=== PATIENT | male | born 1940 | race Caucasian/White ===

== ENCOUNTER 2020-09-07 13:24 | Outpatient (REF) | payer MEDICARE, MEDICAID, SELFPAY ==
--- NOTE | 2020-09-07 | US_ITS ---
EXAMINATION: ULTRASOUND ARTERIAL LOWER EXTREMITY BILATERAL CLINICAL INFORMATION: Assess for peripheral arterial disease. COMPARISON: None TECHNIQUE: Multiple 2-D grayscale and duplex Doppler ultrasound images of the arteries were obtained in the lower extremity bilaterally. FINDINGS: Mild to moderate echogenic atherosclerotic plaque is seen bilaterally causing areas of mild luminal narrowing. Normal triphasic and biphasic waveforms are seen bilaterally. Peak systolic arterial velocities are as follows in centimeters per second: Left: Common femoral: 156 cm/sec Profunda femoral: 128 cm/sec Superficial femoral proximal: 104 cm/sec Superficial femoral mid: 355 cm/sec. Superficial femoral distal: 163 cm/sec Popliteal: 72 cm/sec. Peroneal: 57 cm/sec Posterior tibial (prox/mid/distal): 17/19/14cm/sec Right: Common femoral: 148 cm/sec Profunda femoral: 105 cm/sec Superficial femoral proximal: 129 cm/sec Superficial femoral mid: 436 cm/sec. Superficial femoral distal: 77 cm/sec Popliteal: 55 cm/sec. Peroneal: 140 cm/sec Posterior tibial (prox/mid/distal): 71/22/35cm/sec US/US arterial duplex LE BI IMPRESSION: Focally increased arterial velocities in the mid segments of the superficial femoral arteries bilaterally as well is in the left peroneal artery. Gross luminal narrowing is seen in these regions secondary to more prominent atherosclerosis. These findings are consistent with moderate grade stenosis.
== END 2020-09-07 13:25 | disposition home or self-care (01) ==
LOC: HO.US 13:24
PROVIDERS: Visit Provider Family Medicine
DX: M79.89 Other specified soft tissue disorders (principal); M79.604 Pain in right leg; M79.605 Pain in left leg; I73.9 Peripheral vascular disease, unspecified
CPT/HCPCS: 93925

== ENCOUNTER 2020-09-15 10:25 | Outpatient (REF) | payer MEDICARE, MEDICAID, SELFPAY ==
--- NOTE | 2020-09-15 10:00 | EMG_ITS ---
HISTORY OF PRESENT ILLNESS: This is an 80-year-old man, who has had diabetes since the mid , who has bilateral lower extremity pain, numbness, and weakness. PHYSICAL EXAMINATION: On examination, he is alert and oriented with normal intellectual functions. Cranial nerves II through XII are normal. Muscle tone and strength are normal in all 4 extremities except for atrophy and weakness of the extensor digitorum brevis muscle bilaterally. Absent reflexes. IMPRESSION: Diabetic peripheral neuropathy. Nerve conduction EMG study: Severe axonal sensory motor peripheral neuropathy in the lower extremities consistent with diabetic neuropathy. EMG evidence of distal chronic denervated changes in the right lower extremity. MD JOSE Mcmillan/TRES / [id number]
== END 2020-09-15 10:26 | disposition home or self-care (01) ==
LOC: HO.NEURO 10:25
PROVIDERS: Visit Provider Family Medicine
DX: M79.604 Pain in right leg (principal); M79.605 Pain in left leg
CPT/HCPCS: 95860; 95886; 95912

== ENCOUNTER 2021-07-08 18:52 | Inpatient (IN) | payer MEDICARE, MEDICAID, SELFPAY ==
--- NOTE | ~2021-07-08 | XR_ITS ---
EXAMINATION: XR CHEST CLINICAL INFORMATION: Hospital admission COMPARISON: None TECHNIQUE: Frontal view of the chest was obtained. FINDINGS: No significant abnormality is noted involving the heart, lungs, mediastinum, bony thorax or soft tissues. XR/XR chest 1V IMPRESSION: No acute intrathoracic disease
--- NOTE | ~2021-07-08 | FL_ITS ---
EXAMINATION: XR BARIUM SWALLOW CLINICAL INFORMATION: Dysphagia/globus sensation COMPARISON: None TECHNIQUE: Fluoroscopic guidance was provided for modified barium swallow performed by speech and hearing department. Patient was administered thin and thick liquid barium and various food media mixed with barium. FINDINGS: No aspiration or penetration is seen with any media. FLUOROSCOPY TIME: 1.9 minutes DOSE AREA PRODUCT: 2 Barba per centimeter squared. FL/FL Modified Barium Swallow IMPRESSION: Unremarkable examination. No aspiration or penetration is seen.
--- NOTE | ~2021-07-08 | CT_ITS ---
EXAMINATION: CT HEAD WITHOUT CONTRAST CLINICAL INFORMATION: Fall. Neuropathy. COMPARISON: Previous head CT June 2012 TECHNIQUE: Contiguous axial imaging was performed from the skull base to vertex without intravenous administration of contrast. This CT examination was performed using dose optimization techniques as appropriate, variously including the following: *Automated exposure control *Adjustment of mA and/or kV according to patient size (this includes techniques or standardized protocols for targeted exams where dose is matched to indication/reason for exam; i.e. extremities or head) *Use of iterative reconstruction technique DLP: 694 mGy-cm FINDINGS: There is no evidence of an extra-axial collection. There is no evidence of intra-axial or extra-axial hemorrhage. The ventricles and extra-axial CSF spaces are slightly prominent suggestive of mild age-appropriate generalized atrophy. There is mild nonspecific periventricular white matter disease. No mass, mass effect or infarct is seen. No skull fracture is seen. There are degenerative changes at C1-C2. Visualized paranasal sinuses, mastoid air cells and middle ears are clear. CT/CT head/brain wo IV con IMPRESSION: No acute findings. Age-related prominence of the ventricles and extra-axial CSF spaces and mild nonspecific periventricular white matter disease.
[2021-07-08 18:59] VITALS: BP 180/80; PULSE 76; O2SAT 99
[2021-07-08 19:08] VITALS: BP 179/72; PULSE 55; RESP 16; TEMP 36.5; O2SAT 99; BMI 24.0
--- NOTE | 2021-07-08 19:49 | PC.NURSE ---
MD Love notified of pt blood glucose [employer]
--- NOTE | 2021-07-08 20:16 | ED.GENADULT ---
HPI - General Adult General Chief complaint: Failure to Thrive Stated complaint: FTT Time Seen by Provider: 07/08/21 20:16 Source: patient Mode of arrival: EMS Limitations: language barrier (Setswana-speaking) History of Present Illness HPI narrative: Patient is an 81-year-old male with unknown past medical history who has not been paying his rent so the landlord called the police for a wellness check. EMS was called because the patient was living in disarray surrounded by urine and trash. Patient states he cannot ambulate because his legs are numb from his toes to his knees. He states this is been getting worse over the last few months. He states he is unable to ambulate and has just been sitting in his chair eating boxed food for the last 6 days. He has no family in the area and is unable to care for himself. He states last time took insulin was about a year ago. He has also has blurry vision, increased thirst and urination and some dizziness. He denies fevers, chest pain, shortness of breath and headache. He states he has no family in the area except for 1 son who lives in [place]. He also is concerned as he has white discharge on his penis underneath the foreskin which she states she has to wipe clean several times per day, it is also itchy.. Related Data Allergies Allergy/AdvReac Type Severity Reaction Status Date / Time No Known Allergies Allergy Unverified 07/08/20 17:17 [No Known Allergies*] Review of Systems Review of Systems: Yes all other systems are reviewed and are negative PMFSH Social History Social History Advance Directives: No Advance Directives Information Provided: No Physical Exam Vital Signs: Vital Signs: Last Vital Signs Temp 98.5 F 07/08/21 23:48 Pulse 55 07/08/21 23:48 Resp 14 07/08/21 23:48 BP 114/52 L 07/08/21 23:48 Pulse Ox 100 07/08/21 23:48 Body Mass Index 24.0 Const: General: cooperative, comfortable, no acute distress and poor hygiene Nutritional Appearance: thin Orientation/consciousness: patient oriented x3 Limitations: no limitations HENMT: Head: Yes normal to inspection, Yes normocephalic and Yes atraumatic Face and sinus: Yes normal facial exam Eyes: General: appearance normal, both eyes and all related structures Pupils: Equal, round and reactive pupils present EOM: EOMs intact bilaterally Neck: Neck: Yes normal visual inspection and Yes full ROM Resp: Effort & Inspection: normal respiratory effort and able to speak in complete sentences Auscultation: clear to auscultation bilaterally Cardio: Rate: regular rate Rhythm: regular rhythm Heart sounds: normal S1 and S2 GI: Inspection: Yes normal to inspection Palpation (GI): Soft to palpation and nontender : Penis: uncircumcised (Thick white surrounding penis ) and foreskin retracts Skin: General skin exam: no rashes or lesions noted Neuro: General: patient oriented x3 Cranial nerves: Yes Equal, round and reactive pupils present Extrem: General: Yes normal to inspection Course Course Course Narrative: 81-year-old male with past medical history of diabetes found living in disarray in his home, has not been paying rent or cleaning himself or his house or eating or taking medications. Vital signs are stable although he is a little hypertensive at 179/72. Physical exam are call for numbness below the knees bilaterally. Patient also has buildup of something over his feet and toes, this could be dirt, will have the nurse oak his feet to be able to perform a better exam. Patient also has not bathed in many weeks, will have nurse wash him. Will get chest x-ray labs, EKG urine COVID and reassess. Likely DKA Reevaluation(s) Reevaluation #1: Blood sugar 629, acetone negative, sodium 132. BUN 19, creatinine 1.41, BNP 168, will give 2 L LR as well as 5 units of insulin. Plan on admission. Text to hospitalist Time: 21:46 Medical Decision Making Lab Data Result diagrams: 07/08/21 20:43 07/08/21 18:46 Labs: Lab Results 07/08/21 07/08/21 07/08/21 Range/Units 18:46 18:46 20:43 WBC 6.8 (4.8-10.8) X10*3/uL RBC 4.18 L (4.60-5.80) X10*6/uL Hgb 13.4 L (14.0-18.0) g/dl Hct 38.3 L (42-52) % MCV 91.6 (80-98) fL MCH 32.1 (27.0-33.0) pg MCHC 35.0 (31.0-36.0) g/dl RDW 12.7 (11.0-16.0) % Plt Count 195 (160-400) X10*3/uL MPV 11.6 (9.4-12.4) fL Immature Gran % (Auto) 0.4 (0.0-0.4) % Neut % (Auto) 61.2 (45-73) % Lymph % (Auto) 30.0 (20-40) % [place] % (Auto) 7.7 (2-11) % Eos % (Auto) 0.6 (0-4) % Baso % (Auto) 0.1 (0-2) % Lymph # (Auto) 2.0 (1.2-4.9) X10*3/uL [place] # (Auto) 0.5 (0.1-1.2) X10*3/uL Eos # (Auto) 0.0 (0.0-0.4) X10*3/uL Baso # (Auto) 0.0 (0.0-0.2) X10*3/uL Abs Immat Gran (auto) 0.03 (0.00-0.03) X10*3/uL Absolute Neuts (auto) 4.1 (2.0-8.3) X10*3/uL Absolute Nucleated RBC 0.000 (0.0-0.012) X10*3/uL Nucleated RBC % (auto) 0.0 (0.0-0.2) /100WBC Sodium 132 L (135-145) mmol/L Potassium 4.8 (3.3-5.1) mmol/L Chloride 96 (96-108) mmol/L Carbon Dioxide 24 (22-29) mmol/L Anion Gap 17 (12-20) BUN 19 H (9-16) mg/dL Creatinine 1.41 H (0.5-1.4) mg/dL Estim Creat Clear Calc 33.8 Estimated GFR 48 Random Glucose 629 H* (60-115) mg/dL Calcium 9.1 (8.4-10.2) mg/dL Total Creatine Kinase 41 (38-174) U/L Troponin I High Sens (<3.5-35.0) ng/L B-Natriuretic Peptide (<100) pg/mL Urine Color STRAW Urine Appearance CLEAR Urine pH 6.0 (5.0-8.0) Ur Specific [place] <= 1.005 (1.005-1.025) Urine Protein NEG (NEG-TRACE) MG/DL Urine Glucose (UA) >=1000 H (NEG) MG/DL Urine Ketones 15 (NEG) MG/DL Urine Blood NEG (NEG) Urine Nitrite NEG (NEG) Ur Leukocyte Esterase NEG (NEG) Urine RBC 0-2 (0) /HPF Urine WBC 0 (0-4) /HPF Ur Squamous Epith Cells NONE /LPF Urine Bacteria NONE /LPF Acetone, Qual Negative (Negative) COVID-19 (KELLIE) (Negative) COVID-19 Clin Com 07/08/21 07/08/21 Range/Units 20:43 21:49 WBC (4.8-10.8) X10*3/uL RBC (4.60-5.80) X10*6/uL Hgb (14.0-18.0) g/dl Hct (42-52) % MCV (80-98) fL MCH (27.0-33.0) pg MCHC (31.0-36.0) g/dl RDW (11.0-16.0) % Plt Count (160-400) X10*3/uL MPV (9.4-12.4) fL Immature Gran % (Auto) (0.0-0.4) % Neut % (Auto) (45-73) % Lymph % (Auto) (20-40) % [place] % (Auto) (2-11) % Eos % (Auto) (0-4) % Baso % (Auto) (0-2) % Lymph # (Auto) (1.2-4.9) X10*3/uL [place] # (Auto) (0.1-1.2) X10*3/uL Eos # (Auto) (0.0-0.4) X10*3/uL Baso # (Auto) (0.0-0.2) X10*3/uL Abs Immat Gran (auto) (0.00-0.03) X10*3/uL Absolute Neuts (auto) (2.0-8.3) X10*3/uL Absolute Nucleated RBC (0.0-0.012) X10*3/uL Nucleated RBC % (auto) (0.0-0.2) /100WBC Sodium (135-145) mmol/L Potassium (3.3-5.1) mmol/L Chloride (96-108) mmol/L Carbon Dioxide (22-29) mmol/L Anion Gap (12-20) BUN (9-16) mg/dL Creatinine (0.5-1.4) mg/dL Estim Creat Clear Calc Estimated GFR Random Glucose (60-115) mg/dL Calcium (8.4-10.2) mg/dL Total Creatine Kinase (38-174) U/L Troponin I High Sens 5.6 (<3.5-35.0) ng/L B-Natriuretic Peptide 168 H (<100) pg/mL Urine Color Urine Appearance Urine pH (5.0-8.0) Ur Specific [place] (1.005-1.025) Urine Protein (NEG-TRACE) MG/DL Urine Glucose (UA) (NEG) MG/DL Urine Ketones (NEG) MG/DL Urine Blood (NEG) Urine Nitrite (NEG) Ur Leukocyte Esterase (NEG) Urine RBC (0) /HPF Urine WBC (0-4) /HPF Ur Squamous Epith Cells /LPF Urine Bacteria /LPF Acetone, Qual (Negative) COVID-19 (KELLIE) Negative (Negative) COVID-19 Clin Com See Note Discharge Plan Discharge Clinical Impression: Acute hyperglycemia, Neuropathy, CKD (chronic kidney disease) Patient Disposition: Admitted As Inpatient
[2021-07-08 20:50] LABS: Acetone, serum QL Negative (Negative)
[2021-07-08 20:53] LABS: MANUAL DIFF FLAG NO
[2021-07-08 20:56] LABS: Basophils Percent Auto 0.1 % (0-2); Eosinophils Percent Auto 0.6 % (0-4); Hematocrit 38.3 % (42-52); Hemoglobin 13.4 g/dl (14.0-18.0); Imm Gran Abs Auto 0.03 X10*3/uL (0.00-0.03); Imm Gran Pct Auto 0.4 % (0.0-0.4); Mean Corpuscular Hemoglobin 32.1 pg (27.0-33.0); Mean Corpuscular Volume 91.6 fL (80-98); Mean Platelet Volume 11.6 fL (9.4-12.4); Monocytes Absolute Auto 0.5 X10*3/uL (0.1-1.2); Monocytes Percent Auto 7.7 % (2-11); Neutrophils Absolute Auto 4.1 X10*3/uL (2.0-8.3); Neutrophils Percent Auto 61.2 % (45-73); Platelet Count 195 X10*3/uL (160-400); Red Blood Count 4.18 X10*6/uL (4.60-5.80); Red Cell Distribution Width 12.7 % (11.0-16.0); White Blood Count 6.8 X10*3/uL (4.8-10.8)
--- NOTE | 2021-07-08 20:56 | ECG_ITS ---
Test Reason : GENERAL MEDICAL Blood Pressure : / mmHG Vent. Rate : 052 BPM Atrial Rate : 052 BPM P-R Int : 172 ms QRS Dur : 074 ms QT Int : 472 ms P-R-T Axes : 068 065 085 degrees QTc Int : 438 ms Sinus bradycardia Anteroseptal infarct , age undetermined Abnormal ECG When compared with ECG of 14-JUL-2017 17:17, Anteroseptal infarct is now Present ST elevation now present in Anterior leads Nonspecific T wave abnormality now evident in Lateral leads Referred By: Estephanie Pacheco Electronically Signed By:ROLAND DAVID
[2021-07-08 21:00] LABS: Appearance Urine CLEAR; Color Urine STRAW; Glucose Urine UA >=1000 MG/DL (NEG); Leukocyte Esterase Urine NEG (NEG); Nitrite Urine NEG (NEG); Specific Gravity - Urine <= 1.005 (1.005-1.025); Urine Blood NEG (NEG); Urine Ketones 15 MG/DL (NEG); Urine Protein NEG (NEG-TRACE)
[2021-07-08 21:21] LABS: B Type Natriuretic Peptide 168 pg/mL (<100); Troponin-I High Sensitivity 5.6 ng/L (<3.5-35.0)
[2021-07-08 21:21] LABS: RBC Urine 0-2 /HPF (0); WBC Urine 0 /HPF (0-4)
[2021-07-08 21:31] LABS: Anion Gap 17 (12-20); Blood Urea Nitrogen 19 mg/dL (9-16); Calcium 9.1 mg/dL (8.4-10.2); Carbon Dioxide 24 mmol/L (22-29); Chloride 96 mmol/L (96-108); Creatinine Clr Calc Pharmacy 33.8; Estimated Glomerular Filt Rate 48; Glucose Random 629 mg/dL (60-115); Potassium 4.8 mmol/L (3.3-5.1); Sodium 132 mmol/L (135-145)
[2021-07-08 22:10] LABS: COVID-19 Test Negative (Negative); IDNOW Serial# 9DD0AD1C
--- NOTE | 2021-07-08 22:18 | PC.NURSE ---
Pt noted to be standing and urinating on floor, was unable to utilize urinal or call light (both within reach). Pt redirected back to bed, new urinal placed, education reinforced on calling for assistance
[2021-07-08] MEDS: Insulin Regular, Human 100 UNIT/ML 3 ML VIAL IVPUSH (22:37)
--- NOTE | 2021-07-08 22:48 | PM.IMHP ---
History of Present Illness Date of Service: 07/08/21 Chief Complaint: Adult failure to thrive 81-year-old male with a past medical history of diabetes-not taking any anti diabetics at home; presented to the hospital with a chief complaint fall. Patient is Indonesian-speaking, spoke to the patient along with the architect naval. Reportedly patient has not been paying rent and landed on send somebody for wellness check noted that patient was very dishevelled and unkept; subsequently police brought him to the ER for further evaluation. Patient reports that does not take any medications at home. Denies any toxic habits. Mentions that walks around the house okay but uses a cane. But he numbness in his bilateral feet unable to the bottom; had multiple falls. Denies any head strike or loss of consciousness. Denies any seizure-like activity. Denies any chest pain palpitations lightheadedness or dizziness. Reports he is unsteady on his gait; denies any hip pain pain or back pain. Mentions that he does not go out much; usually eats soup and bread. Patient reports that whenever he eats he has a feeling of food stuck in his throat; also has burning sensation radiating up from his epigastrium into the throat; Complains of urinary frequency. Review of all other systems is negative except mentioned above ER course: For ER team patient on presentation noted to be uncapped; labs noted to elevated creatinine of 1.4-unknown baseline; elevated fingerstick glucose in 600; given regular insulin; IV fluids; when tried to obtain urine ER team noticed concerns for possible penile fungal infection versus smegma. Placed nystatin powder. Admitted to the hospital for further management. [facility] Pertinent family history: Reviewed Social History Advance Directives: No Advance Directives Information Provided: No Meds Allergies Allergy/AdvReac Type Severity Reaction Status Date / Time No Known Allergies Allergy Unverified 07/08/20 17:17 [No Known Allergies*] Active Medications: Current Medications Dextrose (Dextrose 50 % 25 Gm/50 Ml Vial) 25 gm IVPUSH Q15M PRN; Protocol PRN Reason: per Hypoglycemia Standing Ord. Famotidine (Famotidine/Pf 20 Mg/2 Ml Vial) 20 mg IVPUSH BID CHRISTIANE Glucose (Glucose Gel 15 Gm Gel..Gram.) 15 gm PO Q15M PRN; Protocol PRN Reason: per Hypoglycemia Standing Ord. Lactated Ringer's/ Lactated (Ringer's) 2,000 mls @ 999 mls/hr IV .Q2H1M ONE Stop: 07/08/21 23:42 Insulin Human Lispro (Insulin Lispro 100 Unit/Ml 3 Ml Vial) 0 unit SUBCUT QIDACHS [facility]; Protocol Pharmacy Consult (Consult Rx Perform Med Rec) 1 each MISCELLANE ONCE PRN PRN Reason: Consult order Physical Exam Vital Signs and Narrative: Vital Signs: Last Vital Signs Temp 97.7 F 07/08/21 19:08 Pulse 55 07/08/21 19:08 Resp 16 07/08/21 19:08 BP 179/72 H 07/08/21 19:08 Pulse Ox 99 07/08/21 19:08 Body Mass Index 24.0 Gen: Appears be in no acute distress HEENT: NCAT, Moist mucosa. Pulmonary: Vesicular breath sounds, fair air entry CVS: Normal S1-S2 Abdomen: BS+, Soft, Nontender Extremities: Warm well perfused Neuro: Alert and awake. Moves all extremities equally; slightly decreased sensations on bilateral lower extremities; Results Labs CBC and Chem 7: 07/08/21 20:43 07/08/21 18:46 Labs: Laboratory Results - last 24 hr 07/08/21 07/08/21 07/08/21 18:46 18:46 20:43 MCV 91.6 MCH 32.1 MCHC 35.0 RDW 12.7 Plt Count 195 MPV 11.6 Immature Gran % (Auto) 0.4 Neut % (Auto) 61.2 Lymph % (Auto) 30.0 [place] % (Auto) 7.7 Eos % (Auto) 0.6 Baso % (Auto) 0.1 Lymph # (Auto) 2.0 [place] # (Auto) 0.5 Eos # (Auto) 0.0 Baso # (Auto) 0.0 Abs Immat Gran (auto) 0.03 Absolute Neuts (auto) 4.1 Absolute Nucleated RBC 0.000 Nucleated RBC % (auto) 0.0 Anion Gap 17 Estim Creat Clear Calc 33.8 Estimated GFR 48 Random Glucose 629 H* Calcium 9.1 Total Creatine Kinase 41 Troponin I High Sens B-Natriuretic Peptide Urine Color STRAW Urine Appearance CLEAR Urine pH 6.0 Ur Specific [place] <= 1.005 Urine Protein NEG Urine Glucose (UA) >=1000 H Urine Ketones 15 Urine Blood NEG Urine Nitrite NEG Ur Leukocyte Esterase NEG Urine RBC 0-2 Urine WBC 0 Ur Squamous Epith Cells NONE Urine Bacteria NONE Acetone, Qual Negative COVID-19 (KELLIE) COVID-19 Clin Com 07/08/21 07/08/21 20:43 21:49 MCV MCH MCHC RDW Plt Count MPV Immature Gran % (Auto) Neut % (Auto) Lymph % (Auto) [place] % (Auto) Eos % (Auto) Baso % (Auto) Lymph # (Auto) [place] # (Auto) Eos # (Auto) Baso # (Auto) Abs Immat Gran (auto) Absolute Neuts (auto) Absolute Nucleated RBC Nucleated RBC % (auto) Anion Gap Estim Creat Clear Calc Estimated GFR Random Glucose Calcium Total Creatine Kinase Troponin I High Sens 5.6 B-Natriuretic Peptide 168 H Urine Color Urine Appearance Urine pH Ur Specific [place] Urine Protein Urine Glucose (UA) Urine Ketones Urine Blood Urine Nitrite Ur Leukocyte Esterase Urine RBC Urine WBC Ur Squamous Epith Cells Urine Bacteria Acetone, Qual COVID-19 (KELLIE) Negative COVID-19 Clin Com See Note Imaging Radiologist's Impressions: Impressions Chest X-Ray 07/08/21 20:18 IMPRESSION: No acute intrathoracic disease Assessment and Plan (1) Acute hyperglycemia: Status: Acute (2) Neuropathy: Status: Acute (3) CKD (chronic kidney disease): Status: Acute 81-year-old male with a past medical history of diabetes-not taking any anti diabetics at home; presented to the hospital with a chief complaint fall. Falls: Reports recurrent falls. Exam grossly nonfocal except for mildly decreased sensation bilaterally; concern for neuropathy. Neurology consult. Diabetes/hyperglycemia: Not in DKA. Give the patient insulin sliding scale and Lantus. Supportive care. Polyuria likely in the setting of hyperglycemia. Urinalysis negative for infection. ? Penile fungal infection: Infectious Disease consult. VICKY: Patient's creatinine on presentation is 1.4. Unknown baseline. IV fluids. Dysphagia: And swallow eval/GI consult for possible EGD. Supportive care. Dysphagia screen ?Gastritis/GERD: IV Pepcid. Adult failure to thrive: Concern for severe protein calorie malnutrition. Nutrition consult. DVT prophylaxis: SCD boots Code status: Full code Quality Stroke Does the patient have a stroke diagnosis?: No VTE Prior VTE?: No VTE Risk Level:: Medical - moderate - high VTE Device Contraindication: Treatment Not Indicated VTE Drug Contraindication: N/A - Med Ordered
[2021-07-08 23:37] LABS: Glucose, Whole Blood 493 mg/dL (60-115)
[2021-07-08 23:48] VITALS: BP 114/52; PULSE 55; RESP 14; TEMP 36.9; O2SAT 100
[2021-07-09 01:41] LABS: Glucose, Whole Blood 367 mg/dL (60-115)
[2021-07-09] MEDS: Insulin Glargine,Hum.rec.anlog 100 UNIT/ML 10 ML VIAL 20 UNIT SUBCUT (02:16)
[2021-07-09 05:24] VITALS: BP 122/43; PULSE 55; RESP 16; O2SAT 99
[2021-07-09] MEDS: 0.9 % Sodium Chloride 1,000 ML 100 ML IVCONT ×3 (05:24→22:15)
[2021-07-09 07:08] LABS: MANUAL DIFF FLAG NO
[2021-07-09 07:16] LABS: Basophils Percent Auto 0.2 % (0-2); Eosinophils Percent Auto 0.6 % (0-4); Hematocrit 34.8 % (42-52); Hemoglobin 12.2 g/dl (14.0-18.0); Imm Gran Abs Auto 0.03 X10*3/uL (0.00-0.03); Imm Gran Pct Auto 0.5 % (0.0-0.4); Lymphocytes Absolute Auto 2.5 X10*3/uL (1.2-4.9); Lymphocytes Percent Auto 38.4 % (20-40); Mean Corpuscular HGB Conc 35.1 g/dl (31.0-36.0); Mean Corpuscular Volume 91.3 fL (80-98); Mean Platelet Volume 11.7 fL (9.4-12.4); Monocytes Absolute Auto 0.6 X10*3/uL (0.1-1.2); Monocytes Percent Auto 8.5 % (2-11); Neutrophils Absolute Auto 3.4 X10*3/uL (2.0-8.3); Neutrophils Percent Auto 51.8 % (45-73); Platelet Count 184 X10*3/uL (160-400); Red Blood Count 3.81 X10*6/uL (4.60-5.80); Red Cell Distribution Width 12.6 % (11.0-16.0); White Blood Count 6.6 X10*3/uL (4.8-10.8)
[2021-07-09 07:43] LABS: Glucose, Whole Blood 307 mg/dL (60-115)
[2021-07-09 07:46] LABS: Anion Gap 11 (12-20); Blood Urea Nitrogen 16 mg/dL (9-16); Carbon Dioxide 28 mmol/L (22-29); Chloride 103 mmol/L (96-108); Creatinine Clr Calc Pharmacy 42.9; Estimated Glomerular Filt Rate > 60; Potassium 3.7 mmol/L (3.3-5.1); Sodium 138 mmol/L (135-145)
[2021-07-09 07:53] LABS: Glucose Random 443 mg/dL (60-115)
[2021-07-09] MEDS: Heparin Sodium,Porcine 5,000 UNIT/ML VIAL 5000 UNIT SUBCUT ×3 (08:54→23:09)
[2021-07-09] MEDS: Famotidine/PF 20 MG/2 ML VIAL IVPUSH ×2 (08:54→23:09)
[2021-07-09] MEDS: Insulin Lispro 100 UNIT/ML 3 ML VIAL SUBCUT ×2 (08:54→13:22)
[2021-07-09 09:01] VITALS: BP 127/53; PULSE 54; RESP 14; TEMP 36.6; O2SAT 99
[2021-07-09] MEDS: 0.9 % Sodium Chloride Flush 3 ML SYRINGE IVFLUSH ×2 (09:46→17:40)
[2021-07-09 09:50] LABS: Alanine Aminotransferase 16 U/L (0-40); Albumin Level 3.4 g/dL (3.5-5.0); Alkaline Phosphatase 67 U/L (39-117); Aspartate Amino Transferase 12 U/L (5-37); Bilirubin Direct 0.2 mg/dL (0.0-0.5); Bilirubin Total 0.5 mg/dL (0.0-1.0); Total Protein 5.6 g/dL (6.5-8.0)
--- NOTE | 2021-07-09 10:02 | PHA.MEDREC ---
Pharmacy Consult ? Medication Reconciliation Pharmacy has completed the medication reconciliation. Per medical notes, the pt has lived alone and not taken any medications. He cannot walk well so sits in a chair all day and says he hasn't used insulin in over 1 year. I put the medications he has filled and should be on his med list.
[2021-07-09 10:12] LABS: Thyroid Stimulating Hormone 2.21 uIU/mL (0.32-4.0)
[2021-07-09 11:09] LABS: Hemoglobin A1c % > 14.0 %
--- NOTE | 2021-07-09 11:35 | PC.NURSE ---
Dr Shafer to bedside, pt agreeable with plan
[2021-07-09 11:48] VITALS: BP 122/55; PULSE 51; RESP 12; TEMP 36.9; O2SAT 99
[2021-07-09 11:55] LABS: Glucose, Whole Blood 224 mg/dL (60-115)
--- NOTE | 2021-07-09 12:16 | P.PNIM_ITS ---
Subjective Subjective Date of Service: 07/09/21 Interval History: Muscle cramping improved Denies he has any health problems, despite A1c found to be >14 Lives alone Review of Systems Review of Systems: Yes all other systems are reviewed and are negative Physical Exam Vital Signs: Vital Signs: Last Vital Signs Temp 98.5 F 07/09/21 11:48 Pulse 51 07/09/21 11:48 Resp 12 07/09/21 11:48 BP 122/55 L 07/09/21 11:48 Pulse Ox 99 07/09/21 11:48 Body Mass Index 24.0 Gen: disheveled, bitemporal wasting HEENT: sclera anicteric, dry mucous membranes Neck: supple Lungs: clear to auscultation bilaterally Heart: regular, bradycardic, no murmurs Abd: soft, non-tender, non-distended Ext: no edema Skin: warm/well-perfused Neuro: alert and oriented x3, neuropathy of feet Psych: appropriate affect Objective Data Active Medications Acetaminophen (Acetaminophen 325 Mg Tablet) 650 mg PO Q6H PRN PRN Reason: Pain, Mild (Pain Scale 1-3) Dextrose (Dextrose 50 % 25 Gm/50 Ml Vial) 25 gm IVPUSH Q15M PRN; Protocol PRN Reason: per Hypoglycemia Standing Ord. Famotidine (Famotidine/Pf 20 Mg/2 Ml Vial) 20 mg IVPUSH BID [facility] Last Admin: 07/09/21 08:54 Dose: 20 mg Documented by: DANELLE Glucose (Glucose Gel 15 Gm Gel..Gram.) 15 gm PO Q15M PRN; Protocol PRN Reason: per Hypoglycemia Standing Ord. Heparin Sodium (Porcine) (Heparin Sodium,Porcine 5,000 Unit/Ml Vial) 5,000 unit SUBCUT Q8H [facility] Last Admin: 07/09/21 08:54 Dose: 5,000 unit Documented by: DANELLE Sodium Chloride (Ns) 1,000 mls @ 100 mls/hr IVCONT .Q10H [facility] Last Admin: 07/09/21 05:24 Dose: 100 mls/hr Documented by: CHRISTA Insulin Glargine (Insulin Glargine,Hum.Rec.Anlog 100 Unit/Ml 10 Ml Vial) 20 unit SUBCUT BEDTIME [facility] Last Admin: 07/09/21 02:16 Dose: 20 unit Documented by: CHRISTA Insulin Human Lispro (Insulin Lispro 100 Unit/Ml 3 Ml Vial) 0 unit SUBCUT [facility]; Protocol Last Admin: 07/09/21 08:54 Dose: 10 unit Documented by: DANELLE Melatonin (Melatonin 3 Mg Tablet) 6 mg PO BEDTIME PRN PRN Reason: Insomnia Pharmacy Consult (Consult Rx Perform Med Rec) 1 each MISCELLANE ONCE PRN PRN Reason: Consult order Senna (Sennosides 8.6 Mg Tablet) 17.2 mg PO BEDTIME PRN PRN Reason: Constipation Sodium Chloride (0.9 % Sodium Chloride Flush 3 Ml Syringe) 3 ml IVFLUSH [facility] Last Admin: 07/09/21 09:46 Dose: 3 ml Documented by: KT Labs CBC & Chem 7: 07/09/21 06:34 07/09/21 06:34 Labs: Laboratory Results - last 24 hr 07/08/21 07/08/21 07/08/21 18:46 18:46 20:43 MCV 91.6 MCH 32.1 MCHC 35.0 RDW 12.7 Plt Count 195 MPV 11.6 Immature Gran % (Auto) 0.4 Neut % (Auto) 61.2 Lymph % (Auto) 30.0 [place] % (Auto) 7.7 Eos % (Auto) 0.6 Baso % (Auto) 0.1 Lymph # (Auto) 2.0 [place] # (Auto) 0.5 Eos # (Auto) 0.0 Baso # (Auto) 0.0 Abs Immat Gran (auto) 0.03 Absolute Neuts (auto) 4.1 Absolute Nucleated RBC 0.000 Nucleated RBC % (auto) 0.0 Anion Gap 17 Estim Creat Clear Calc 33.8 Estimated GFR 48 POC Glucose Random Glucose 629 H* Estimat Average Glucose Hemoglobin A1c % Calcium 9.1 Total Bilirubin Direct Bilirubin AST ALT Alkaline Phosphatase Total Creatine Kinase 41 Troponin I High Sens B-Natriuretic Peptide Total Protein Albumin TSH Urine Color STRAW Urine Appearance CLEAR Urine pH 6.0 Ur Specific [place] <= 1.005 Urine Protein NEG Urine Glucose (UA) >=1000 H Urine Ketones 15 Urine Blood NEG Urine Nitrite NEG Ur Leukocyte Esterase NEG Urine RBC 0-2 Urine WBC 0 Ur Squamous Epith Cells NONE Urine Bacteria NONE Acetone, Qual Negative COVID-19 (KELLIE) COVID-19 Clin Com 07/08/21 07/08/21 07/08/21 20:43 21:49 23:31 MCV MCH MCHC RDW Plt Count MPV Immature Gran % (Auto) Neut % (Auto) Lymph % (Auto) [place] % (Auto) Eos % (Auto) Baso % (Auto) Lymph # (Auto) [place] # (Auto) Eos # (Auto) Baso # (Auto) Abs Immat Gran (auto) Absolute Neuts (auto) Absolute Nucleated RBC Nucleated RBC % (auto) Anion Gap Estim Creat Clear Calc Estimated GFR POC Glucose 493 H* Random Glucose Estimat Average Glucose Hemoglobin A1c % Calcium Total Bilirubin Direct Bilirubin AST ALT Alkaline Phosphatase Total Creatine Kinase Troponin I High Sens 5.6 B-Natriuretic Peptide 168 H Total Protein Albumin TSH Urine Color Urine Appearance Urine pH Ur Specific [place] Urine Protein Urine Glucose (UA) Urine Ketones Urine Blood Urine Nitrite Ur Leukocyte Esterase Urine RBC Urine WBC Ur Squamous Epith Cells Urine Bacteria Acetone, Qual COVID-19 (KELLIE) Negative COVID-19 Clin Com See Note 07/09/21 07/09/21 07/09/21 01:37 06:34 06:34 MCV 91.3 MCH 32.0 MCHC 35.1 RDW 12.6 Plt Count 184 MPV 11.7 Immature Gran % (Auto) 0.5 H Neut % (Auto) 51.8 Lymph % (Auto) 38.4 [place] % (Auto) 8.5 Eos % (Auto) 0.6 Baso % (Auto) 0.2 Lymph # (Auto) 2.5 [place] # (Auto) 0.6 Eos # (Auto) 0.0 Baso # (Auto) 0.0 Abs Immat Gran (auto) 0.03 Absolute Neuts (auto) 3.4 Absolute Nucleated RBC 0.000 Nucleated RBC % (auto) 0.0 Anion Gap 11 L Estim Creat Clear Calc 42.9 Estimated GFR > 60 POC Glucose 367 H* Random Glucose 443 H* Estimat Average Glucose Hemoglobin A1c % Calcium 9.0 Total Bilirubin 0.5 Direct Bilirubin 0.2 AST 12 ALT 16 Alkaline Phosphatase 67 Total Creatine Kinase Troponin I High Sens B-Natriuretic Peptide Total Protein 5.6 L Albumin 3.4 L TSH 2.21 Urine Color Urine Appearance Urine pH Ur Specific [place] Urine Protein Urine Glucose (UA) Urine Ketones Urine Blood Urine Nitrite Ur Leukocyte Esterase Urine RBC Urine WBC Ur Squamous Epith Cells Urine Bacteria Acetone, Qual COVID-19 (KELLIE) COVID-19 Clin Com 07/09/21 07/09/21 07/09/21 07:05 07:37 11:47 MCV MCH MCHC RDW Plt Count MPV Immature Gran % (Auto) Neut % (Auto) Lymph % (Auto) [place] % (Auto) Eos % (Auto) Baso % (Auto) Lymph # (Auto) [place] # (Auto) Eos # (Auto) Baso # (Auto) Abs Immat Gran (auto) Absolute Neuts (auto) Absolute Nucleated RBC Nucleated RBC % (auto) Anion Gap Estim Creat Clear Calc Estimated GFR POC Glucose 307 H 224 H Random Glucose Estimat Average Glucose TNP Hemoglobin A1c % > 14.0 Calcium Total Bilirubin Direct Bilirubin AST ALT Alkaline Phosphatase Total Creatine Kinase Troponin I High Sens B-Natriuretic Peptide Total Protein Albumin TSH Urine Color Urine Appearance Urine pH Ur Specific [place] Urine Protein Urine Glucose (UA) Urine Ketones Urine Blood Urine Nitrite Ur Leukocyte Esterase Urine RBC Urine WBC Ur Squamous Epith Cells Urine Bacteria Acetone, Qual COVID-19 (KELLIE) COVID-19 Clin Com Assessment and Plan (1) Acute hyperglycemia: Status: Acute (2) Neuropathy: Status: Acute Assessment and Plan: hospital d#2 81yo M with uncontrolled DM2 non-adherent with insulin presented with unclear history of fall [pt states only had muscle cramps], geno yuria, dysphagia, FTT; found by police living in [facility] admitted for renal insufficiency # VICKY - likely prerenal, resolving with isotonic IV fluid hydration # DM2, uncontrolled - not in DKA but A1c >14. start Lantus/Humalog. # DM2 neuropathy - resume gabapentin # balanitis - likely candidal due to hyperglycemia, treat with clotrimazole topical # dysphagia - PULMONARY DISEASE SPECIALIST evaluation # FTT - suplements # inadequate self-care - Case Mgmt consult - PT eval # VTE ppx - UFH Quality Stroke Does the patient have a stroke diagnosis?: No VTE Prior VTE?: No VTE Risk Level:: Medical - moderate - high VTE Device Contraindication: Treatment Not Indicated VTE Drug Contraindication: N/A - Med Ordered
[2021-07-09 13:24] VITALS: BP 118/53; PULSE 59; RESP 14; O2SAT 98
[2021-07-09 13:25] VITALS: BP 124/52; PULSE 57; O2SAT 98
[2021-07-09 18:47] LABS: Glucose, Whole Blood 289 mg/dL (60-115)
--- NOTE | 2021-07-09 19:01 | P.CNNE_ITS ---
History of Present Illness Data of Consult Service Date: 07/09/21 Primary Care Provider: None Physician HPI Reason for consult: Multiple falls, dementia and inability to take care of himself This is a 81-year-old man with a history of diabetes who lives alone and was brought in because of concerns of inability to take care of himself. He was found to be quite unkempt and brought in by the police. He has not been taking any medications for his diabetes and his admission blood sugar was 600 without ketonuria. The patient is an unreliable historian and other than some pain in his knees and legs and some bruises from his falls he has no complaints. Review of Systems Review of Systems: Yes all other systems are reviewed and are negative PMFSH Family History Pertinent family history: Reviewed Social History Social History Advance Directives: No Advance Directives Information Provided: No Meds Allergies Allergy/AdvReac Type Severity Reaction Status Date / Time No Known Allergies Allergy Unverified 07/08/20 17:17 [No Known Allergies*] Active Medications: Current Medications Acetaminophen (Acetaminophen 325 Mg Tablet) 650 mg PO Q6H PRN PRN Reason: Pain, Mild (Pain Scale 1-3) Clotrimazole (Clotrimazole 1 % Cream 15 Gm Tube) 1 appl TOPICAL BID [facility]; Protocol Dextrose (Dextrose 50 % 25 Gm/50 Ml Vial) 25 gm IVPUSH Q15M PRN; Protocol PRN Reason: per Hypoglycemia Standing Ord. Famotidine (Famotidine/Pf 20 Mg/2 Ml Vial) 20 mg IVPUSH BID [facility] Last Admin: 07/09/21 08:54 Dose: 20 mg Documented by: Gabapentin (Gabapentin 100 Mg Capsule) 200 mg PO BEDTIME [facility] Glucose (Glucose Gel 15 Gm Gel..Gram.) 15 gm PO Q15M PRN; Protocol PRN Reason: per Hypoglycemia Standing Ord. Heparin Sodium (Porcine) (Heparin Sodium,Porcine 5,000 Unit/Ml Vial) 5,000 unit SUBCUT Q8H [facility] Last Admin: 07/09/21 17:39 Dose: 5,000 unit Documented by: Sodium Chloride (Ns) 1,000 mls @ 100 mls/hr IVCONT .Q10H [facility] Last Admin: 07/09/21 15:34 Dose: 100 mls/hr Documented by: Insulin Glargine (Insulin Glargine,Hum.Rec.Anlog 100 Unit/Ml 10 Ml Vial) 30 unit SUBCUT BEDTIME [facility] Insulin Human Lispro (Insulin Lispro 100 Unit/Ml 3 Ml Vial) 0 unit SUBCUT QIDACHS [facility]; Protocol Last Admin: 07/09/21 13:22 Dose: 6 unit Documented by: Melatonin (Melatonin 3 Mg Tablet) 6 mg PO BEDTIME PRN PRN Reason: Insomnia Pharmacy Consult (Consult Rx Perform Med Rec) 1 each MISCELLANE ONCE PRN PRN Reason: Consult order Senna (Sennosides 8.6 Mg Tablet) 17.2 mg PO BEDTIME PRN PRN Reason: Constipation Sodium Chloride (0.9 % Sodium Chloride Flush 3 Ml Syringe) 3 ml IVFLUSH Q[facility] Last Admin: 07/09/21 17:40 Dose: 3 ml Documented by: Home Medications Medication Instructions Recorded Confirmed Last Taken Type gabapentin 100 mg capsule 2 cap PO BEDTIME 07/09/21 07/09/21 Unknown History insulin aspart U-100 100 unit/mL 4 unit SUBCUT QIDACHS 07/09/21 07/09/21 Unknown History (3 mL) subcutaneous pen (Novolog Flexpen U-100 Insulin aspart) insulin detemir U-100 100 unit/mL 50 unit SUBCUT QPM 07/09/21 07/09/21 Unknown History (3 mL) subcutaneous pen (Levemir FlexTouch U-100 Insulin) Physical Exam Vital Signs: Vital Signs: Last Vital Signs Temp 98.5 F 07/09/21 11:48 Pulse 57 07/09/21 13:25 Resp 14 07/09/21 13:24 BP 124/52 L 07/09/21 13:25 Pulse Ox 98 07/09/21 13:25 Body Mass Index 24.0 Const: General: cooperative, comfortable, no acute distress and poor hygiene Nutritional Appearance: thin Orientation/consciousness: patient oriented x3 Limitations: no limitations HENMT: Head: Yes normal to inspection, Yes normocephalic and Yes atraumatic Face and sinus: Yes normal facial exam Eyes: General: appearance normal, both eyes and all related structures P upils: Equal, round and reactive pupils present EOM: EOMs intact bilaterally Neck: Neck: Yes normal visual inspection and Yes full ROM Resp: Effort & Inspection: normal respiratory effort and able to speak in complete sentences Auscultation: clear to auscultation bilaterally Cardio: Rate: regular rate Rhythm: regular rhythm Heart sounds: normal S1 and S2 GI: Inspection: Yes normal to inspection Palpation (GI): Soft to palpation and nontender : Penis: uncircumcised (Thick white surrounding penis ) and foreskin retracts Skin: General skin exam: no rashes or lesions noted Neuro: Other: He is alert pleasant and cooperative follow simple commands. Exam is nonfocal. His reflexes are absent in the lower extremities. There is some atrophy of the leg muscles. Distal sensory loss. Plantar responses are flexor. Gait was not tested he is only able to provide limited information has poor memory partially disoriented to time and place. General: patient oriented x3 Cranial nerves: Yes Equal, round and reactive pupils present Cognition (Neuro): abnormal cognition Deep tendon reflexes (DTR's): Right triceps reflex intensity grade: 0, Left triceps reflex intensity grade: 0, Rt Biceps (C5, C6): 0, Left biceps reflex intensity grade: 0, Right brachioradialis reflex intensity grade: 0, Left brachioradialis reflex intensity grade: 0, Right patellar reflex intensity grade: 0, Left patellar reflex intensity grade: 0, Right ankle reflex intensity grade: 0 and Left ankle reflex intensity grade: 0 Extrem: General: Yes normal to inspection Results Labs CBC & Chem 7: 07/09/21 06:34 07/09/21 06:34 Labs: Short CBC 07/08/21 07/09/21 Range/Units 20:43 06:34 WBC 6.8 6.6 (4.8-10.8) X10*3/uL Hgb 13.4 L 12.2 L (14.0-18.0) g/dl Hct 38.3 L 34.8 L (42-52) % Plt Count 195 184 (160-400) X10*3/uL BMP 07/08/21 07/09/21 18:46 06:34 Sodium 132 L 138 Potassium 4.8 3.7 D Chloride 96 103 Carbon Dioxide 24 28 BUN 19 H 16 Creatinine 1.41 H 1.11 Calcium 9.1 9.0 Cardiac Enzymes 07/08/21 Range/Units 18:46 Total Creatine Kinase 41 (38-174) U/L Liver Function 07/09/21 Range/Units 06:34 Total Bilirubin 0.5 (0.0-1.0) mg/dL Direct Bilirubin 0.2 (0.0-0.5) mg/dL AST 12 (5-37) U/L ALT 16 (0-40) U/L Alkaline Phosphatase 67 (39-117) U/L Albumin 3.4 L (3.5-5.0) g/dL Urine 07/08/21 Range/Units 18:46 Urine Color STRAW Urine Appearance CLEAR Urine pH 6.0 (5.0-8.0) Ur Specific [place] <= 1.005 (1.005-1.025) Urine Protein NEG (NEG-TRACE) MG/DL Urine Glucose (UA) >=1000 H (NEG) MG/DL Assessment and Plan (1) Dementia: Status: Acute (2) Acute hyperglycemia: Status: Acute (3) Neuropathy: Status: Acute Outpatient nerve conduction EMG study of the lower extremities. Control of blood sugar. Vitamin-B complex B50 1 a day Check B12 folate level and thyroid profile CT shows age-related atrophy and white matter changes. EEG on Sunday Procedures Date of Service Date of Service: 07/09/21
--- NOTE | 2021-07-09 21:58 | CONS_ITS ---
DATE OF SERVICE: 07/09/2021 REFERRING PHYSICIAN: Constantino Cuevas MD REASON FOR CONSULTATION: Dysphagia. HISTORY OF PRESENT ILLNESS: The patient is an 81-year-old man, who was admitted to the hospital after presenting to the emergency department with failure to thrive. He describes a 1 year history of food seeming to stick and occasional choking. He also complains of discomfort in the epigastric area, radiating up into the left side of the chest. He has no hematemesis or melena. He has not been taking medication for his stomach. He does describe undergoing colonoscopy, but has never had endoscopy. PAST MEDICAL HISTORY: 1. Diabetes mellitus. 2. Screening colonoscopy in 2008, diverticulosis. CURRENT MEDICATIONS: His current medication list is reviewed in the chart. ALLERGIES: THERE ARE NONE REPORTED. FAMILY HISTORY: He denies any family history of upper GI malignancy. SOCIAL HISTORY: He denies tobacco, alcohol, or substance abuse. REVIEW OF SYSTEMS: SKIN: No pruritus. HEENT: Negative. CARDIOPULMONARY: No shortness of breath or chest pain. GASTROINTESTINAL: As above. He has also had about a 40 to 50 pounds weight loss over the past year by his report. GENITOURINARY: Negative. NEUROPSYCHIATRIC: Negative. PHYSICAL EXAMINATION: GENERAL: Shows a pleasant male, lying in bed. VITAL SIGNS: Reviewed and are stable. SKIN: Anicteric. HEENT: Shows no scleral icterus. NECK: Without lymphadenopathy or thyromegaly. LUNGS: Clear. HEART: Shows a regular rate and rhythm. S1, S2. No murmur. ABDOMEN: Soft without focal masses or tenderness. Bowel sounds are present. No organomegaly is noted. EXTREMITIES: Without edema. LABORATORY DATA: Reviewed. IMPRESSION: Dysphagia with epigastric pain. The differential diagnosis for this is broad and includes peptic ulcer disease, esophageal stricture or erosive esophagitis, malignancy, and gastritis as well as esophageal dysmotility. I discussed endoscopy with him including risks and benefits. He understands these and agrees to proceed. The patient states he is to be discharged later and would like to follow up as an outpatient, which is an option. If he remains in the hospital, this could be done earlier in the week. Thanks for asking me to see him. I will follow him in the hospital with you. MD DIPESH Sawant/TRES / [id number]
[2021-07-09 22:40] VITALS: BP 167/74; PULSE 54; RESP 16; TEMP 36.7; O2SAT 97
--- NOTE | 2021-07-09 22:40 | P.CNID_ITS ---
History of Present Illness Data of Consult Service Date: 07/09/21 Requesting physician: Genoveva Shafer Primary Care Provider: None Physician HPI Reason for consult: possible fungal infection penis area He presents to hospital after being found in unsanitary situation at home. He had urinated on self and had had numbness in legs and unable to care for self. Review of Systems Review of Systems: Yes Unobtainable due to mental condition PMFSH Past Medical History Medical History Opportunistic fungus infection Family History Family history: reviewed and not pertinent Social History Social History Household Members: None Housing: Apartment Do you presently have visiting nurse or other home services: Yes Patient Tobacco Use Status: Former Tobacco user Quit Date: 1999 Tobacco use type: Cigarette Years Smoked: 4 service: No Current occupational status: unemployed Meds Allergies Allergy/AdvReac Type Severity Reaction Status Date / Time No Known Allergies Allergy Unverified 07/08/20 17:17 [No Known Allergies*] Active Medications: Current Medications Acetaminophen (Acetaminophen 325 Mg Tablet) 650 mg PO Q6H PRN PRN Reason: Pain, Mild (Pain Scale 1-3) Clotrimazole (Clotrimazole 1 % Cream 15 Gm Tube) 1 appl TOPICAL BID [facility]; Protocol Dextrose (Dextrose 50 % 25 Gm/50 Ml Vial) 25 gm IVPUSH Q15M PRN; Protocol PRN Reason: per Hypoglycemia Standing Ord. Famotidine (Famotidine/Pf 20 Mg/2 Ml Vial) 20 mg IVPUSH BID [facility] Last Admin: 07/09/21 08:54 Dose: 20 mg Documented by: Gabapentin (Gabapentin 100 Mg Capsule) 200 mg PO BEDTIME [facility] Glucose (Glucose Gel 15 Gm Gel..Gram.) 15 gm PO Q15M PRN; Protocol PRN Reason: per Hypoglycemia Standing Ord. Heparin Sodium (Porcine) (Heparin Sodium,Porcine 5,000 Unit/Ml Vial) 5,000 unit SUBCUT Q8H [facility] Last Admin: 07/09/21 17:39 Dose: 5,000 unit Documented by: Sodium Chloride (Ns) 1,000 mls @ 100 mls/hr IVCONT .Q10H [facility] Last Admin: 07/09/21 22:15 Dose: 100 mls/hr Documented by: Insulin Glargine (Insulin Glargine,Hum.Rec.Anlog 100 Unit/Ml 10 Ml Vial) 30 unit SUBCUT BEDTIME [facility] Insulin Human Lispro (Insulin Lispro 100 Unit/Ml 3 Ml Vial) 0 unit SUBCUT QIDACHS [facility]; Protocol Last Admin: 07/09/21 16:30 Dose: Not Given Documented by: Melatonin (Melatonin 3 Mg Tablet) 6 mg PO BEDTIME PRN PRN Reason: Insomnia Pharmacy Consult (Consult Rx Perform Med Rec) 1 each MISCELLANE ONCE PRN PRN Reason: Consult order Senna (Sennosides 8.6 Mg Tablet) 17.2 mg PO BEDTIME PRN PRN Reason: Constipation Sodium Chloride (0.9 % Sodium Chloride Flush 3 Ml Syringe) [facility] Last Admin: 07/09/21 17:40 Dose: 3 ml Documented by: Home Medications Medication Instructions Recorded Confirmed Last Taken Type gabapentin 100 mg capsule 2 cap PO BEDTIME 07/09/21 07/09/21 Unknown History insulin detemir U-100 100 unit/mL 50 unit SUBCUT QPM 07/09/21 07/09/21 Unknown History (3 mL) subcutaneous pen (Levemir FlexTouch U-100 Insulin) Physical Exam Vital Signs: Vital Signs: Last Vital Signs Temp 98.5 F 07/09/21 11:48 Pulse 57 07/09/21 13:25 Resp 14 07/09/21 13:24 BP 124/52 L 07/09/21 13:25 Pulse Ox 98 07/09/21 13:25 Body Mass Index 24.0 Const: General: cooperative HENMT: Head: Yes normal to inspection Throat: Yes posterior oropharynx normal Resp: Effort & Inspection: normal respiratory effort Cardio: Rate: regular rate Rhythm: regular rhythm GI: Inspection: Yes GJ-tube present Palpation (GI): Soft to palpation and nontender : Other: some fungal appearing irritation penile area Results Labs CBC & Chem 7: 07/09/21 06:34 07/10/21 07:02 Labs: Short CBC 07/09/21 Range/Units 06:34 WBC 6.6 (4.8-10.8) X10*3/uL Hgb 12.2 L (14.0-18.0) g/dl Hct 34.8 L (42-52) % Plt Count 184 (160-400) X10*3/uL BMP 07/09/21 06:34 Sodium 138 Potassium 3.7 D Chloride 103 Carbon Dioxide 28 BUN 16 Creatinine 1.11 Calcium 9.0 Liver Function 07/09/21 Range/Units 06:34 Total Bilirubin 0.5 (0.0-1.0) mg/dL Direct Bilirubin 0.2 (0.0-0.5) mg/dL AST 12 (5-37) U/L ALT 16 (0-40) U/L Alkaline Phosphatase 67 (39-117) U/L Albumin 3.4 L (3.5-5.0) g/dL Assessment and Plan (1) Dementia: Status: Acute (2) Opportunistic fungus infection: Status: Acute He has some penile fungal irritation Can use topical agents,antifungals Lotrimin for a week
[2021-07-09] MEDS: Gabapentin 100 MG CAPSULE 200 MG PO (23:09)
[2021-07-09] MEDS: Insulin Glargine,Hum.rec.anlog 100 UNIT/ML 10 ML VIAL 30 UNIT SUBCUT (23:10)
[2021-07-09 23:27] LABS: Glucose, Whole Blood 225 mg/dL (60-115)
--- NOTE | 2021-07-10 | EEG_ITS ---
The waking background activity consists of a diffuse 6.5 to 7 hertz theta at moderate voltage, intermixed anteriorly with low-voltage fast frequencies. Photic stimulation is without activation. Hyperventilation was omitted. No sleep stages are identified. IMPRESSION: This is an abnormal EEG due to diffuse background slowing consistent with a diffuse encephalopathic process. No epileptiform discharges are seen. MD JOSE Mcmillan/TRES / [id number]
[2021-07-10 00:37] LABS: Glucose, Whole Blood 219 mg/dL (60-115)
[2021-07-10] MEDS: Insulin Lispro 100 UNIT/ML 3 ML VIAL SUBCUT ×2 (00:37→21:20)
[2021-07-10 06:29] VITALS: BP 100/43; PULSE 46; RESP 16; O2SAT 98
[2021-07-10] MEDS: 0.9 % Sodium Chloride 1,000 ML 100 ML IVCONT (06:31)
--- NOTE | 2021-07-10 07:49 | PC.NURSE ---
POC 27, 1 AMP DEXTROSE GIVEN. PT EATING BREAKFAST. NS STOPPED AT THIS TIME. HOSPITALIST AWARE.
[2021-07-10 07:50] VITALS: PULSE 55; RESP 16; O2SAT 95
[2021-07-10 07:59] LABS: Anion Gap 15 (12-20); Blood Urea Nitrogen 13 mg/dL (9-16); Calcium 8.9 mg/dL (8.4-10.2); Carbon Dioxide 20 mmol/L (22-29); Chloride 108 mmol/L (96-108); Creatinine Clr Calc Pharmacy 56.1; Estimated Glomerular Filt Rate > 60; Glucose Random 42 mg/dL (60-115); Potassium 3.7 mmol/L (3.3-5.1); Sodium 139 mmol/L (135-145)
--- NOTE | 2021-07-10 08:28 | PC.NURSE ---
pt refusing am meds and repeat poc at this time
[2021-07-10 09:38] LABS: Glucose, Whole Blood 188 mg/dL (60-115)
[2021-07-10 09:38] LABS: Glucose, Whole Blood 27 mg/dL (60-115)
--- NOTE | 2021-07-10 11:38 | P.PNIM_ITS ---
Subjective Subjective Date of Service: 07/10/21 Interval History: History in Russian Hypoglycemic this am; recovered with D50 Taking POs Still c/o dysphagia Unsteady on his feet Review of Systems Review of Systems: Yes all other systems are reviewed and are negative Physical Exam Vital Signs: Vital Signs: Last Vital Signs Temp 98.1 F 07/09/21 22:40 Pulse 55 07/10/21 07:50 Resp 16 07/10/21 07:50 BP 100/43 L 07/10/21 06:29 Pulse Ox 95 07/10/21 07:50 Body Mass Index 24.0 Gen: disheveled, bitemporal wasting HEENT: sclera anicteric, dry mucous membranes Neck: supple Lungs: clear to auscultation bilaterally Heart: regular, bradycardic, no murmurs Abd: soft, non-tender, non-distended Ext: no edema Skin: warm/well-perfused Neuro: alert and oriented x3, neuropathy of feet Psych: appropriate affect Objective Data Active Medications Acetaminophen (Acetaminophen 325 Mg Tablet) 650 mg PO Q6H PRN PRN Reason: Pain, Mild (Pain Scale 1-3) Clotrimazole (Clotrimazole 1 % Cream 15 Gm Tube) 1 appl TOPICAL BID [facility]; Protocol Last Admin: 07/10/21 08:25 Dose: Not Given Documented by: KAYLYN Non-Admin Reason: Patient Refused Dextrose (Dextrose 50 % 25 Gm/50 Ml Vial) 25 gm IVPUSH Q15M PRN; Protocol PRN Reason: per Hypoglycemia Standing Ord. Last Admin: 07/10/21 07:46 Dose: 25 gm Documented by: KAYLYN Famotidine (Famotidine/Pf 20 Mg/2 Ml Vial) 20 mg IVPUSH BID [facility] Last Admin: 07/10/21 08:25 Dose: Not Given Documented by: KAYLYN Non-Admin Reason: Patient Refused Gabapentin (Gabapentin 100 Mg Capsule) 200 mg PO BEDTIME [facility] Last Admin: 07/09/21 23:09 Dose: 200 mg Documented by: CHRISTINE Glucose (Glucose Gel 15 Gm Gel..Gram.) 15 gm PO Q15M PRN; Protocol PRN Reason: per Hypoglycemia Standing Ord. Heparin Sodium (Porcine) (Heparin Sodium,Porcine 5,000 Unit/Ml Vial) 5,000 unit SUBCUT Q8H [facility] Last Admin: 07/10/21 08:25 Dose: Not Given Documented by: KAYLYN Non-Admin Reason: Patient Refused Sodium Chloride (Ns) 1,000 mls @ 100 mls/hr IVCONT .Q10H [facility] Last Admin: 07/10/21 06:31 Dose: 100 mls/hr Documented by: VERN Insulin Human Lispro (Insulin Lispro 100 Unit/Ml 3 Ml Vial) 0 unit SUBCUT QIDACHS [facility]; Protocol Last Admin: 07/10/21 07:48 Dose: Not Given Documented by: KAYLYN Non-Admin Reason: No Insulin Coverage Melatonin (Melatonin 3 Mg Tablet) 6 mg PO BEDTIME PRN PRN Reason: Insomnia Pharmacy Consult (Consult Rx Perform Med Rec) 1 each MISCELLANE ONCE PRN PRN Reason: Consult order Senna (Sennosides 8.6 Mg Tablet) 17.2 mg PO BEDTIME PRN PRN Reason: Constipation Sodium Chloride (0.9 % Sodium Chloride Flush 3 Ml Syringe) 3 ml IVFLUSH QSHIFT [facility] Last Admin: 07/10/21 07:48 Dose: Not Given Documented by: KAYLYN Non-Admin Reason: IV Running Labs CBC & Chem 7: 07/09/21 06:34 07/10/21 07:02 Labs: Laboratory Results - last 24 hr 07/09/21 07/09/21 07/09/21 11:47 18:41 23:23 Anion Gap Estim Creat Clear Calc Estimated GFR POC Glucose 224 H 289 H 225 H Random Glucose Calcium 07/10/21 07/10/21 07/10/21 00:32 07:02 07:42 Anion Gap 15 Estim Creat Clear Calc 56.1 Estimated GFR > 60 POC Glucose 219 H 27 L* Random Glucose 42 L* Calcium 8.9 07/10/21 09:33 Anion Gap Estim Creat Clear Calc Estimated GFR POC Glucose 188 H Random Glucose Calcium Assessment and Plan (1) Acute hyperglycemia: Status: Acute (2) Neuropathy: Status: Acute Assessment and Plan: hospital d#3 81yo M with uncontrolled DM2 non-adherent with insulin presented with unclear history of fall [pt states only had muscle cramps], polyuria, dysphagia, FTT; found by police living in [facility] admitted for renal insufficiency # VICKY - likely prerenal, resolved with isotonic IV fluid hydration # DM2, uncontrolled, hypoglycemic now - not in DKA but A1c >14 - hold Lantus for now, continue correction-dose Humalog # DM2 neuropathy - resumed gabapentin # balanitis - likely candidal due to hyperglycemia, treating with clotrimazole topical # possible dementia - HIV, RPR, B12; EEG; Neuro consulted # dysphagia - BUTTON RECLAIMER evaluation; GI consulted, to consider EGD # FTT - supplements # inadequate self-care - Case Mgmt consult - PT eval # VTE ppx - UFH Quality Stroke Does the patient have a stroke diagnosis?: No VTE Prior VTE?: No VTE Risk Level:: Medical - moderate - high VTE Device Contraindication: Treatment Not Indicated VTE Drug Contraindication: N/A - Med Ordered
--- NOTE | 2021-07-10 11:49 | MHC.SHP ---
Pre-Procedural Eval Section A Date of Service: 07/10/21 The patient is an INPATIENT: Yes Changes since office visit: No Cold of Flu in the past 2 weeks, No New Medical Problems, No Changes in Medication and No Patient answered all questions The History & Physical has been completed within 30 days and I have reviewed it.: Yes Section B Chief Complaint: Hyperglycemia Allergies: Allergies Allergy/AdvReac Type Severity Reaction Status Date / Time No Known Allergies Allergy Unverified 07/08/20 17:17 [No Known Allergies*] Plan I have reviewed the history and physical and performed a pertinent physical examination on my patient. No changes have occurred unless specified.
[2021-07-10 12:29] VITALS: BP 123/53; PULSE 58; RESP 18; TEMP 36.5; O2SAT 100
[2021-07-10 12:33] LABS: Glucose, Whole Blood 182 mg/dL (60-115)
--- NOTE | 2021-07-10 14:48 | PC.NURSE ---
call for report, rn to call back
[2021-07-10 16:27] LABS: Glucose, Whole Blood 131 mg/dL (60-115)
[2021-07-10 16:37] VITALS: BP 152/83; PULSE 57; RESP 18; TEMP 36.3; O2SAT 99
[2021-07-10] MEDS: 0.9 % Sodium Chloride Flush 3 ML SYRINGE IVFLUSH ×2 (16:38→21:06)
[2021-07-10 19:43] VITALS: BP 133/62; PULSE 63; RESP 18; TEMP 36.4; O2SAT 100
[2021-07-10] MEDS: Gabapentin 100 MG CAPSULE 200 MG PO (21:02)
[2021-07-10] MEDS: Famotidine/PF 20 MG/2 ML VIAL IVPUSH (21:03)
[2021-07-10 21:12] LABS: Glucose, Whole Blood 292 mg/dL (60-115)
[2021-07-10 23:34] VITALS: BP 107/55; PULSE 59; RESP 17; TEMP 36.8; O2SAT 100
[2021-07-11] VITALS (10 sets, daily range): BP systolic 91–136; BP diastolic 33–71; PULSE 54–75; RESP 16–18; TEMP 36.1–36.8; O2SAT 98–100; BMI 24.0
[2021-07-11 03:33] LABS: Syphilis Screen Nonreactive (Nonreactive)
[2021-07-11 03:51] LABS: Vitamin B12 1159 pg/mL (200-900)
[2021-07-11 03:55] LABS: HIV AB/AG Nonreactive (Nonreactive); HIV Num 1 0.05 S/CO (0.00-0.99)
[2021-07-11 07:53] LABS: Glucose, Whole Blood 157 mg/dL (60-115)
[2021-07-11 08:40] LABS: Glucose, Whole Blood 32 mg/dL (60-115)
--- NOTE | 2021-07-11 08:59 | HO.PM.IMPN ---
Subjective Subjective Date of Service: 07/11/21 Interval History: Pt interviewed in Bahraini and Armenian Quite irritable about being NPO Leave me alone , You're talking too much , You're full of shit Review of Systems Review of Systems: Yes Unobtainable due to mental status Physical Exam Vital Signs: Vital Signs: Last Vital Signs Temp 97.1 F 07/11/21 08:00 Pulse 60 07/11/21 08:00 Resp 18 07/11/21 08:00 BP 107/59 L 07/11/21 08:00 Pulse Ox 98 07/11/21 08:00 Body Mass Index 24.0 Gen: disheveled, bitemporal wasting HEENT: sclera anicteric, dry mucous membranes Neck: supple Lungs: clear to auscultation bilaterally Heart: regular without no murmurs Abd: soft, non-tender, non-distended Ext: no edema Skin: warm/well-perfused Neuro: unable to assess orientation Psych: restricted affect, impaired insight Objective Data Active Medications Acetaminophen (Acetaminophen 325 Mg Tablet) 650 mg PO Q6H PRN PRN Reason: Pain, Mild (Pain Scale 1-3) Clotrimazole (Clotrimazole 1 % Cream 15 Gm Tube) 1 appl TOPICAL BID [facility]; Protocol Last Admin: 07/10/21 22:46 Dose: Not Given Documented by: BERNABE Non-Admin Reason: unavailable Dextrose (Dextrose 50 % 25 Gm/50 Ml Vial) 25 gm IVPUSH Q15M PRN; Protocol PRN Reason: per Hypoglycemia Standing Ord. Last Admin: 07/10/21 07:46 Dose: 25 gm Documented by: KAYLYN Famotidine (Famotidine/Pf 20 Mg/2 Ml Vial) 20 mg IVPUSH BID [facility] Last Admin: 07/10/21 21:03 Dose: 20 mg Documented by: BERNABE Gabapentin (Gabapentin 100 Mg Capsule) 200 mg PO BEDTIME [facility] Last Admin: 07/10/21 21:02 Dose: 200 mg Documented by: BERNABE Glucose (Glucose Gel 15 Gm Gel..Gram.) 15 gm PO Q15M PRN; Protocol PRN Reason: per Hypoglycemia Standing Ord. Heparin Sodium (Porcine) (Heparin Sodium,Porcine 5,000 Unit/Ml Vial) 5,000 unit SUBCUT Q8H [facility] Last Admin: 07/10/21 16:21 Dose: Not Given Documented by: AMBAR Non-Admin Reason: NPO Insulin Human Lispro (Insulin Lispro 100 Unit/Ml 3 Ml Vial) 0 unit SUBCUT QIDACHS [facility]; Protocol Last Admin: 07/11/21 08:17 Dose: Not Given Documented by: ANASTASIA Non-Admin Reason: NPO Melatonin (Melatonin 3 Mg Tablet) 6 mg PO BEDTIME PRN PRN Reason: Insomnia Multivitamins/Vitamin C (Multivitamin Tablet) 1 tab PO DAILY [facility] Last Admin: 07/10/21 12:57 Dose: Not Given Documented by: KT Non-Admin Reason: Patient Refused Pharmacy Consult (Consult Rx Perform Med Rec) 1 each MISCELLANE ONCE PRN PRN Reason: Consult order Senna (Sennosides 8.6 Mg Tablet) 17.2 mg PO BEDTIME PRN PRN Reason: Constipation Sodium Chloride (0.9 % Sodium Chloride Flush 3 Ml Syringe) 3 ml IVFLUSH QSHIFT [facility] Last Admin: 07/10/21 21:06 Dose: 3 ml Documented by: BERNABE Labs CBC & Chem 7: 07/09/21 06:34 07/10/21 07:02 Labs: Laboratory Results - last 24 hr 07/09/21 07/10/21 07/10/21 07:05 07:02 07:02 POC Glucose Vitamin B12 1159 H Folate 11.0 T.pallidum Ab (EIA) Nonreactive HIV 1&2 Ab/P24 Ag 4thGn Nonreactive 07/10/21 07/10/21 07/10/21 07:42 07:42 09:33 POC Glucose 27 L* 32 L* 188 H Vitamin B12 Folate T.pallidum Ab (EIA) HIV 1&2 Ab/P24 Ag 4thGn 07/10/21 07/10/21 07/10/21 12:29 16:21 21:07 POC Glucose 182 H 131 H 292 H Vitamin B12 Folate T.pallidum Ab (EIA) HIV 1&2 Ab/P24 Ag 4thGn 07/11/21 07:18 POC Glucose 157 H Vitamin B12 Folate T.pallidum Ab (EIA) HIV 1&2 Ab/P24 Ag 4thGn Assessment and Plan (1) Acute hyperglycemia: Status: Acute (2) Neuropathy: Status: Acute Assessment and Plan: hospital d#4 81yo M with uncontrolled DM2 non-adherent with insulin presented with unclear history of fall [pt states only had muscle cramps], polyuria, dysphagia, FTT; found by police living in [facility] admitted for renal insufficiency not safe for discharge home # VICKY - likely prerenal, resolved with isotonic IV fluid hydration # DM2, uncontrolled but with hypoglycemic episode - on presentation, BG 629 but not in DKA; A1c >14 and pt has not been taking any insulin or OHGs - given hypoglycemia, hold Lantus for now; continue correction-dose Humalog # DM2 neuropathy - resumed low-dose gabapentin at bedtime # balanitis - likely candidal due to hyperglycemia, treating with clotrimazole topical d#12/26 # likely dementia - CT head: age-related prominence of the ventricles and extra-axial CSF spaces and mild nonspecific periventricular white matter disease. - HIV + TPPA negative - B12 normal - EEG as per Neuro - will contact family for further history # dysphagia - TIMBER SURVEYOR evaluation pending - GI consulted; EGD today # FTT - supplements # inadequate self-care - Case Mgmt consult - per PT, STR given weakness, deconditioning, and balance deficits # VTE ppx - UFH Quality Stroke Does the patient have a stroke diagnosis?: No VTE Prior VTE?: No VTE Risk Level:: Medical - moderate - high VTE Device Contraindication: Treatment Not Indicated VTE Drug Contraindication: N/A - Med Ordered
--- NOTE | 2021-07-11 09:59 | MHC.CM.PN ---
Dr Vergara feels she is still patient's pcp; however, patient had recent physical with Dr Ferguson. Case management office updated. patient tells this marketing copywriter that he feels better and wants to go home. Plan is EEG today. Patient also asking for coffee and has been made aware that he cannot have any until after his procedure. Case Management to attempt HCP if none can be found Patient does not want to sign his IMM. He does give permission for this marketing copywriter to leave it bedside with contact card. IMM 07/11 attempt copy in chart
[2021-07-11] MEDS: 0.9 % Sodium Chloride Flush 3 ML SYRINGE IVFLUSH ×2 (10:02→17:15)
--- NOTE | 2021-07-11 11:42 | MHC.CM.PN ---
FROM [facility], PATIENT'S SON SAMUEL CONTACT NUMBER IS [phone]. MESSAGE LEFT ON VOICEMAIL FOR A CALL BACK TO THIS SALES SUPPORT COORDINATOR. PATIENT'S SIGNIFICANT OTHER, GRAZYNA, CONTACT NUMBER IS [phone]. PATIENT'S VOICEMAIL HAS NOT BEEN SET UP. CASE MANAGEMENT TO CONTINUE TO FOLLOW, P.T. IS RECOMMENDING SHORT TERM REHAB.
--- NOTE | 2021-07-11 11:52 | MHC.SLORD ---
Speech Language Pathology Order Status: Order for bedside dysphagia evaluation received. CONSTRUCTION CONTRACTOR spoke with RN and MD this morning. Patient is NPO for EGD, which is scheduled for this afternoon. RN will text CONSTRUCTION CONTRACTOR via TIGER when patient has returned from EGD.
[2021-07-11 12:05] LABS: Glucose, Whole Blood 220 mg/dL (60-115)
--- NOTE | 2021-07-11 12:05 | MHC.CM.PN ---
CALL TO [facility] ([phone]) NO HCP IS ON FILE. STAFF MEMBER REPORTS THAT DR VERMA IS THE PCP. CASE MANAGEMENT OFFICE UPDATED VIA [employer].
--- NOTE | 2021-07-11 12:43 | MHC.CDI.CONC ---
CDI Concurrent Query Documentation Clarification: PHYSICIAN'S DOCUMENTATION REQUEST Date of Query: 07/11/21 1243 Patient Name: Eugene Delarosa Admit Date: 07/08/21 Dear Doctor, A review of the medical record indicates additional documentation may be needed. Please review below and update the documentation accordingly. Clinical Indicators: The following diagnoses or signs and symptoms were noted: Risk Factors/Clinical Indicators/Treatments Neurology notes a diagnosis of Dementia. Inability to care for himself, not paying rent, Failure to thrive, got upset with Doctor, You talk to much! Not cleaning himself or eating, malnourished. Which, if any, of the following is a likely etiology of the above abnormalities and treatment rendered: Dementia, Vascular, senile, with behavioral disturbances etc. Other etiology ? please specify Unable to determine Use of terms such as suspected, likely, concern for, or probable (associated with a specific diagnosis that is being evaluated, monitored, or treated as if it exists) are acceptable and can be coded in the inpatient setting, when documented at the time of discharge. Thank you, Munira Garay [facility], CDIS Extension: [phone] Please use your independent medical judgment in providing your response. THIS QUERY IS PART OF THE PERMANENT MEDICAL RECORD Provider Response: Other Other Diagnosis: possible dementia
[2021-07-11 13:35] LABS: Transferrin 145 mg/dL (188-341)
--- NOTE | 2021-07-11 14:11 | HO.ANESPROP2 ---
[facility] Active Problems Active Problems: All Active Problems (Updated 07/09/21 @ 22:44 by Beatriz Wilcox MD) Opportunistic fungus infection (Acute) Dementia (Acute) Acute hyperglycemia (Acute) Neuropathy (Acute) CKD (chronic kidney disease) (Acute) Past Medical History Medical History Opportunistic fungus infection Surgical History History of Problems with Anesthesia: No Social History Social History Household Members: None Housing: Apartment Do you presently have visiting nurse or other home services: Yes Patient Tobacco Use Status: Former Tobacco user Quit Date: 1999 Tobacco use type: Cigarette Years Smoked: 4 service: No Current occupational status: unemployed Meds Allergies Allergy/AdvReac Type Severity Reaction Status Date / Time No Known Allergies Allergy Unverified 07/08/20 17:17 [No Known Allergies*] Active Medications: Current Medications Acetaminophen (Acetaminophen 325 Mg Tablet) 650 mg PO Q6H PRN PRN Reason: Pain, Mild (Pain Scale 1-3) Clotrimazole (Clotrimazole 1 % Cream 15 Gm Tube) 1 appl TOPICAL BID [facility]; Protocol Last Admin: 07/11/21 10:02 Dose: Not Given Documented by: Dextrose (Dextrose 50 % 25 Gm/50 Ml Vial) 25 gm IVPUSH Q15M PRN; Protocol PRN Reason: per Hypoglycemia Standing Ord. Last Admin: 07/10/21 07:46 Dose: 25 gm Documented by: Famotidine (Famotidine/Pf 20 Mg/2 Ml Vial) 20 mg IVPUSH BID [facility] Last Admin: 07/11/21 10:04 Dose: Not Given Documented by: Gabapentin (Gabapentin 100 Mg Capsule) 200 mg PO BEDTIME [facility] Last Admin: 07/10/21 21:02 Dose: 200 mg Documented by: Glucose (Glucose Gel 15 Gm Gel..Gram.) 15 gm PO Q15M PRN; Protocol PRN Reason: per Hypoglycemia Standing Ord. Heparin Sodium (Porcine) (Heparin Sodium,Porcine 5,000 Unit/Ml Vial) 5,000 unit SUBCUT Q8H [facility] Last Admin: 07/10/21 16:21 Dose: Not Given Documented by: Insulin Human Lispro (Insulin Lispro 100 Unit/Ml 3 Ml Vial) 0 unit SUBCUT QIDACHS [facility]; Protocol Last Admin: 07/11/21 12:37 Dose: Not Given Documented by: Melatonin (Melatonin 3 Mg Tablet) 6 mg PO BEDTIME PRN PRN Reason: Insomnia Multivitamins/Vitamin C (Multivitamin Tablet) 1 tab PO DAILY [facility] Last Admin: 07/11/21 10:01 Dose: Not Given Documented by: Pharmacy Consult (Consult Rx Perform Med Rec) 1 each MISCELLANE ONCE PRN PRN Reason: Consult order Senna (Sennosides 8.6 Mg Tablet) 17.2 mg PO BEDTIME PRN PRN Reason: Constipation Sodium Chloride (0.9 % Sodium Chloride Flush 3 Ml Syringe) 3 ml IVFLUSH QSHIFT [facility] Last Admin: 07/11/21 10:02 Dose: 3 ml Documented by: Home Medications Medication Instructions Recorded Confirmed Last Taken Type gabapentin 100 mg capsule 2 cap PO BEDTIME 07/09/21 07/09/21 Unknown History insulin aspart U-100 100 unit/mL 4 unit SUBCUT QIDACHS 07/09/21 07/09/21 Unknown History (3 mL) subcutaneous pen (Novolog Flexpen U-100 Insulin aspart) insulin detemir U-100 100 unit/mL 50 unit SUBCUT QPM 07/09/21 07/09/21 Unknown History (3 mL) subcutaneous pen (Levemir FlexTouch U-100 Insulin) Exam Exam Date and Time: July 11, 2021 1411 Height,Weight and Vital Signs: Height 5 ft 4 in Weight 63.5 kg Last Vital Signs Temp 97 F 07/11/21 11:47 Pulse 59 07/11/21 13:32 Resp 18 07/11/21 11:47 BP 98/58 L 07/11/21 13:32 Pulse Ox 100 07/11/21 13:32 Pertinent Lab Results Pertinent Lab Results: Laboratory Tests 07/08/21 07/08/21 07/08/21 18:46 18:46 20:43 WBC 6.8 RBC 4.18 L Hgb 13.4 L Hct 38.3 L MCV 91.6 MCH 32.1 MCHC 35.0 RDW 12.7 Plt Count 195 MPV 11.6 Immature Gran % (Auto) 0.4 Neut % (Auto) 61.2 Lymph % (Auto) 30.0 [place] % (Auto) 7.7 Eos % (Auto) 0.6 Baso % (Auto) 0.1 Lymph # (Auto) 2.0 [place] # (Auto) 0.5 Eos # (Auto) 0.0 Baso # (Auto) 0.0 Abs Immat Gran (auto) 0.03 Absolute Neuts (auto) 4.1 Absolute Nucleated RBC 0.000 Nucleated RBC % (auto) 0.0 Sodium 132 L Potassium 4.8 Chloride 96 Carbon Dioxide 24 Anion Gap 17 BUN 19 H Creatinine 1.41 H Estim Creat Clear Calc 33.8 Estimated GFR 48 POC Glucose Random Glucose 629 H* Estimat Average Glucose Hemoglobin A1c % Calcium 9.1 Transferrin Total Bilirubin Direct Bilirubin AST ALT Alkaline Phosphatase Total Creatine Kinase 41 Troponin I High Sens B-Natriuretic Peptide Total Protein Albumin Vitamin B12 Folate TSH Urine Color STRAW Urine Appearance CLEAR Urine pH 6.0 Ur Specific [place] <= 1.005 Urine Protein NEG Urine Glucose (UA) >=1000 H Urine Ketones 15 Urine Blood NEG Urine Nitrite NEG Ur Leukocyte Esterase NEG Urine RBC 0-2 Urine WBC 0 Ur Squamous Epith Cells NONE Urine Bacteria NONE Acetone, Qual Negative T.pallidum Ab (EIA) COVID-19 (KELLIE) COVID-19 Clin Com HIV 1&2 Ab/P24 Ag 4thGn 07/08/21 07/08/21 07/08/21 20:43 21:49 23:31 WBC RBC Hgb Hct MCV MCH MCHC RDW Plt Count MPV Immature Gran % (Auto) Neut % (Auto) Lymph % (Auto) [place] % (Auto) Eos % (Auto) Baso % (Auto) Lymph # (Auto) [place] # (Auto) Eos # (Auto) Baso # (Auto) Abs Immat Gran (auto) Absolute Neuts (auto) Absolute Nucleated RBC Nucleated RBC % (auto) Sodium Potassium Chloride Carbon Dioxide Anion Gap BUN Creatinine Estim Creat Clear Calc Estimated GFR POC Glucose 493 H* Random Glucose Estimat Average Glucose Hemoglobin A1c % Calcium Transferrin Total Bilirubin Direct Bilirubin AST ALT Alkaline Phosphatase Total Creatine Kinase Troponin I High Sens 5.6 B-Natriuretic Peptide 168 H Total Protein Albumin Vitamin B12 Folate TSH Urine Color Urine Appearance Urine pH Ur Specific [place] Urine Protein Urine Glucose (UA) Urine Ketones Urine Blood Urine Nitrite Ur Leukocyte Esterase Urine RBC Urine WBC Ur Squamous Epith Cells Urine Bacteria Acetone, Qual T.pallidum Ab (EIA) COVID-19 (KELLIE) Negative COVID-[facility] Clin Com See Note HIV 1&2 Ab/P24 Ag 4thGn 07/09/21 07/09/21 07/09/21 01:37 06:34 06:34 WBC 6.6 RBC 3.81 L Hgb 12.2 L Hct 34.8 L MCV 91.3 MCH 32.0 MCHC 35.1 RDW 12.6 Plt Count 184 MPV 11.7 Immature Gran % (Auto) 0.5 H Neut % (Auto) 51.8 Lymph % (Auto) 38.4 [place] % (Auto) 8.5 Eos % (Auto) 0.6 Baso % (Auto) 0.2 Lymph # (Auto) 2.5 [place] # (Auto) 0.6 Eos # (Auto) 0.0 Baso # (Auto) 0.0 Abs Immat Gran (auto) 0.03 Absolute Neuts (auto) 3.4 Absolute Nucleated RBC 0.000 Nucleated RBC % (auto) 0.0 Sodium 138 Potassium 3.7 D Chloride 103 Carbon Dioxide 28 Anion Gap 11 L BUN 16 Creatinine 1.11 Estim Creat Clear Calc 42.9 Estimated GFR > 60 POC Glucose 367 H* Random Glucose 443 H* Estimat Average Glucose Hemoglobin A1c % Calcium 9.0 Transferrin Total Bilirubin 0.5 Direct Bilirubin 0.2 AST 12 ALT 16 Alkaline Phosphatase 67 Total Creatine Kinase Troponin I High Sens B-Natriuretic Peptide Total Protein 5.6 L Albumin 3.4 L Vitamin B12 Folate TSH 2.21 Urine Color Urine Appearance Urine pH Ur Specific [place] Urine Protein Urine Glucose (UA) Urine Ketones Urine Blood Urine Nitrite Ur Leukocyte Esterase Urine RBC Urine WBC Ur Squamous Epith Cells Urine Bacteria Acetone, Qual T.pallidum Ab (EIA) COVID-19 ([facility]) COVID-19 Clin Com HIV 1&2 Ab/P24 Ag 4thGn 07/09/21 07/09/21 07/09/21 07:05 07:05 07:05 WBC RBC Hgb Hct MCV MCH MCHC RDW Plt Count MPV Immature Gran % (Auto) Neut % (Auto) Lymph % (Auto) [place] % (Auto) Eos % (Auto) Baso % (Auto) Lymph # (Auto) [place] # (Auto) Eos # (Auto) Baso # (Auto) Abs Immat Gran (auto) Absolute Neuts (auto) Absolute Nucleated RBC Nucleated RBC % (auto) Sodium Potassium Chloride Carbon Dioxide Anion Gap BUN Creatinine Estim Creat Clear Calc Estimated GFR POC Glucose Random Glucose Estimat Average Glucose TNP Hemoglobin A1c % > 14.0 Calcium Transferrin 145 L Total Bilirubin Direct Bilirubin AST ALT Alkaline Phosphatase Total Creatine Kinase Troponin I High Sens B-Natriuretic Peptide Total Protein Albumin Vitamin B12 1159 H Folate 11.0 TSH Urine Color Urine Appearance Urine pH Ur Specific [place] Urine Protein Urine Glucose (UA) Urine Ketones Urine Blood Urine Nitrite Ur Leukocyte Esterase Urine RBC Urine WBC Ur Squamous Epith Cells Urine Bacteria Acetone, Qual T.pallidum Ab (EIA) COVID-19 ([facility]LLIE) COVID-19 Clin Com HIV 1&2 Ab/P24 Ag 4thGn 07/09/21 07/09/21 07/09/21 07:37 11:47 18:41 WBC RBC Hgb Hct MCV MCH MCHC RDW Plt Count MPV Immature Gran % (Auto) Neut % (Auto) Lymph % (Auto) [place] % (Auto) Eos % (Auto) Baso % (Auto) Lymph # (Auto) [place] # (Auto) Eos # (Auto) Baso # (Auto) Abs Immat Gran (auto) Absolute Neuts (auto) Absolute Nucleated RBC Nucleated RBC % (auto) Sodium Potassium Chloride Carbon Dioxide Anion Gap BUN Creatinine Estim Creat Clear Calc Estimated GFR POC Glucose 307 H 224 H 289 H Random Glucose Estimat Average Glucose Hemoglobin A1c % Calcium Transferrin Total Bilirubin Direct Bilirubin AST ALT Alkaline Phosphatase Total Creatine Kinase Troponin I High Sens B-Natriuretic Peptide Total Protein Albumin Vitamin B12 Folate TSH Urine Color Urine Appearance Urine pH Ur Specific [place] Urine Protein Urine Glucose (UA) Urine Ketones Urine Blood Urine Nitrite Ur Leukocyte Esterase Urine RBC Urine WBC Ur Squamous Epith Cells Urine Bacteria Acetone, Qual T.pallidum Ab (EIA) COVID-19 ([facility]) COVID-19 Clin Com HIV 1&2 Ab/P24 Ag 4thGn 07/09/21 07/10/21 07/10/21 23:23 00:32 07:02 WBC RBC Hgb Hct MCV MCH MCHC RDW Plt Count MPV Immature Gran % (Auto) Neut % (Auto) Lymph % (Auto) [place] % (Auto) Eos % (Auto) Baso % (Auto) Lymph # (Auto) [place] # (Auto) Eos # (Auto) Baso # (Auto) Abs Immat Gran (auto) Absolute Neuts (auto) Absolute Nucleated RBC Nucleated RBC % (auto) Sodium Potassium Chloride Carbon Dioxide Anion Gap BUN Creatinine Estim Creat Clear Calc Estimated GFR POC Glucose 225 H 219 H Random Glucose Estimat Average Glucose Hemoglobin A1c % Calcium Transferrin Total Bilirubin Direct Bilirubin AST ALT Alkaline Phosphatase Total Creatine Kinase Troponin I High Sens B-Natriuretic Peptide Total Protein Albumin Vitamin B12 Folate TSH Urine Color Urine Appearance Urine pH Ur Specific [place] Urine Protein Urine Glucose (UA) Urine Ketones Urine Blood Urine Nitrite Ur Leukocyte Esterase Urine RBC Urine WBC Ur Squamous Epith Cells Urine Bacteria Acetone, Qual T.pallidum Ab (EIA) Nonreactive COVID-19 ([facility]LLIE) COVID-19 Clin Com HIV 1&2 Ab/P24 Ag 4thGn 07/10/21 07/10/21 07/10/21 07:02 07:02 07:42 WBC RBC Hgb Hct MCV MCH MCHC RDW Plt Count MPV Immature Gran % (Auto) Neut % (Auto) Lymph % (Auto) [place] % (Auto) Eos % (Auto) Baso % (Auto) Lymph # (Auto) [place] # (Auto) Eos # (Auto) Baso # (Auto) Abs Immat Gran (auto) Absolute Neuts (auto) Absolute Nucleated RBC Nucleated RBC % (auto) Sodium 139 Potassium 3.7 Chloride 108 Carbon Dioxide 20 L Anion Gap 15 BUN 13 Creatinine 0.85 Estim Creat Clear Calc 56.1 Estimated GFR > 60 POC Glucose 27 L* Random Glucose 42 L* Estimat Average Glucose Hemoglobin A1c % Calcium 8.9 Transferrin Total Bilirubin Direct Bilirubin AST ALT Alkaline Phosphatase Total Creatine Kinase Troponin I High Sens B-Natriuretic Peptide Total Protein Albumin Vitamin B12 Folate TSH Urine Color Urine Appearance Urine pH Ur Specific [place] Urine Protein Urine Glucose (UA) Urine Ketones Urine Blood Urine Nitrite Ur Leukocyte Esterase Urine RBC Urine WBC Ur Squamous Epith Cells Urine Bacteria Acetone, Qual T.pallidum Ab (EIA) COVID-19 ([facility]LLIE) COVID-19 Clin Com HIV 1&2 Ab/P24 Ag 4thGn Nonreactive 07/10/21 07/10/21 07/10/21 07:42 09:33 12:29 WBC RBC Hgb Hct MCV MCH MCHC RDW Plt Count MPV Immature Gran % (Auto) Neut % (Auto) Lymph % (Auto) [place] % (Auto) Eos % (Auto) Baso % (Auto) Lymph # (Auto) [place] # (Auto) Eos # (Auto) Baso # (Auto) Abs Immat Gran (auto) Absolute Neuts (auto) Absolute Nucleated RBC Nucleated RBC % (auto) Sodium Potassium Chloride Carbon Dioxide Anion Gap BUN Creatinine Estim Creat Clear Calc Estimated GFR POC Glucose 32 L* 188 H 182 H Random Glucose Estimat Average Glucose Hemoglobin A1c % Calcium Transferrin Total Bilirubin Direct Bilirubin AST ALT Alkaline Phosphatase Total Creatine Kinase Troponin I High Sens B-Natriuretic Peptide Total Protein Albumin Vitamin B12 Folate TSH Urine Color Urine Appearance Urine pH Ur Specific [place] Urine Protein Urine Glucose (UA) Urine Ketones Urine Blood Urine Nitrite Ur Leukocyte Esterase Urine RBC Urine WBC Ur Squamous Epith Cells Urine Bacteria Acetone, Qual T.pallidum Ab (EIA) COVID-19 ([facility]LLIE) COVID-19 Clin Com HIV 1&2 Ab/P24 Ag 4thGn 07/10/21 07/10/21 07/11/21 16:21 21:07 07:18 WBC RBC Hgb Hct MCV MCH MCHC RDW Plt Count MPV Immature Gran % (Auto) Neut % (Auto) Lymph % (Auto) [place] % (Auto) Eos % (Auto) Baso % (Auto) Lymph # (Auto) [place] # (Auto) Eos # (Auto) Baso # (Auto) Abs Immat Gran (auto) Absolute Neuts (auto) Absolute Nucleated RBC Nucleated RBC % (auto) Sodium Potassium Chloride Carbon Dioxide Anion Gap BUN Creatinine Estim Creat Clear Calc Estimated GFR POC Glucose 131 H 292 H 157 H Random Glucose Estimat Average Glucose Hemoglobin A1c % Calcium Transferrin Total Bilirubin Direct Bilirubin AST ALT Alkaline Phosphatase Total Creatine Kinase Troponin I High Sens B-Natriuretic Peptide Total Protein Albumin Vitamin B12 Folate TSH Urine Color Urine Appearance Urine pH Ur Specific [place] Urine Protein Urine Glucose (UA) Urine Ketones Urine Blood Urine Nitrite Ur Leukocyte Esterase Urine RBC Urine WBC Ur Squamous Epith Cells Urine Bacteria Acetone, Qual T.pallidum Ab (EIA) COVID-19 ([facility]IE) COVID-19 Clin Com HIV 1&2 Ab/P24 Ag 4thGn 07/11/21 11:46 WBC RBC Hgb Hct MCV MCH MCHC RDW Plt Count MPV Immature Gran % (Auto) Neut % (Auto) Lymph % (Auto) [place] % (Auto) Eos % (Auto) Baso % (Auto) Lymph # (Auto) [place] # (Auto) Eos # (Auto) Baso # (Auto) Abs Immat Gran (auto) Absolute Neuts (auto) Absolute Nucleated RBC Nucleated RBC % (auto) Sodium Potassium Chloride Carbon Dioxide Anion Gap BUN Creatinine Estim Creat Clear Calc Estimated GFR POC Glucose 220 H Random Glucose Estimat Average Glucose Hemoglobin A1c % Calcium Transferrin Total Bilirubin Direct Bilirubin AST ALT Alkaline Phosphatase Total Creatine Kinase Troponin I High Sens B-Natriuretic Peptide Total Protein Albumin Vitamin B12 Folate TSH Urine Color Urine Appearance Urine pH Ur Specific [place] Urine Protein Urine Glucose (UA) Urine Ketones Urine Blood Urine Nitrite Ur Leukocyte Esterase Urine RBC Urine WBC Ur Squamous Epith Cells Urine Bacteria Acetone, Qual T.pallidum Ab (EIA) COVID-19 ([facility]) COVID-19 Clin Com HIV 1&2 Ab/P24 Ag 4thGn Airway Mallampati Class: II TM Dist: >3cm Neck ROM: Full Loose/Missing/Broken Teeth: Yes, Upper and Lower Heart: RRR Lungs: CTA Assessment and Plan Assessment Anesthesia Assessment: Anesthesia Plan Discussed and Chart Reviewed Final Anesthetic Review History of Problems with Anesthesia: No NPO: Yes ASA Class: III Final Preanesthetic Review: Meds/Allgs Chart Reviewed, Consent Obtained/Reviewed and Anes Risks/Benef Reviewed Patient Risk: Intermediate Procedure Risk: Intermediate Anesthetic Plan Anesthetic Plan: MAC: Disposition: Standard PACU
[2021-07-11 14:26] LABS: Glucose, Whole Blood 165 mg/dL (60-115)
--- NOTE | 2021-07-11 14:44 | P.BOP_ITS ---
Brief Operative Note Date of Service: 07/11/21 Pre-op diagnosis: dysphagia, epigastric pain Post-op diagnosis: same (gastritis) Surgeon: Dexter Rosario Anesthesia: MAC Was an Experimental Mechanic [employer] used for this Procedure?: No Estimated blood loss (mL): 2 Pathology: other (antral, esophageal biopsies) Condition: stable Disposition: PACU
--- NOTE | 2021-07-11 14:45 | PM.EVENT ---
Event Note Date of Service: 07/11/21 Event Note: EGD note dictated EGD shows gastritis, no stricture or mass biopsies taken rec: oral ppi advance diet f/u biopsy results
--- NOTE | 2021-07-11 16:25 | MHC.CLN ---
NUTRITION CONSULT DIET=DIABETIC 2000 KCAL. ADD GLUCERNA 240 ML BID (474 KCAL, 20 G PROTEIN). PER FAMILY, PATIENT MOSTLY EATS RAMEN NOODLES AND BREAD. 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 SEE CLINICAL NUTRITION ASSESSMENT.
[2021-07-11 16:44] LABS: Glucose, Whole Blood 208 mg/dL (60-115)
[2021-07-11] MEDS: Lactated Ringers 1,000 ML 50 ML IVCONT (17:10)
[2021-07-11] MEDS: Insulin Lispro 100 UNIT/ML 3 ML VIAL SUBCUT ×2 (17:14→21:05)
[2021-07-11] MEDS: Omeprazole 20 MG CAPSULE.DR PO (17:15)
--- NOTE | 2021-07-11 17:33 | MHC.SL.SWA ---
Speech Pathologist Impression: Risk of Aspiration Oralpharyngeal Dysphagia Risk of Aspiration Due to: Reduced Cognition Dysphasia Diet Status: Upgrade Liquid Consistency and Strategies for Safe Swallow: Liquid Intake Recommendation: Thin Liquid Intake Strategies: Small Sips No Straws Solid Food Consistency: Dietary Recommendations: Chopped/Advanced (NDD3) Additional Modifications to Solid Foods: Patient is edentulous and does not have his dentures here with him in the hospital. Patient is able to mash food without his dentures. To ease mastication, recommend CHOPPED/ADVANCED (NDD3) solids and THIN liquids, with pills WHOLE in LIQUID. Patient feeds himself, but is recommended intermittent supervision to ensure strategies: LIQUID WASH/ DOUBLE SWALLOW to clear oral residue. Recommend AVOID tough, difficult to chew foods and dry/sticky foods. Moisten and soften food with sauce/gravy. Recommend aspiration precautions. No overt s/s of aspiration, but patient reports globus sensation with both solids and liquids. Patient may benefit from MBSS during inpatient stay or outpatient. COMPOUNDER HELPER will continue to follow. Oral Medication Intake: Whole with Liquid Compensatory Strategies and Precautions to be Taken for Safe Swallow: Sitting Upright (90 deg) No Straw Small Bites and Sips Alternate Liquids/Solids Rate of Ingestion Change Avoid Specific Foods Supervision While Eating and Drinking for Safe Swallow: Intermittent Supervision Foods to Avoid: tough, sticky, dry, difficult to chew foods Swallowing Recommended Treatments: Compens. Strategy Educat. Recommendation for Speech: Inpatient Speech Therapy Modified Barium Swallow Study - Inpatient Modified Barium Swallow Study - Outpatient Comment: Patient is edentulous and does not have his dentures here with him in the hospital. Patient is able to mash food without his dentures. To ease mastication, recommend CHOPPED/ADVANCED (NDD3) solids and THIN liquids, with pills WHOLE in LIQUID. Patient feeds himself, but is recommended intermittent supervision to ensure strategies: LIQUID WASH/ DOUBLE SWALLOW to clear oral residue. Recommend AVOID tough, difficult to chew foods and dry/sticky foods. Moisten and soften food with sauce/gravy. Recommend aspiration precautions. No overt s/s of aspiration, but patient reports globus sensation with both solids and liquids. Patient may benefit from MBSS during inpatient stay or outpatient. COMPOUNDER HELPER will continue to follow. Utility Worker Clinican/Clinical Fellow: No Supervisory Statement: I have reviewed and agree with the student/clinical fellow's documentation: N/A Speech Language Pathologist: Mariah Cam M.A., [facility]-COMPOUNDER HELPER
[2021-07-11 20:51] LABS: Glucose, Whole Blood 336 mg/dL (60-115)
[2021-07-11] MEDS: Heparin Sodium,Porcine 5,000 UNIT/ML VIAL 5000 UNIT SUBCUT (21:05)
[2021-07-11] MEDS: Gabapentin 100 MG CAPSULE 200 MG PO (21:06)
[2021-07-12] VITALS (7 sets, daily range): BP systolic 109–155; BP diastolic 55–71; PULSE 58–103; RESP 16–19; TEMP 36.5–36.6; O2SAT 95–100
--- NOTE | 2021-07-12 00:28 | OP_ITS ---
SURGEON: Dexter Rosario MD INDICATIONS: Dysphagia and epigastric pain. PREOPERATIVE DIAGNOSIS: POSTOPERATIVE DIAGNOSIS: PROCEDURE PERFORMED: Upper endoscopy with biopsy. ESTIMATED BLOOD LOSS: COMPLICATIONS: ANESTHESIA: ASSISTANTS: SPECIMENS: MEDICATIONS: Monitored anesthesia care. DESCRIPTION OF PROCEDURE: History and physical performed. The risks and benefits of the procedure were explained to the patient. Informed consent was obtained. The patient was placed in the left lateral decubitus position. The Olympus video gastroscope was introduced into the esophagus, stomach, and duodenum. Examination was performed and the scope was removed. He tolerated the procedure well and was taken to recovery area in stable condition. FINDINGS: Esophagus: The esophagus was normal. There was no stricture or mass. There were a few whitish plaques in the distal esophagus. There was no esophagitis. Biopsies were obtained at 37 cm. Stomach: The stomach showed gastritis with diffuse erythema scattered throughout. No ulceration was identified. Duodenum: The bulb and second portion were normal. Antral biopsies were obtained to rule out H pylori. IMPRESSION: Gastritis. RECOMMENDATION: Follow up the biopsy results. MD DIPESH Sawant/MODL / [id number]
[2021-07-12] MEDS: Omeprazole 20 MG CAPSULE.DR PO ×2 (05:20→15:11)
[2021-07-12] MEDS: Heparin Sodium,Porcine 5,000 UNIT/ML VIAL 5000 UNIT SUBCUT ×2 (06:34→15:11)
[2021-07-12] MEDS: Insulin Lispro 100 UNIT/ML 3 ML VIAL SUBCUT ×4 (07:45→20:52)
[2021-07-12] MEDS: Multivitamin TABLET 1 TAB PO (07:46)
[2021-07-12 08:15] LABS: Glucose, Whole Blood 245 mg/dL (60-115)
--- NOTE | 2021-07-12 08:51 | MHC.CM.PN ---
SECOND MESSAGE LEFT ON [employer], [employer] AT [phone]. REQUEST FOR CALL BACK TO THIS SURGICAL SERVICES TECH. 2 CONTACT NUMBERS LEFT ON [employer].
--- NOTE | 2021-07-12 09:19 | MHC.CM.PN ---
CALL FROM SON, SAMUEL. 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 HE WILL BE HERE TODAY TO ANSWER QUESTIONS AND ATTEMPT TO HCP DESIGNATION. ACCORDING TO SAMUEL, PATIENT LIVES ALONE. SAMUEL TRIES TO HELP MUCH POSSIBLE, BUT IS NOT ABLE TO BE THERE DAILY HE FEELS PATIENT WOULD BENEFIT FROM SHORT TERM REHAB AND HOPES FOR [facility] REFERRALS. CASE MANAGEMENT TO FOLLOW UP WITH PREFERENCES FROM PATIENT AND SON WHEN HE ARRIVES. PATIENT HAS NOT BEEN VACCINATED AGAINST COVID19.
--- NOTE | 2021-07-12 09:48 | MHC.CM.PN ---
CALL FROM ANGE OF [facility] ([phone]) ANGE STATES THAT PRE-OP PAPERWORK WAS SENT TO THEM FOR SERVICES POST ACUTE CARE STAY. JUAN MADE AWARE. DC PAPERWORK TO BE FAXED TO [place] AT [phone]
--- NOTE | 2021-07-12 10:34 | MHC.SLORD ---
Speech Language Pathology Order Status: MBSS scheduled for 1:30pm today.
--- NOTE | 2021-07-12 10:42 | HO.POSTANES ---
Post Anesthesia Evaluation Post Anesthesia Evaluation Vital Signs: Vital Signs Temp Pulse Resp BP Pulse Ox 07/12/21 09:40 58 127/63 97 07/12/21 08:00 97.8 F 58 18 127/63 97 07/12/21 04:00 98 F 63 17 109/55 L 98 07/12/21 00:00 97.7 F 68 16 109/58 L 100 Anesthesia: Monitored Mental Status: Awake Pain Control: Satisfactory Nausea/Vomiting: None Hydration: Adequate Anesthesia-Related Issues: No Anes. Related Issues
--- NOTE | 2021-07-12 11:06 | MHC.CM.PN ---
THIS [place] DRIVER MET [facility] PATIENT TO DISCUSS HCP DOCUMENT. WHEN ASKED IF THERE IS ANY PERSON IN HIS LIFE THAT HE TRUSTS, PATIENT SHRUGS HIS SHOULDERS, AND REPLIES NOT FOR EVERYTHING WHEN ASKED IF PATIENT TRUSTS HIS SON, SAMUEL, PATIENT REPLIES WELL, HE IS MY SON, YOU KNOW?' WHEN ASKED IF HOSPITAL STAFF CAN SPEAK WITH SAMUEL ABOUT HIS CARE AND SICHARGE CONCERNS, PATIENT AGREES. PATIENT IS NOW AWARE THAT SAMUEL CALLED THIS [place] DRIVER TODAY AND PLANS TO BE HERE TODAY. PATIENT ASKED WHAT TIME SAMUEL WOULD BE IN, AND HE NOW KNOWS THAT SAMUEL PLANS ON ARRIVING BY 1230. PATIENT AGREES TO ASSIGN SAMUEL HCP AGENT. WHEN ASKED IF PATIENT WOULD LIKE TO ADD ANOTHER AGENT, HE DENIES. WHEN ASKED IF PATIENT WOULD LIKE G[facility]ZYNA (SIGNIFICANT OTHER) TO DOCUMENTATION, HE DENIES, STATING ONLY SAMUEL COMPLETED DOCUMENT UPLOADED INTO [employer]. COPY IN CHART. ORIGINAL LEFT IN ROOM WITH PATIENT. CURRENTLY [facility] AND [facility] ARE FOLLOWING AND AWARE THAT PATIENT IS NOT VACCINATED AGAINST COVID-19. [facility] IS ASKING FOR MORE INFORMATION. PLAN IS FOR BARIUM SWALLOW TODAY AND POSSIBLE DC LATER IN AFTERNOON IF ABLE TO DISCHARGE. PLAN WILL STILL NEED TO BE MADE AND AGREED UPON WITH SON AND PATIENT.
--- NOTE | 2021-07-12 11:51 | PC.NURSE ---
Skin assessment completed. Patient has redness to tip and base of penis. EPC cream applied until redness subsides. No other skin issues noted at this time.
[2021-07-12 12:28] LABS: Glucose, Whole Blood 309 mg/dL (60-115)
--- NOTE | 2021-07-12 12:37 | MHC.CM.PN ---
THIS COLLECTION ANALYST MET WITH SON AND PATIENT (WITH PERMISSION) PATIENT IS AGREEABLE TO REHAB AND CHOOSES [facility]. [facility] AWARE. CASE MANAGEMENT FOLLOWING FOR DC PLAN
[2021-07-12] MEDS: Lactated Ringers 1,000 ML 50 ML IVCONT (13:18)
--- NOTE | 2021-07-12 13:39 | P.DS_ITS ---
DS: Providers Provider Date of Service: 07/12/21 Date of admission: 07/08/21 22:46 Date of discharge: 07/12/21 Primary care physician: Jailyn Vergara MD Consults: 07/08/21 22:44 Consult to Gastroenterology Routine Consulting Provider: Concepcion Maria Reason for consultation: dysphagia; ?EGD Consult to Infectious Diseases Routine Consulting Provider: Beatriz Wilcox Reason for consultation: ?penil fungal infection 07/08/21 22:49 Consult to Neurology Routine Consulting Provider: [facility] Reason for consultation: b/l leg weakness/numbness;rec falls DS: Diagnosis Discharge Diagnosis (1) Acute hyperglycemia: Status: Acute (2) Neuropathy: Status: Acute DS: Summary Hospital Course Hospital Course: 81-year-old male with a past medical history of diabetes-not taking any anti diabetics at home;? presented to the hospital with a chief complaint fall. Patient is Upper Sorbian-speaking, spoke to the patient along with the waiter/waitress informal. Reportedly patient has not been paying rent and landed on send somebody for wellness check noted that patient was very dishevelled and unkept; subsequently police brought him to the ER for further evaluation. Patient reports that does not take any medications at home.? Denies any toxic habits.? Mentions that walks around the house okay but uses a cane.? But he numbness in his bilateral feet unable to the bottom; had multiple falls. Denies any head strike or loss of consciousness.? Denies any seizure-like activity.? Denies any chest pain palpitations lightheadedness or dizziness. Reports he is unsteady on his gait; denies any hip pain pain or back pain. Mentions that he does not go out much; usually eats soup and bread. Patient reports that whenever he eats he has a feeling of food stuck in his throat; also has burning sensation radiating up from his epigastrium into the throat; Complains of urinary frequency. Review of all other systems is negative except mentioned above ER course:? For ER team patient on presentation noted to be uncapped; labs noted to elevated creatinine of 1.4-unknown baseline; elevated fingerstick glucose in 600; given regular insulin; IV fluids; when tried to obtain urine ER team noticed concerns for possible penile fungal infection versus smegma.? Placed nystatin powder. Admitted to the hospital for further management. Hospital course: 1.Patient came with the hospital because uncontrolled diabetes mellitus, VICKY, balanitis, likely has dementia, taking very poor care of himself: Subsequently patient was managed with hydration, insulin, balanitis case given clotrimazole: Fingersticks seems to be improving but have invariably hypoglycemic . given hypoglycemia, hold Lantus for now; continue correction-dose Humalog, Started on fingersticks with sliding scale coverage please avoid coverage below 200 mg/ dL.A1c >14 Hold Levemir for now-slowly introduced at lower dose in rehab if fingersticks are remain above 200 mg/dL. Further management outpatient as per rehab. DM2 neuropathy- resumed low-dose gabapentin at bedtime 2. balanitis- likely candidal due to hyperglycemia, treating with clotrimazole topical d#3 3. likely dementia - CT head: age-related prominence of the ventricles and extra-axial CSF spaces and mild nonspecific periventricular white matter disease. - HIV + TPPA negative - B12 normal - EEG as per Neuro outpatiently. 4. dysphagia: - GI consulted; EGD today-gastritis, biopsy pending [employer]-continue chopped diabetic diet, Ensure b.i.d. Modified barium swallow seems fine as per speech. outpatient GI follow up. 5. FTT- supplements ensure/ Above management discussed with the patient and his son Mr Archer in detail length -they both understand and in agreement with the above plan, time spent 50 minutes and 50% time spent on counseling. Significant findings: As above. Procedures performed: None. Treatment and response: As above. Complications: None. Time Spent with Patient Time attestation: Total time spent providing and/or coordinating discharge services: Discharge coordination time: Greater than 30 minutes Quality: Stroke Does the patient have a stroke diagnosis?: No Physical Exam Vital Signs: Vital Signs: Last Vital Signs Temp 97.8 F 07/12/21 11:29 Pulse 103 H 07/12/21 11:29 Resp 18 07/12/21 11:29 BP 110/65 07/12/21 11:29 Pulse Ox 95 07/12/21 11:29 Body Mass Index 24.0 Gen: disheveled, bitemporal wasting HEENT: sclera anicteric, dry mucous membranes Neck: supple Lungs: clear to auscultation bilaterally Heart: regular without no murmurs Abd: soft, non-tender, non-distended Ext: no edema Skin: warm/well-perfused Neuro: unable to assess orientation Psych: restricted affect, impaired insight DS: Data Data Completed and Pending Pending studies at discharge: Pending at discharge 07/11/21 14:37 Surgical [PTH] Routine Labs on day of discharge: Laboratory Results - last 24 hr 07/11/21 07/11/21 07/11/21 14:10 16:41 20:46 POC Glucose 165 H 208 H 336 H 07/12/21 07/12/21 07:23 11:25 POC Glucose 245 H 309 H Discharge Plan Discharge Patient Disposition: Xfer SNF Discharge Diagnosis: ftt,dm , vicky, balanitis,probable dementia Referrals: [facility] [Outside] - 1 Week Jailyn Vergara MD [Primary Care Provider] - 1 Week Discharge Medications: New multivitamin [Daily-Sri] Tablet 1 tab PO DAILY Qty: 30 RF: 0 clotrimazole 1 % Cream 1 appl topical BID Qty: 45 RF: 0 dextrose [Glutose-15] 40 % Gel 15 g PO Q15M PRN (Reason: Per Hypoglycemia Standing Ord.) Qty: 37.5 RF: 0 omeprazole 20 mg Capsule,Delayed Release(Dr/Ec) 20 mg PO BID@0630,1630 Qty: 60 RF: 0 insulin lispro [Humalog U-100 Insulin] 100 unit/mL Solution See Protocol unit subcut QIDACHS Qty: 10 RF: 0 Continued gabapentin 100 mg capsule 2 cap PO BEDTIME RF: 0 Held Levemir FlexTouch U-100 Insuln 100 unit/mL (3 mL) insulin pen 50 unit subcut QPM RF: 0 Hold Instructions: Resume on 07/18/21. hold due to hypoglycemia episodes, slowly introduce in next few days if fingersticks the remain uncontrolled above 200 mg/dL, start on a lower dose of Levemir as per rehab. Discontinued insulin aspart U-100 [Novolog Flexpen U-100 Insulin] 100 unit/mL (3 mL) insulin pen 4 unit subcut QIDACHS RF: 0 Discharge Orders: Discharge Order (Routine); Ordered 07/12/21 Ordered By: Bibi Meneses Diet: advance to usual diet, diabetic diet and low salt diet Activity on Discharge: As tolerated Stand Alone Forms: Patient Portal Discharge page Care Plan Goals: Patient came with the hospital because uncontrolled diabetes mellitus, VICKY, balanitis, likely has dementia, taking very poor care of himself: Subsequently patient was managed with hydration, insulin, balanitis case given clotrimazole: Fingersticks seems to be improving but have invariably hypoglycemic episode. Started on fingersticks with sliding scale coverage please avoid coverage below 200 mg/ dL. Hold Levemir for now-slowly introduced at lower dose in rehab if fingersticks are remain above 200 mg/dL. Further management outpatient as per rehab. VICKY: Improved with hydration.. Dementia case: Follow-up outpatient with Neurology-for EEG. Health Concerns: As above. Plan of Treatment: As above. Assessment: As above. Discharge Date/Time: 07/12/21 21:29
--- NOTE | 2021-07-12 14:28 | MHC.CM.PN ---
Addendum entered by Augustina Cunha 07/12/21 15:48: TRANSPORT SCHEDULED FOR 1800 UNIT, RN, PATIENT, AND SON AWARE SON IS IN ROOM Original Note: PATIENT TO TRANSFER TO [facility]. TIME ESTIMATED TO BE BETWEEN [phone]. RN AND UNIT AWARE. SON (IN ROOM) AWARE OF PLAN. IMM 07/12 IN CHART
[2021-07-12 14:37] LABS: COVID-19 Test Negative (Negative)
--- NOTE | 2021-07-12 14:54 | MHC.SL.IMP ---
Date of Plan of Treatment: 07/12/21 Onset of Symptoms/Illness: 07/11/21 Date Treatment Started: 07/11/21 Admitting Diagnosis: VICKY DM2 DM2 neuropathy Balanitis Failure to thrive Dysphagia Primary Speech & Language Diagnosis: R13.12 Oropharyngeal Phase Dysphagia Reason for Today's Visit: 45655 Modified Barium Swallow Study Pre-evaluation Dietary Consistencies: Chopped/Advanced (NDD3) Pre-evaluation Liquid Consistency: Thin Pre-evaluation Medication Administration: Whole with Liquid Medical History: Comments: Modified Barium Swallow Study Fluoroscopic Evaluation of Swallowing Function CPT Code 00264 Evaluation Year: 2020 Reason for Study: Patient reports globus sensation. Referring Physician: Genoveva Shafer M.D. Evaluating Clinician: Mariah Cam M.A. [facility]-LIGHTOUT EXAMINER Study Number: 1 Patient Name: Eugene Delarosa Status: Inpatient, Wheelchair Age: 81 Gender: Male MEDICAL HISTORY: Year of Onset or Diagnosis: 2020 Comorbidities: VICKY DM2 DM2 neuropathy Balanitis Failure to thrive Dysphagia Current (pre-evaluation) Intake/Diet: Route: PO Diet Grade: CHOPPED/ADVANCED NDD3 (National Dysphagia Diet Level III) Liquid Consistencies: Thin Pre-Study Functional Oral Intake Scale (FOIS): 5- Total oral intake of multiple consistencies requiring special preparation Pain: None reported at time of study Oral Motor Exam Facial Symmetry: Symmetrical Facial Movement: Controlled Mouth Occlusion: Normal Oral-Facial Teeth Characteristics: Edentulous Oral-Facial Teeth Miscellaneous Observation: Patient reports leaving dentures at home. Oral-Facial Lip Pucker Description: Normal Oral-Facial Smile (Lips) Description: Normal Oral-Facial Puff Cheeks Description: Normal Tongue Size: Normal Tongue Frenum Length: Normal Tongue Excursion Description: Normal Tongue Range of Movement Description: Normal Tongue Speed of Movement Description: Reduced Tongue Strength of Movement (against opposing pressure): Normal Tongue Movement Characteristics: Normal/Absent Is patient able to manage secretions?: Yes Food and Liquid Trials: Oral Impairment: Lip Closure: 0=No labial escape Oral Impairment: Tongue Control During Bolus Hold: 1=Escape to lateral buccal cavity/floor of mouth (FOM) Oral Impairment: Bolus Preparation/Mastication: 1=Slow prolonged chewing/mashing with complete re-collection Oral Impairment: Bolus Transport/Lingual Motion: 2=Slowed tongue motion Oral Impairment: Oral Residue: 2=Residue collection on oral structures Oral Impairment:Initiation of Pharyngeal Swallow: 3=Bolus head in pyriforms Pharyngeal Impairment: Soft Palate Elevation: 0=No bolus between soft palate (SP)/pharyngeal wall (PW) Pharyngeal Impairment: Laryngeal Elevation: 1=Partial thyroid cartilage/arytenoids to epiglottic petiole movement Pharyngeal Impairment: Anterior Hyoid Excursion: 1=Partial anterior movement Pharyngeal Impairment: Epiglottic Movement: 0=Complete inversion Pharyngeal Impairment: Laryngeal Vestibular Closure:: 0=Complete: no air/contrast in laryngeal vestibule Pharyngeal Impairment: Pharyngeal Stripping Wave: 0=Present: complete Pharyngeal Impairment: Pharyngeal Contraction: Did not test Pharyngeal Impairment: Pharyngoesophageal Segment Openin=Complete distension and complete duration: no obstruction of flow Pharyngeal Impairment: Tongue Base (TB) Retraction: 2=Narrow column of contrast/air between TB and posterior PW Pharyngeal Impairment: Pharyngeal Residue: 1=Trace residue within or on pharyngeal structures Pharyngeal Impairment: Esophageal Clearance Upright Position: Did not test Impressions and Recommendations Clinical Observations: OBJECTIVE: Time-out: performed at 1:45 Evaluation Start: 1:30; Stop: 1:35 Patient Positioning: Seated 70-90 degrees Viewing Planes: LATERAL ONLY Contrast: MBSImP? Standardized Protocol using commercially prepared, standardized Barium viscosities, including: Varibar? THIN LIQUID (40% w/v, <15 cps) , 1/2 Shortbread Cookie (1 x1 x.25 ) MBSImP ID: [id number] MBSImP Results: Lip closure for intraoral bolus containment resulted in no labial escape. Tongue control during bolus hold allowed bolus escape to the lateral buccal cavity/floor of mouth. Bolus preparation and mastication resulted in slow, prolonged chewing/mashing but with complete re-collection. Bolus transport/lingual motion was with slowed tongue motion. Oral residue was a collection on oral structures. Initiation of the pharyngeal swallow occurred when the bolus head was in the pyriform sinuses. Soft palate elevation resulted in no bolus between the soft palate and the pharyngeal wall. Laryngeal elevation was decreased, with partial superior movement of the thyroid cartilage/partial approximation of the arytenoids to the epiglottic petiole. Anterior hyoid excursion demonstrated partial anterior movement. Epiglottic movement resulted in complete inversion. Laryngeal vestibular closure was complete, as indicated by no air or contrast within the laryngeal vestibule at the height of the swallow. Pharyngeal stripping wave was present and complete. Pharyngeal contraction could not be determined due to logistical reasons not related to physiologic impairment. Pharyngoesophageal segment opening was completely distended for complete duration with no obstruction of bolus flow. Tongue base retraction allowed a narrow column of contrast or air between the retracted tongue base and the posterior pharyngeal wall. Pharyngeal residue was a trace within or on pharyngeal structures. Esophageal clearance in the upright position could not be assessed due to logistical reasons not related to physiologic impairment. Oral Impairment Score: 9 Pharyngeal Impairment Score: 4 (absence of score, component 13) Esophageal Impairment Score: --- (absence of score, component 17) Laryngeal Penetration and Aspiration: Neither penetration nor aspiration was observed in today's study with Farnaz Thin. ASSESSMENT: Clinician Assessment: This exam was conducted by a radiologist and a speech language pathologist. Patient was seated in upright position at 90 degree angle for lateral view only. Patient fed himself. He trialed the following liquid and solid consistencies: -5 mL thin liquid barium -individual cup sip thin liquid barium -consecutive cup sip thin liquid barium -pureed solid (applesauce mixed with barium paste) -ground solid (chicken salad mixed with barium paste) -Becca Doone cookie (regular solid coated in barium paste) Patient displays piece meal deglutition pattern. Patient chews food, swallows, continues chewing, and then swallows again. Note mild oral residue when eating solids, which clears with volitional dry swallow. Trace pharyngeal residue on tongue base and valleculae, which also cleared with dry swallow. No evidence of aspiration or penetration. Liquid Intake Recommendation: Thin Liquid Intake Strategies: Small Sips Dietary Recommendations: Chopped/Advanced (NDD3) Medication Administration: Whole with Liquid Compensatory Strategies Recommended: Sitting Upright (90 deg) Double Swallow Small Bites and Sips Alternate Liquids/Solids Rate of Ingestion Change Avoid Specific Foods Supervision during eating and or drinking: Intermittent Supervision Recommended Treatments: Compens. Strategy Educat. Recommendation for Speech Therapy: NA:Typical Evaluation Text Comment: PLAN: Intake Recommendations: Route: PO Diet Grade: CHOPPED/ADVANCED (NDD3) Liquid Consistencies: Thin Post-Study Functional Oral Intake Scale (FOIS): 5- Total oral intake of multiple consistencies requiring special preparation Patient is edentulous and does not have his dentures here with him in the hospital. Patient is able to mash food without his dentures. To ease mastication, recommend CONTINUE CHOPPED/ADVANCED (NDD3) solids and THIN liquids, with pills WHOLE in LIQUID. Patient feeds himself, but is recommended intermittent supervision to ensure strategies: LIQUID WASH/ DOUBLE SWALLOW to clear oral residue. Recommend AVOID tough, difficult to chew foods and dry/sticky foods. Moisten and soften food with sauce/gravy due to edentulous state. Further ST intervention is no longer warranted. Please re-refer if there are any changes or if LIGHTOUT EXAMINER can be of further assistance. Therapy Recommendations: Therapy will be discontinued Prognosis for Improvement: The prognosis for the patient to meet nutritional needs by mouth is excellent based on degree of impairment. Clinician - Supplemental, Miscellaneous Communication: It is important to note MBSS objective studies are snapshots in time and Patient function might vary with factors such as time of day or concomitant medical conditions. For this reason, the final treatment plan for this patient should rest with their medical care team. Additional recommendations should be considered with the totality of the Patient in mind. ? Thank for the opportunity to participate in the care of this patient. If you have any questions about the content of this report, please contact the [facility]. ? Education: Education regarding findings from today's study and plans for therapy were provided to Patient only through Verbal Instruction. Understanding was expressed by the Patient only. Automation Sales Manager Clinician/Clinical Fellow: No Supervisory Statement: N/A Speech Language Pathologist: Mariah Cam M.A., CCC-LIGHTOUT EXAMINER
[2021-07-12] MEDS: 0.9 % Sodium Chloride Flush 3 ML SYRINGE IVFLUSH (15:11)
[2021-07-12 16:10] LABS: Influenza A PCR NEGATIVE (Negative); Influenza B PCR NEGATIVE (Negative); Resp Syncy Virus RNA Qual PCR NEGATIVE (Negative); SARS COV2 PCR INHOUSE NEGATIVE (Negative)
--- NOTE | 2021-07-12 16:26 | MHC.CM.PN ---
PER CONVERSATION WITH [facility], TRANSPORT CHANGED FROM [facility] TO [facility]LS SECONDARY TO DEMENTIA AND BILATERAL LOWER EXTREMITY NEUROPATHY.
[2021-07-12 16:39] LABS: Glucose, Whole Blood 225 mg/dL (60-115)
[2021-07-12] MEDS: Gabapentin 100 MG CAPSULE 200 MG PO (20:52)
[2021-07-12 21:02] LABS: Glucose, Whole Blood 244 mg/dL (60-115)
== END 2021-07-12 21:29 | disposition skilled nursing facility (03) | DRG 638 ==
LOC: HO.ED 22:14 → HO.EDOVER 23:05 → HO.S3 07-10 14:44
PROVIDERS: Family Medicine; Internal Medicine Gastroenterology; Physician Assistant; Admitting Provider Hospitalist; Emergency Provider Emergency Medicine Emergency Medical Services; PCP Family Medicine; Visit Provider Internal Medicine
PROC: 0DJ08ZZ Inspection of Upper Intestinal Tract, Via Natural or Artificial Opening Endoscopic (ICD-10-PCS; CPT 43235; principal; 2021-07-11 13:30)
DX: E11.65 Type 2 diabetes mellitus with hyperglycemia (principal); N17.9 Acute kidney failure, unspecified; E11.42 Type 2 diabetes mellitus with diabetic polyneuropathy; B35.6 Tinea cruris; R13.10 Dysphagia, unspecified; R29.6 Repeated falls; B37.42 Candidal balanitis; F03.90 Unspecified dementia, unspecified severity, without behavioral disturbance, psychotic disturbance, mood disturbance, and anxiety; R62.7 Adult failure to thrive; E11.649 Type 2 diabetes mellitus with hypoglycemia without coma; Z68.24 Body mass index [BMI] 24.0-24.9, adult; Z91.81 History of falling; Z20.822 Contact with and (suspected) exposure to COVID-19; Z87.891 Personal history of nicotine dependence; Z79.4 Long term (current) use of insulin; Z79.02 Long term (current) use of antithrombotics/antiplatelets; Z79.82 Long term (current) use of aspirin; Z79.899 Other long term (current) drug therapy
CPT/HCPCS: 0241U; 36415; 70450; 71045; 74230; 80048; 80076; 81001; 81003; 82009; 82550; 82607; 82746; 82947; 83036; 83880; 84443; 84466; 84484; 85025; 86780; 87389; 87635; 88305; 88342; 92610; 92611; 93005; 95816; 97116; 97162; 97166; 97535; 99285; J3010

== ENCOUNTER 2021-07-22 12:40 | Inpatient (IN) | payer MEDICARE, MEDICAID, SELFPAY ==
[2021-07-22] VITALS (8 sets, daily range): BP systolic 90–127; BP diastolic 53–72; PULSE 78–97; RESP 15–26; TEMP 37.6–38.3; O2SAT 90–97; BMI 23.4; BMI 21.7
--- NOTE | ~2021-07-22 | XR_ITS ---
EXAMINATION: XR CHEST CLINICAL INFORMATION: Fever COMPARISON: None TECHNIQUE: Frontal view of the chest was obtained. FINDINGS: This exam is abnormal. There are patchy areas of opacity throughout the lungs with increased interstitial markings. No effusion is seen. Cardiac silhouette is mildly prominent. XR/XR chest 1V IMPRESSION: Abnormal exam. Diffuse opacities which could represent diffuse areas of infiltrate. Of course pulmonary edema would be in the differential. Correlation recommended clinically
--- NOTE | ~2021-07-22 | XR_ITS ---
EXAMINATION: XR CHEST CLINICAL INFORMATION: Follow-up pneumonia COMPARISON: Previous chest x-ray most recent 07/22/2021 TECHNIQUE: 2 views of the chest were obtained. FINDINGS: The cardiac silhouette is enlarged. There is increasing diffuse bilateral airspace. There are increasing bilateral pleural effusions. Differential would include CHF and pneumonia. There are degenerative changes of the spine. No acute bone abnormality is seen. XR/XR chest 2V IMPRESSION: Increasing bilateral diffuse airspace disease and pleural effusions. Differential would include CHF and pneumonia.
--- NOTE | ~2021-07-22 | XR_ITS ---
EXAMINATION: XR CHEST CLINICAL INFORMATION: 81-year-old male with rales COMPARISON: 07/26/2021 TECHNIQUE: Frontal view of the chest was obtained. FINDINGS: Findings the chest are similar to those observed on 07/26/2021. The bilateral airspace opacities are predominantly in a central, perihilar distribution. Small bilateral pleural effusions are noted. No pneumothorax or other significant change. Cardiac silhouette is borderline enlarged. The visualized bones are intact. XR/XR chest 1V IMPRESSION: Radiographic findings are suggestive of congestive heart failure with perihilar distribution of edema. Differential diagnosis would include multilobar pneumonia. Small pleural effusions are present.
--- NOTE | 2021-07-22 13:25 | ECG_ITS ---
Test Reason : CHEST PAIN Blood Pressure : / mmHG Vent. Rate : 083 BPM Atrial Rate : 083 BPM P-R Int : 188 ms QRS Dur : 074 ms QT Int : 386 ms P-R-T Axes : 055 076 031 degrees QTc Int : 453 ms Normal sinus rhythm Low voltage QRS Cannot rule out Anteroseptal infarct (cited on or before 08-JUL-2021) Abnormal ECG When compared with ECG of 08-JUL-2021 21:25, Vent. rate has increased BY 31 BPM Serial changes of Anteroseptal infarct Present Referred By: Prem Tapia Electronically Signed By:ROLAND DAVID
[2021-07-22 14:00] LABS: MANUAL DIFF FLAG NO
[2021-07-22 14:02] LABS: Basophils Percent Auto 0.1 % (0-2); Eosinophils Percent Auto 0.2 % (0-4); Hematocrit 33.9 % (42-52); Hemoglobin 11.2 g/dl (14.0-18.0); Imm Gran Abs Auto 0.07 X10*3/uL (0.00-0.03); Imm Gran Pct Auto 0.6 % (0.0-0.4); Lymphocytes Absolute Auto 2.2 X10*3/uL (1.2-4.9); Lymphocytes Percent Auto 17.1 % (20-40); Mean Corpuscular Hemoglobin 31.8 pg (27.0-33.0); Mean Corpuscular Volume 96.3 fL (80-98); Mean Platelet Volume 10.5 fL (9.4-12.4); Monocytes Absolute Auto 0.7 X10*3/uL (0.1-1.2); Monocytes Percent Auto 5.4 % (2-11); Neutrophils Absolute Auto 9.7 X10*3/uL (2.0-8.3); Neutrophils Percent Auto 76.6 % (45-73); Platelet Count 248 X10*3/uL (160-400); Red Blood Count 3.52 X10*6/uL (4.60-5.80); Red Cell Distribution Width 14.6 % (11.0-16.0); White Blood Count 12.6 X10*3/uL (4.8-10.8)
[2021-07-22 14:29] LABS: Alanine Aminotransferase 62 U/L (0-40); Albumin Level 3.6 g/dL (3.5-5.0); Alkaline Phosphatase 85 U/L (39-117); Anion Gap 13 (12-20); Aspartate Amino Transferase 68 U/L (5-37); Bilirubin Direct 0.2 mg/dL (0.0-0.5); Bilirubin Total 0.6 mg/dL (0.0-1.0); Blood Urea Nitrogen 23 mg/dL (9-16); Calcium 9.5 mg/dL (8.4-10.2); Carbon Dioxide 31 mmol/L (22-29); Chloride 104 mmol/L (96-108); Creatinine Clr Calc Pharmacy 69.7; Estimated Glomerular Filt Rate > 60; Glucose Random 71 mg/dL (60-115); Potassium 4.3 mmol/L (3.3-5.1); Sodium 144 mmol/L (135-145); Total Protein 6.6 g/dL (6.5-8.0)
[2021-07-22 14:47] LABS: Troponin-I High Sensitivity 714.8 ng/L (<3.5-35.0)
--- NOTE | 2021-07-22 14:52 | ED_ITS ---
HPI - Chest Pain General Chief Complaint: Chest Pain Stated Complaint: chest pain Time Seen by Provider: 07/22/21 13:25 Source: patient and family Mode of arrival: EMS Limitations: no limitations History of Present Illness HPI narrative: Patient has history of past medical history of diabetes not taking his medication was seen here on 07/08 for unkept condition and fall, failure to thrive and dementia complaining of chest pain for last 2 months going to the left arm very poor historian status chest pain is every day. On 07/08 troponin was 5.6 no repeat troponin was done EKG showed slight ST elevation in V2-V4 leads today patient brought by his son as patient complained to his seen about the pain which is going on for last 2 months patient does have a [employer] who comes to his house and advised his son to take to the hospital because of chest pain which is going on for while Related Data Home Medications Medication Instructions Recorded Confirmed gabapentin 100 mg capsule 2 cap PO BEDTIME 07/09/21 07/22/21 insulin detemir U-100 100 unit/mL 50 unit SUBCUT DAILY@1300 07/09/21 07/22/21 (3 mL) subcutaneous pen (Levemir FlexTouch U-100 Insulin) amoxicillin 500 mg capsule 2 cap PO BID 07/22/21 07/22/21 clarithromycin 500 mg tablet 1 tab PO Q12H 07/22/21 07/22/21 Allergies Allergy/AdvReac Type Severity Reaction Status Date / Time No Known Allergies Allergy Unverified 07/08/20 17:17 [No Known Allergies*] Review of Systems Review of Systems: Patient very poor poor historian refusing to answer much says he is feeling fine except for the chest pain no shortness of breath has some dry cough Yes all other systems are reviewed and are negative [facility]LY [facility] Past Medical History FOR[facility] Narrative: Diabetes mellitus Dementia Failure to thrive Diabetic neuropathy Source: old records reviewed Medical History Opportunistic fungus infection Type 2 diabetes mellitus with unspecified complications Social History Social History Household Members: None Housing: Apartment Do you presently have visiting nurse or other home services: Yes Alcohol intake: unknown Patient Tobacco Use Status: Former Tobacco user Quit Date: 1999 Tobacco use type: Cigarette Years Smoked: 4 Advance Directives: Yes Advance Directives on File: Yes Advance Directives Date on File: 07/14/21 service: No Current occupational status: unemployed Physical Exam Vital Signs: Vital Signs: Last Vital Signs Temp 99.7 F 07/22/21 16:08 Pulse 84 07/22/21 16:08 Resp 20 07/22/21 16:08 BP 127/64 07/22/21 16:08 Pulse Ox 90 L 07/22/21 16:08 Body Mass Index 21.7 Appearance: Alert. Oriented X3. No acute distress. Very unkept condition Eyes: No pallor/ icterus ENT: Pharynx normal. Oral Mucosa moist Neck: Normal inspection. Neck supple. CVS: Normal heart rate and rhythm. Pulses normal. Respiratory: No respiratory distress. Equal air entry bilateral, bilateral basal crackles no rhonchi or wheezing Abdomen: Soft and nontender. Bowel sounds are present, no mass palpable, Skin: Skin warm and dry. Normal skin color. Normal skin turgor. Extremities: No lower extremity edema. No calf tenderness Neuro: Oriented X 3. No motor deficit. No sensory deficit.No cerebellar signs , cranial nerves II-XII intact Course Reevaluation(s) Reevaluation #1: Patient with significant elevated troponin to 714.8 from 5.6 on 07/08 EKG showing poor progression of R-wave likely patient has anteroseptal infarct. Case discussed Dr. Munoz director software quality assurance will start patient on heparin to do 2D echo admit for non-STEMI although patient has low-grade fever 100.8 chest x-ray showed bilateral infiltrate COVID-19 is pending will start patient on Rocephin and doxycycline admit to the hospitalist service MDM - Chest Pain MDM Narrative Medical decision making narrative: Patient with chest pain a few months duration EKG showed poor progression of R-wave with anterior wall ID troponins elevated case discussed with Dr. Munoz started on heparin drip bedside echo showed wall motion abnormality. Will give 20 mg of Lasix admit to medical floor patient denying any chest pain at this time patient has elevated lactic acid low-grade fever chest possible infiltrate started on Rocephin and doxycycline will not give IV fluids secondary to CHF and patient not in septic shock. Medical Records Data Attestation: I reviewed the patient's medical records. Lab Data Attestation: I reviewed the patient's lab results. Result diagrams: 07/22/21 13:57 07/22/21 13:57 Labs: Lab Results 07/22/21 07/22/21 07/22/21 Range/Units 13:57 13:57 13:57 WBC 12.6 H (4.8-10.8) X10*3/uL RBC 3.52 L (4.60-5.80) X10*6/uL Hgb 11.2 L (14.0-18.0) g/dl Hct 33.9 L (42-52) % MCV 96.3 (80-98) fL MCH 31.8 (27.0-33.0) pg MCHC 33.0 (31.0-36.0) g/dl RDW 14.6 (11.0-16.0) % Plt Count 248 D (160-400) X10*3/uL MPV 10.5 (9.4-12.4) fL Immature Gran % (Auto) 0.6 H (0.0-0.4) % Neut % (Auto) 76.6 H (45-73) % Lymph % (Auto) 17.1 L (20-40) % Osborne % (Auto) 5.4 (2-11) % Eos % (Auto) 0.2 (0-4) % Baso % (Auto) 0.1 (0-2) % Lymph # (Auto) 2.2 (1.2-4.9) X10*3/uL Osborne # (Auto) 0.7 (0.1-1.2) X10*3/uL Eos # (Auto) 0.0 (0.0-0.4) X10*3/uL Baso # (Auto) 0.0 (0.0-0.2) X10*3/uL Abs Immat Gran (auto) 0.07 H (0.00-0.03) X10*3/uL Absolute Neuts (auto) 9.7 H (2.0-8.3) X10*3/uL Absolute Nucleated RBC 0.000 (0.0-0.012) X10*3/uL Nucleated RBC % (auto) 0.0 (0.0-0.2) /100WBC PT (9.9-13.0) SEC INR (0.9-1.1) APTT (24.1-38.0) SEC Sodium 144 (135-145) mmol/L Potassium 4.3 (3.3-5.1) mmol/L Chloride 104 (96-108) mmol/L Carbon Dioxide 31 H (22-29) mmol/L Anion Gap 13 (12-20) BUN 23 H D (9-16) mg/dL Creatinine 0.79 (0.5-1.4) mg/dL Estim Creat Clear Calc 69.7 Estimated GFR > 60 Random Glucose 71 D (60-115) mg/dL Lactic Acid (0.5-2.0) mmol/L Calcium 9.5 D (8.4-10.2) mg/dL Total Bilirubin 0.6 (0.0-1.0) mg/dL Direct Bilirubin 0.2 (0.0-0.5) mg/dL AST 68 H (5-37) U/L ALT 62 H (0-40) U/L Alkaline Phosphatase 85 D (39-117) U/L Total Creatine Kinase 208 H D (38-174) U/L Troponin I High Sens 714.8 H* D (<3.5-35.0) ng/L B-Natriuretic Peptide 1550 H (<100) pg/mL Total Protein 6.6 (6.5-8.0) g/dL Albumin 3.6 (3.5-5.0) g/dL Procalcitonin ng/mL COVID-19 (KELLIE) (Negative) COVID-19 Clin Com 07/22/21 07/22/21 07/22/21 Range/Units 13:57 15:12 15:12 WBC (4.8-10.8) X10*3/uL RBC (4.60-5.80) X10*6/uL Hgb (14.0-18.0) g/dl Hct (42-52) % MCV (80-98) fL MCH (27.0-33.0) pg MCHC (31.0-36.0) g/dl RDW (11.0-16.0) % Plt Count (160-400) X10*3/uL MPV (9.4-12.4) fL Immature Gran % (Auto) (0.0-0.4) % Neut % (Auto) (45-73) % Lymph % (Auto) (20-40) % Osborne % (Auto) (2-11) % Eos % (Auto) (0-4) % Baso % (Auto) (0-2) % Lymph # (Auto) (1.2-4.9) X10*3/uL [place]borne # (Auto) (0.1-1.2) X10*3/uL Eos # (Auto) (0.0-0.4) X10*3/uL Baso # (Auto) (0.0-0.2) X10*3/uL Abs Immat Gran (auto) (0.00-0.03) X10*3/uL Absolute Neuts (auto) (2.0-8.3) X10*3/uL Absolute Nucleated RBC (0.0-0.012) X10*3/uL Nucleated RBC % (auto) (0.0-0.2) /100WBC PT 10.5 (9.9-13.0) SEC INR 0.9 (0.9-1.1) APTT 28.5 (24.1-38.0) SEC Sodium (135-145) mmol/L Potassium (3.3-5.1) mmol/L Chloride (96-108) mmol/L Carbon Dioxide (22-29) mmol/L Anion Gap (12-20) BUN (9-16) mg/dL Creatinine (0.5-1.4) mg/dL Estim Creat Clear Calc Estimated GFR Random Glucose (60-115) mg/dL Lactic Acid 3.0 H* (0.5-2.0) mmol/L Calcium (8.4-10.2) mg/dL Total Bilirubin (0.0-1.0) mg/dL Direct Bilirubin (0.0-0.5) mg/dL AST (5-37) U/L ALT (0-40) U/L Alkaline Phosphatase (39-117) U/L Total Creatine Kinase (38-174) U/L Troponin I High Sens (<3.5-35.0) ng/L B-Natriuretic Peptide (<100) pg/mL Total Protein (6.5-8.0) g/dL Albumin (3.5-5.0) g/dL Procalcitonin 0.07 ng/mL COVID-19 (KELLIE) (Negative) COVID-19 Clin Com 07/22/21 Range/Units 15:12 WBC (4.8-10.8) X10*3/uL RBC (4.60-5.80) X10*6/uL Hgb (14.0-18.0) g/dl Hct (42-52) % MCV (80-98) fL MCH (27.0-33.0) pg MCHC (31.0-36.0) g/dl RDW (11.0-16.0) % Plt Count (160-400) X10*3/uL MPV (9.4-12.4) fL Immature Gran % (Auto) (0.0-0.4) % Neut % (Auto) (45-73) % Lymph % (Auto) (20-40) % Osborne % (Auto) (2-11) % Eos % (Auto) (0-4) % Baso % (Auto) (0-2) % Lymph # (Auto) (1.2-4.9) X10*3/uL Osborne # (Auto) (0.1-1.2) X10*3/uL Eos # (Auto) (0.0-0.4) X10*3/uL Baso # (Auto) (0.0-0.2) X10*3/uL Abs Immat Gran (auto) (0.00-0.03) X10*3/uL Absolute Neuts (auto) (2.0-8.3) X10*3/uL Absolute Nucleated RBC (0.0-0.012) X10*3/uL Nucleated RBC % (auto) (0.0-0.2) /100WBC PT (9.9-13.0) SEC INR (0.9-1.1) APTT (24.1-38.0) SEC Sodium (135-145) mmol/L Potassium (3.3-5.1) mmol/L Chloride (96-108) mmol/L Carbon Dioxide (22-29) mmol/L Anion Gap (12-20) BUN (9-16) mg/dL Creatinine (0.5-1.4) mg/dL Estim Creat Clear Calc Estimated GFR Random Glucose (60-115) mg/dL Lactic Acid (0.5-2.0) mmol/L Calcium (8.4-10.2) mg/dL Total Bilirubin (0.0-1.0) mg/dL Direct Bilirubin (0.0-0.5) mg/dL AST (5-37) U/L ALT (0-40) U/L Alkaline Phosphatase (39-117) U/L Total Creatine Kinase (38-174) U/L Troponin I High Sens (<3.5-35.0) ng/L B-Natriuretic Peptide (<100) pg/mL Total Protein (6.5-8.0) g/dL Albumin (3.5-5.0) g/dL Procalcitonin ng/mL COVID-19 (KELLIE) Negative (Negative) COVID-19 Clin Com See Note Critical Care Time Critical Care Time Critical Care Time: Yes Total Critical Care Time: 40 Attestation: I spent 40 minutes of critical care, with interventions, assessments, speaking to patient, consultants, and family. Discharge Plan Discharge Clinical Impression: Non-STEMI (non-ST elevated myocardial infarction) Pneumonia Qualifiers: Pneumonia type: due to unspecified organism Laterality: bilateral Lung location: unspecified part of lung Qualified Code(s): J18.9 - Pneumonia, unspecified organism Patient Disposition: Admitted As Inpatient
--- NOTE | 2021-07-22 15:10 | CA_ITS ---
Transthoracic Echocardiogram Patient (Last, First, Middle): Eugene Delarosa, Gender: Male Date of : 1940 Age: 81 Procedure Date: 07/22/2021 Procedure Type: Transthoracic Echocardiogram Location: ER Height: 172.72 cm Weight: 69.85 kg BSA: 1.83 m2 Heart Rate: bpm BP: 122 / 66 mmHg [employer]: Referring MD: Prem Tapia MD Symptoms: NSTEMI Study Quality: Good ECG Rhythm: Sinus Conclusions: - The left ventricular systolic function is severely decreased. The visually estimated ejection fraction is between 25-30%. - Wall motion abnormalities from underlying coronary disease. - There is mildly decreased right ventricular systolic function. - No obvious valvular pathology seen on this study. Findings Left Ventricle Normal left ventricular cavity size. There is mildly increased left ventricular wall thickness. The left ventricular systolic function is severely decreased. The visually estimated ejection fraction is between 25 30%. There is evidence of regional wall motion abnormalities. E/E prime ratio is >15, consistent with elevated filling pressures. Evidence suggests grade II (moderate) diastolic dysfunction. Wall Motion Rest Echo Findings The apical inferior and basal inferior segments are hypokinetic. The apical anterior, mid inferior, apical septum, mid inferoseptal, and mid anteroseptal segments are akinetic. Right Ventricle Normal right ventricular cavity size. There is mildly decreased right ventricular systolic function. TAPSE 1.66cm. Atria Both atria are normal in size. Aortic Valve There is a normal trileaflet aortic valve. There is mild calcification of the aortic valve. There is no aortic valve stenosis. The mean gradient is 4 mmHg. There is trace (trivial) aortic valve regurgitation. Mitral Valve The mitral valve appears normal. There is trace mitral valve regurgitation. There is no mitral valve stenosis. Pulmonic Valve The pulmonic valve was not well visualized. There is trace pulmonic valve regurgitation. Tricuspid Valve There is mild tricuspid valve regurgitation. The pulmonary artery systolic pressure is normal. Great Vessels The asc aorta is normal in size. Venous The inferior vena cava is normal in size and collapses greater than 50% with inspiration. Pericardium/Pleural There is no evidence of pericardial effusion. Prior Study Comparison No prior study available for comparison. Recommendations, Care & Conclusions No obvious valvular pathology seen on this study. Measurements 2D Linear Measurements IVSd: 1.12 0.6-0.9/0.6-1.0 cm LVIDd: 4.79 3.9-5.3/4.2-5.9 cm LVIDd Index: 2.62 2.4-3.2/2.2-3.1 cm/m2 LVIDs: 4.12 2.0-3.6 cm LVPWd: 1.07 0.7-1.1 cm Ao Root: 3.70 2.1-3.5 cm LA Diam: 3.70 2.7-3.8/3.0-4.0 cm LAIDs Index: 2.02 1.5-2.3 cm/m2 LV Mass: 239.37 67-162/88-224 g LV Mass Index: 130.80 43-95/49-115 g/m2 LVOT Diam: 2.00 3.0+(-)1.3 cm 2D Systolic Function EF 4C: 31.90 >55% EF 2C: 14.20 >55% EF BiP: 24.90 >55% Mitral Valve MV Pk E: 1.30 MV PK A: 0.57 MV Decel Time: 112.00 E/A: 2.30 E'Lateral: 5.77 E'Medial: 3.81 E/E' Med: 34.10 E/E' Lat: 22.50 PHT: 33.00 MVA PHT: 6.67 Decel Moore: 11.59 Aortic Valve AoV Pk Everette: 1.27 AoV Mn Everette: 0.94 AoV VTI: 0.25 AoV Pk Grad: 6.00 Aov Mn Grad: 4.00 HITESH Cont.VTI: 2.30 LVOT LVOT Pk Everette: 0.78 LVOT Mn Everette: 0.51 LVOT VTI: 0.18 LVOT Pk Grad: 2.00 LVOT Mn Grad: 1.00 LVOT Diam: 2.00 LVOT Area: 3.14 Diastolic Function MV Pk E: 1.30 MV Pk A: 0.57 E/A: 2.30 E'Medial: 3.81 E/E' Med: 34.10 E' Laterial: 5.77 E/E' Lat: 22.50 Right Ventricle TAPSE (mm): 16.00 Tricuspid Valve TR Pk Everette: 2.73 TR Pk Grad: 30.00 Great Vessels Aorta Ao Root-2D: 3.70 2.0-3.7 cm Ao Asc: 3.80 2.1-3.4 cm Pulmonary Valve PV Pk Everette: 1.00 Peak PV Grad: 4.00 Updated in Other Vendor System with Status of Final Jerel Munoz MD electronically signed on 07/23/2021 9:05:18 AM with status of Final
[2021-07-22 15:26] LABS: INTERNATIONAL NORM RATIO 0.9 (0.9-1.1); Prothrombin Time 10.5 SEC (9.9-13.0)
[2021-07-22 15:29] LABS: Partial Thromboplastin Time 28.5 SEC (24.1-38.0)
[2021-07-22 15:41] LABS: COVID-19 Test Negative (Negative)
[2021-07-22] MEDS: Nitroglycerin 2 % Oint 1 GM Packet 0.5 INCH TRANSDERMA (15:43)
[2021-07-22] MEDS: Aspirin Enteric Coated 81 MG TABLET.DR 162 MG PO (15:43)
--- NOTE | 2021-07-22 15:44 | PM.CNCAR ---
History of Present Illness History of Present Illness Date of Service: 07/22/21 Chief complaint: chest pain Narrative: This is a cardiology consultation regarding chest pain and elevated troponin suggesting non ST elevation myocardial infarction. Patient is a poor historian difficult to get detailed history in spite of educational sign language interpreter. He states that he has been having chest pains on the left side for the last 5 months or so. This duration has been variable as the ER doctor said 2 months. Also the characterization of the pain is also atypical as he states he gets this pain only at nighttime but not during other times. Some radiation to shoulder and left arm but again his description of this is so variable. With regard to shortness of breath, he said initially he was not short of breath but when I questioned him again he said he was short of breath with activity. No known coronary artery disease or myocardial infarction per patient. Review of Systems Review of Systems: Yes all other systems are reviewed and are negative Cardiovascular: Cardiovascular: Reports as per HPI, Reports no additional cardiovascular complaints, Denies acrocyanosis, Denies cool extremities, Denies painful fingertips, Reports chest pain, Reports chest pain at rest, Denies diaphoresis, Denies syncope, Denies irregular heart rhythm, Denies claudication, Denies leg edema, Denies lightheadedness, Denies palpitations and Denies dyspnea Respiratory: Respiratory: Denies dyspnea Neurologic: Denies syncope Endocrine: Endocrine: Denies palpitations [facility] Past Medical History Medical History (Updated 07/22/21 @ 15:48 by Jerel Munoz MD) Opportunistic fungus infection Type 2 diabetes mellitus with unspecified complications Family History Pertinent family history: Patient unable to give this information at all. Social History Social History Household Members: None Housing: Apartment Do you presently have visiting nurse or other home services: Yes Alcohol intake: unknown Patient Tobacco Use Status: Former Tobacco user Quit Date: 1999 Tobacco use type: Cigarette Years Smoked: 4 Advance Directives: Yes Advance Directives on File: Yes Advance Directives Date on File: 07/14/21 service: No Current occupational status: unemployed Meds Allergies Allergy/AdvReac Type Severity Reaction Status Date / Time No Known Allergies Allergy Unverified 07/08/20 17:17 [No Known Allergies*] Active Medications: Current Medications Heparin Sodium/Sodium Chloride () 25,000 unit in 250 mls @ 0 mls/hr IVCONT .Q0M CHRISTIANE; Protocol Sodium Chloride (Ns) 1,000 mls @ 999 mls/hr IVCONT .Q1H1M CHRISTIANE Stop: 07/22/21 16:45 Ceftriaxone Sodium 1 gm/ (Sodium Chloride) 50 mls @ 100 mls/hr IV ONCE ONE Stop: 07/22/21 16:00 Doxycycline Hyclate 100 mg/ (Sodium Chloride) 250 mls @ 166.67 mls/hr IV ONCE ONE Stop: 07/22/21 17:00 Home Medications Medication Instructions Recorded Confirmed Last Taken Type gabapentin 100 mg capsule 2 cap PO BEDTIME 07/09/21 07/09/21 Unknown History insulin detemir U-100 100 unit/mL 50 unit SUBCUT QPM 07/09/21 07/09/21 Unknown History (3 mL) subcutaneous pen (Levemir FlexTouch U-100 Insulin) Physical Exam Vital Signs: Vital Signs: Last Vital Signs Temp 100.9 F H 07/22/21 13:03 Pulse 97 07/22/21 15:20 Resp 22 H 07/22/21 15:20 BP 109/58 L 07/22/21 15:20 Pulse Ox 95 07/22/21 15:20 Body Mass Index 23.4 Const: General: cooperative and no acute distress HENMT: Other: Unremarkable Neck: Neck: Yes normal visual inspection Chest: Chest palpation & inspection: normal inspection of the chest Resp: Auscultation: rhonchi (Bilateral.) Cardio: Other: Unable to listen to heart sounds or murmurs as he is not able to hold his breath. Additionally, lung sounds interfere with cardiac consultation. Jugular venous distension: no JVD Palpation: normal PMI GI: Palpation (GI): Soft to palpation Back/Spine/Pelvis: Other: unremarkable Skin: General skin exam: no rashes or lesions noted Neuro: Cranial nerves: Yes Other cranial nerve findings present Extrem: General: Yes no clubbing, cyanosis or edema Psych: Mental Status: other Results Labs and Meds Result diagrams: 07/22/21 13:57 07/22/21 13:57 Lab results: Laboratory Results - last 24 hr 07/22/21 07/22/21 07/22/21 13:57 13:57 13:57 WBC 12.6 H RBC 3.52 L Hgb 11.2 L Hct 33.9 L MCV 96.3 MCH 31.8 MCHC 33.0 RDW 14.6 Plt Count 248 D MPV 10.5 Immature Gran % (Auto) 0.6 H Neut % (Auto) 76.6 H Lymph % (Auto) 17.1 L [place] % (Auto) 5.4 Eos % (Auto) 0.2 Baso % (Auto) 0.1 Lymph # (Auto) 2.2 [place] # (Auto) 0.7 Eos # (Auto) 0.0 Baso # (Auto) 0.0 Abs Immat Gran (auto) 0.07 H Absolute Neuts (auto) 9.7 H Absolute Nucleated RBC 0.000 Nucleated RBC % (auto) 0.0 PT INR APTT Sodium 144 Potassium 4.3 Chloride 104 Carbon Dioxide 31 H Anion Gap 13 BUN 23 H D Creatinine 0.79 Estim Creat Clear Calc 69.7 Estimated GFR > 60 Random Glucose 71 D Lactic Acid Calcium 9.5 D Total Bilirubin 0.6 Direct Bilirubin 0.2 AST 68 H ALT 62 H Alkaline Phosphatase 85 D Total Creatine Kinase 208 H D Troponin I High Sens 714.8 H* D Total Protein 6.6 Albumin 3.6 COVID-19 (KELLIE) COVID-19 Clin Com 07/22/21 07/22/21 07/22/21 15:12 15:12 15:12 WBC RBC Hgb Hct MCV MCH MCHC RDW Plt Count MPV Immature Gran % (Auto) Neut % (Auto) Lymph % (Auto) [place] % (Auto) Eos % (Auto) Baso % (Auto) Lymph # (Auto) [place] # (Auto) Eos # (Auto) Baso # (Auto) Abs Immat Gran (auto) Absolute Neuts (auto) Absolute Nucleated RBC Nucleated RBC % (auto) PT 10.5 INR 0.9 APTT 28.5 Sodium Potassium Chloride Carbon Dioxide Anion Gap BUN Creatinine Estim Creat Clear Calc Estimated GFR Random Glucose Lactic Acid 3.0 H* Calcium Total Bilirubin Direct Bilirubin AST ALT Alkaline Phosphatase Total Creatine Kinase Troponin I High Sens Total Protein Albumin COVID-19 (KELLIE) Negative COVID-19 Clin Com See Note ECG Interpretation: EKG with sinus rhythm at 83/Min; old anteroseptal myocardial infarction with nonspecific changes also. In the prior EKG from July 08, there is slight ST elevation in the anteroseptal leads. Assessment and Plan (1) Non-STEMI (non-ST elevated myocardial infarction): Status: Acute Pertinent labs reviewed. Hemoglobin 11.2; platelets 248. Creatinine is 0.79. Blood sugar 71. Recent hemoglobin A1c is greater than 14. LFTs slightly abnormal with elevation in ALT and AST. Troponin I high sensitivity-714. COVID negative. Bedside echocardiogram shows evidence of anteroseptal wall motion abnormality but yet to be completed. We will review when ready. CXR report pending- images- possibly pulmonary congestion- may give a dose of diuretic. We will treat this as a non ST elevation myocardial infarction in an uncontrolled diabetic. Start him on IV heparin drip. Treat with aspirin, statins. May need use lower does than usual due to elevation in AST/ALT. Nitrates. Likely cardiac catheterization for Sunday. Will follow in am. Discussd with . Procedures Date of Service Date of Service: 07/22/21
[2021-07-22] MEDS: Furosemide 20 MG/2 ML VIAL IVPUSH (16:12)
[2021-07-22 16:26] LABS: B Type Natriuretic Peptide 1550 pg/mL (<100)
--- NOTE | 2021-07-22 16:37 | P.HPHOSP_ITS ---
History of Present Illness Date of Service: 07/22/21 Chief Complaint: chest pain This is an 81yo M with uncontrolled DM2, non-adherent with insulin, who [place] [facility] [place] renal insufficiency and hyperglycemia after fall. He was found to be living in [facility] and was discharged to a alf for rehabilitation. Hospitalization was notable for prerenal azotemia that resolved with IV fluid hydration, uncontrolled DM2 with A1c >14 but complicated by a hypoglycemic episode, candidal balanitis, and likely diagnosis of dementia. He was noted to be malnourished and started on supplementation. Due to dysphagia, he had PROFESSOR/NURSE ANESTHETIST evaluation and MBSS, which were fine; EGD showed gastritis with suspected H pylori. At rehabiltation, he developed pressure-type chest pain with associated diaphoresis and dyspnea about 3-4 days ago; however, he told the ED physician that this has been going on for 2 months. The pain radiates up the left arm and into the jaw. He was given aspirin and nitroglycerin paste and states that currently the pain is 2/10. Initial troponin-I was 715. Electrocardiography showed septal Q waves and anterior ST depressions. In retrospect, his ED EKG from 07/08/21 was reviewed and showed anterior ST elevations, though he was not complaining of chest pain at that time. Troponin-I back then was 5.6. Echocardiogram today demonstrated regional wall motion abnormalities. BNP was 1550. Cardiology was consulted by the ED physician and the patient was started on heparin infusion and given 20 mg of IV furosemide. He does note a cough with thin sputum for the past few days. He was also noted to be mildly febrile to 100.9 with WBC elevated to 12.6. Initial lactate was 3. Chest X-ray demonstrated diffuse infiltrates suspicious for infiltrate versus edema. He was given ceftriaxone and doxycycline after blood cultures were drawn. Review of Systems Review of Systems: Yes all other systems are reviewed and are negative [facility] Medical History Opportunistic fungus infection Type 2 diabetes mellitus with unspecified complications Pertinent family history: DM Social History Household Members: None Housing: Apartment Do you presently have visiting nurse or other home services: Yes Alcohol intake: unknown Patient Tobacco Use Status: Former Tobacco user Quit Date: 1999 Tobacco use type: Cigarette Years Smoked: 4 Advance Directives: Yes Advance Directives on File: Yes Advance Directives Date on File: 07/14/21 service: No Current occupational status: unemployed Meds Allergies Allergy/AdvReac Type Severity Reaction Status Date / Time No Known Allergies Allergy Unverified 07/08/20 17:17 [No Known Allergies*] Active Medications: Current Medications Acetaminophen (Acetaminophen 325 Mg Tablet) 650 mg PO Q6H PRN PRN Reason: Pain, Mild (Pain Scale 1-3) Dextrose (Dextrose 50 % 25 Gm/50 Ml Vial) 25 gm IVPUSH Q15M PRN; Protocol PRN Reason: per Hypoglycemia Standing Ord. Glucose (Glucose Gel 15 Gm Gel..Gram.) 15 gm PO Q15M PRN; Protocol PRN Reason: per Hypoglycemia Standing Ord. Heparin Sodium (Porcine) (Heparin Sodium,Porcine 5,000 Unit/Ml Vial) 2,600 unit 40 unit/kg (2600 unit) IVPUSH PROTOCOL BOLUS PRN; Protocol PRN Reason: 40 unit/kg - Heparin Protocol Heparin Sodium (Porcine) (Heparin Sodium,Porcine 5,000 Unit/Ml Vial) 5,200 unit 80 unit/kg (5200 unit) IVPUSH PROTOCOL BOLUS PRN; Protocol PRN Reason: 80 unit/kg - Heparin Protocol Doxycycline Hyclate 100 mg/ (Sodium Chloride) 250 mls @ 166.67 mls/hr IV ONCE ONE Stop: 07/22/21 17:00 Heparin Sodium/Sodium Chloride () 25,000 unit in 250 mls @ 0 mls/hr IVCONT .Q0M [facility]; Protocol Insulin Human Lispro (Insulin Lispro 100 Unit/Ml 3 Ml Vial) 0 unit SUBCUT QIDACHS [facility]; Protocol Ondansetron HCl (Ondansetron Hcl 4 Mg/2 Ml Vial) 4 mg IVPUSH Q8H PRN PRN Reason: Nausea and Vomiting Pharmacy Consult (Consult Rx Perform Med Rec) 1 each MISCELLANE STAT STA Stop: 07/22/21 16:07 Sodium Chloride (0.9 % Sodium Chloride Flush 3 Ml Syringe) 3 ml IVFLUSH [facility] Home Medications Medication Instructions Recorded Confirmed Last Taken Type gabapentin 100 mg capsule 2 cap PO BEDTIME 07/09/21 07/22/21 Unknown History insulin detemir U-100 100 unit/mL 50 unit SUBCUT DAILY@1300 07/09/21 07/22/21 Unknown History (3 mL) subcutaneous pen (Levemir FlexTouch U-100 Insulin) amoxicillin 500 mg capsule 2 cap PO BID 07/22/21 07/22/21 Unknown History clarithromycin 500 mg tablet 1 tab PO Q12H 07/22/21 07/22/21 Unknown History Physical Exam Vital Signs and Narrative: Vital Signs: Last Vital Signs Temp 100.9 F H 07/22/21 13:03 Pulse 86 07/22/21 16:05 Resp 26 H 07/22/21 16:05 BP 118/66 07/22/21 16:05 Pulse Ox 95 07/22/21 15:20 Body Mass Index 21.7 Gen: in no acute distress HEENT: sclera anicteric, edentulous, moist membranes Neck: supple Lungs: mildly tachypneic, coarse inspiratory crackles at bases bilaterally Heart: regular rate and rhythm, no murmurs Abd: soft, non-tender, non-distended Ext: no edema Skin: warm/well-perfused Neuro: alert and oriented x3, no focal findings Psych: appropriate affect Results Labs CBC and Chem 7: 07/22/21 13:57 07/22/21 13:57 Labs: Laboratory Results - last 24 hr 07/22/21 07/22/21 07/22/21 13:57 13:57 13:57 MCV 96.3 MCH 31.8 MCHC 33.0 RDW 14.6 Plt Count 248 D MPV 10.5 Immature Gran % (Auto) 0.6 H Neut % (Auto) 76.6 H Lymph % (Auto) 17.1 L [place] % (Auto) 5.4 Eos % (Auto) 0.2 Baso % (Auto) 0.1 Lymph # (Auto) 2.2 [place] # (Auto) 0.7 Eos # (Auto) 0.0 Baso # (Auto) 0.0 Abs Immat Gran (auto) 0.07 H Absolute Neuts (auto) 9.7 H Absolute Nucleated RBC 0.000 Nucleated RBC % (auto) 0.0 PT INR APTT Anion Gap 13 Estim Creat Clear Calc 69.7 Estimated GFR > 60 Random Glucose 71 D Lactic Acid Calcium 9.5 D Total Bilirubin 0.6 Direct Bilirubin 0.2 AST 68 H ALT 62 H Alkaline Phosphatase 85 D Total Creatine Kinase 208 H D Troponin I High Sens 714.8 H* D B-Natriuretic Peptide 1550 H Total Protein 6.6 Albumin 3.6 COVID-19 (KELLIE) COVID-19 Clin Com 07/22/21 07/22/21 07/22/21 15:12 15:12 15:12 MCV MCH MCHC RDW Plt Count MPV Immature Gran % (Auto) Neut % (Auto) Lymph % (Auto) [place] % (Auto) Eos % (Auto) Baso % (Auto) Lymph # (Auto) [place] # (Auto) Eos # (Auto) Baso # (Auto) Abs Immat Gran (auto) Absolute Neuts (auto) Absolute Nucleated RBC Nucleated RBC % (auto) PT 10.5 INR 0.9 APTT 28.5 Anion Gap Estim Creat Clear Calc Estimated GFR Random Glucose Lactic Acid 3.0 H* Calcium Total Bilirubin Direct Bilirubin AST ALT Alkaline Phosphatase Total Creatine Kinase Troponin I High Sens B-Natriuretic Peptide Total Protein Albumin COVID-19 (KELLIE) Negative COVID-19 Clin Com See Note Assessment and Plan (1) Non-STEMI (non-ST elevated myocardial infarction): Status: Acute (2) Pneumonia: Status: Acute 81yo M with uncontrolled DM2, likely dementia, and malnutrition with recent admission 07/08-07/12/21 for renal insufficiency, hyperglycemia, fall, and inadequate self-care. He is presenting with subacute chest pain and found to have NSTEMI. In retrospect, may have had recent STEMI in ED 07/08/21 though this was not noted and the patient did not have symptoms there. In addition, he is febrile with leukocytosis and is suspected to have pneumonia. # NSTEMI - admit to [facility], heparin gtt, ASA, Cardiology consultation, f/u TTE results # pneumonia - radiographic infiltrates likely due to edema but he is febrile and cough and as such will treat with ceftriaxone/doxycycline, follow BCx, trend PCT # DM2 - correction-dose lispro # moderate protein-calorie malnutrition - supplements # H pylori gastritis - will need combination therapy with metronidazole/doxycycline/PPI/bismuth; will start after NSTEMI + pneumonia have resolved # VTE ppx - on UFH # dispo - FULL CODE Quality Stroke Does the patient have a stroke diagnosis?: No VTE Prior VTE?: No VTE Risk Level:: Medical - moderate - high VTE Device Contraindication: N/A - Device Ordered VTE Drug Contraindication: N/A - Med Ordered
--- NOTE | 2021-07-22 16:40 | PC.NURSE ---
PATIENT WAS UNDRESSED AND CHANGE INTO HOSPITAL ATTIRE BY THIS PCT .
[2021-07-22 16:41] LABS: Procalcitonin 0.07 ng/mL
[2021-07-22] MEDS: Heparin Sodium,Porcine 5,000 UNIT/ML VIAL 5000 UNIT IVPUSH (16:57)
[2021-07-22] MEDS: cefTRIAXone sodium 1 GM in 0.9 % Sodium Chloride 50 ML IV (17:07)
--- NOTE | 2021-07-22 17:14 | PHA.MEDREC ---
Pharmacy Consult ? Medication Reconciliation Pharmacy has completed the medication reconciliation. Spoke with son Gianni [phone] who claims to only be giving the patient amoxicillin, gabapentin and levemir in the afternoon. clarithromycin was picked up from the pharmacy but they said they did not have that antibiotic
[2021-07-22 17:17] LABS: Reflex Lactate? Lactic Acid Added
--- NOTE | 2021-07-22 17:51 | PC.NURSE ---
PATIENT BLOOD SUGAR IS 49 RN AWARE ,PATIENT WAS GIVEN OJ TO DRINK
[2021-07-22 18:00] LABS: Troponin-I High Sensitivity 732.6 ng/L (<3.5-35.0)
[2021-07-22 18:11] LABS: ~Lactic Acid-LAB USE ONLY 2.6 mmol/L (0.5-2.0)
--- NOTE | 2021-07-22 18:14 | PC.NURSE ---
patient refused dinner tray ,stated not hungry .
[2021-07-22] MEDS: Doxycycline Hyclate 100 MG in 0.9 % Sodium Chloride 250 ML 166.67 MG IV (18:25)
--- NOTE | 2021-07-22 18:25 | PC.NURSE ---
DELAY IN EXECUTIVE CREATIVE DIRECTOR D/T NEED FOR 2ND IV LINES, PT VERY DIFFICULT IV PLACEMENT, PT NEEDED 2ND CX BEFORE ABX STARTED, MULTIPLE ATTEMPTS FOR LAB DRAW UNSUCCESSFUL W/PHLEBOTOMY COMING TO ASSIST.
--- NOTE | 2021-07-22 18:29 | PC.NURSE ---
HOSPITALIST MADE AWARE POC 85- PT ALSO STARTED ON DOXY DRIP THAT WAS MIXED W/D5
[2021-07-22 18:31] LABS: Glucose, Whole Blood 49 mg/dL (60-115)
[2021-07-22 18:34] LABS: Glucose, Whole Blood 85 mg/dL (60-115)
--- NOTE | 2021-07-22 19:04 | PC.NURSE ---
Pt alert and oriented x4, clam and cooperative. Pt denies pain, pt denies chest pain or SOB. Pt remains on 4 liters O2 nasal cannula. Vitls stable. 2 IV's intact, heparin drip remains infusing without issues, no bleeding noted. Pt resting in strtcher without complaints, will continue to monitor.
[2021-07-22 19:45] LABS: Reflex Lactate? 2 Y
[2021-07-22] MEDS: Atorvastatin Calcium 80 MG TABLET PO (20:00)
[2021-07-22 20:33] LABS: ~Lactic Acid-LAB USE ONLY 2.6 mmol/L (0.5-2.0)
[2021-07-22 21:53] LABS: Glucose, Whole Blood 131 mg/dL (60-115)
[2021-07-22 23:08] LABS: PTT Heparin Drip 68.9 SEC (53-77.9)
[2021-07-22] MEDS: Acetaminophen 325 MG TABLET 650 MG PO (23:51)
[2021-07-22 23:55] LABS: Appearance Urine CLEAR; Color Urine YELLOW; Glucose Urine UA 100 MG/DL (NEG); Leukocyte Esterase Urine NEG (NEG); Nitrite Urine NEG (NEG); Specific Gravity - Urine 1.025 (1.005-1.025); Urine Blood NEG (NEG); Urine Ketones NEG (NEG); Urine Protein TRACE MG/DL (NEG-TRACE)
[2021-07-22 23:56] LABS: UACC Culture Trigger NO
[2021-07-23] VITALS (7 sets, daily range): BP systolic 91–145; BP diastolic 53–76; PULSE 65–78; RESP 14–20; TEMP 36.9–37.7; O2SAT 91–98
[2021-07-23] MEDS: 0.9 % Sodium Chloride Flush 3 ML SYRINGE IVFLUSH ×2 (01:01→21:32)
[2021-07-23 05:04] LABS: Hematocrit 29.9 % (42-52); Mean Corpuscular HGB Conc 33.4 g/dl (31.0-36.0); Mean Corpuscular Hemoglobin 32.4 pg (27.0-33.0); Mean Corpuscular Volume 96.8 fL (80-98); Mean Platelet Volume 10.8 fL (9.4-12.4); Platelet Count 203 X10*3/uL (160-400); Red Blood Count 3.09 X10*6/uL (4.60-5.80); Red Cell Distribution Width 14.7 % (11.0-16.0); White Blood Count 11.5 X10*3/uL (4.8-10.8)
[2021-07-23 05:13] LABS: PTT Heparin Drip 75.9 SEC (53-77.9)
[2021-07-23 05:25] LABS: B Type Natriuretic Peptide 2955 pg/mL (<100)
[2021-07-23] MEDS: Doxycycline Hyclate 100 MG in 0.9 % Sodium Chloride 250 ML 166.67 MG IV ×2 (05:25→18:15)
[2021-07-23 05:55] LABS: Anion Gap 14 (12-20); Blood Urea Nitrogen 22 mg/dL (9-16); Calcium 8.5 mg/dL (8.4-10.2); Carbon Dioxide 26 mmol/L (22-29); Chloride 104 mmol/L (96-108); Creatinine Clr Calc Pharmacy 65.1; Estimated Glomerular Filt Rate > 60; Glucose Random 170 mg/dL (60-115); Potassium 4.3 mmol/L (3.3-5.1); Sodium 140 mmol/L (135-145)
--- NOTE | 2021-07-23 06:18 | PC.NURSE ---
Pt alert and oriented x4, calm and cooperative forgetful at times. Pt denies pain, denies chst pain or SOB. Pt remains on 4 liters O2 with sat at 91%. Pt turns and positions well with assist. Pt had large incontinent urine episode, pt washed and linens changed. 2 IVs remain intact, pt tolerating IV abx well. Pt remains on Heparin drip at 12units/hr with 2 therapeutic PTT over sand blaster.Pt remains on tele monitor in NSR, vitals stable. Pt resting in stretcher without issues, will continue to monitor.
[2021-07-23 07:38] LABS: Glucose, Whole Blood 179 mg/dL (60-115)
[2021-07-23] MEDS: Aspirin 81 MG TAB.CHEW PO (09:13)
--- NOTE | 2021-07-23 10:14 | HO.PM.IMPN ---
Subjective Subjective Date of Service: 07/23/21 Interval History: pt interviewed in [place] chest pain much improved but c/o some throat pain coughing mild dyspnea hypoglycemic yesterday without symptoms; resolved after D50 Review of Systems Review of Systems: Yes all other systems are reviewed and are negative Physical Exam Vital Signs: Vital Signs: Last Vital Signs Temp 98.7 F 07/23/21 05:26 Pulse 72 07/23/21 06:57 Resp 18 07/23/21 06:57 BP 110/55 L 07/23/21 05:26 Pulse Ox 97 07/23/21 06:57 Body Mass Index 21.7 Gen: in no acute distress HEENT: sclera anicteric, edentulous, moist membranes Neck: supple Lungs: no resp distress, coarse inspiratory crackles at bases bilaterally Heart: regular rate and rhythm, no murmurs Abd: soft, non-tender, non-distended Ext: no edema Skin: warm/well-perfused Neuro: alert and oriented x3, no focal findings Psych: appropriate affect Objective Data Active Medications Acetaminophen (Acetaminophen 325 Mg Tablet) 650 mg PO Q6H PRN PRN Reason: Pain, Mild (Pain Scale 1-3) Last Admin: 07/22/21 23:51 Dose: 650 mg Documented by: RAUL Aspirin (Aspirin 81 Mg Tab.Chew) 81 mg PO DAILY [facility] Last Admin: 07/23/21 09:13 Dose: 81 mg Documented by: GERMAIN Atorvastatin Calcium (Atorvastatin Calcium 80 Mg Tablet) 80 mg PO BEDTIME [facility] Last Admin: 07/22/21 20:00 Dose: 80 mg Documented by: RAUL Dextrose (Dextrose 50 % 25 Gm/50 Ml Vial) 25 gm IVPUSH Q15M PRN; Protocol PRN Reason: per Hypoglycemia Standing Ord. Last Admin: 07/22/21 18:05 Dose: 25 gm Documented by: RADHA Furosemide (Furosemide 40 Mg/4 Ml Vial) 40 mg IVPUSH BID@0900,1800 [facility]; Protocol Glucose (Glucose Gel 15 Gm Gel..Gram.) 15 gm PO Q15M PRN; Protocol PRN Reason: per Hypoglycemia Standing Ord. Heparin Sodium (Porcine) (Heparin Sodium,Porcine 5,000 Unit/Ml Vial) 2,600 unit 40 unit/kg (2600 unit) IVPUSH PROTOCOL BOLUS PRN; Protocol PRN Reason: 40 unit/kg - Heparin Protocol Heparin Sodium (Porcine) (Heparin Sodium,Porcine 5,000 Unit/Ml Vial) 5,200 unit 80 unit/kg (5200 unit) IVPUSH PROTOCOL BOLUS PRN; Protocol PRN Reason: 80 unit/kg - Heparin Protocol Heparin Sodium/Sodium Chloride () 25,000 unit in 250 mls @ 0 mls/hr IVCONT .Q0M [facility]; Protocol Doxycycline Hyclate 100 mg/ (Sodium Chloride) 250 mls @ 166.67 mls/hr IV Q12H [facility] Last Infusion: 07/23/21 06:58 Dose: 0 mls/hr Documented by: GERMAIN Ceftriaxone Sodium 1 gm/ (Sodium Chloride) 50 mls @ 100 mls/hr IV Q24H [facility] Last Admin: 07/22/21 18:33 Dose: Not Given Documented by: RADHA Non-Admin Reason: Previously Administered Insulin Human Lispro (Insulin Lispro 100 Unit/Ml 3 Ml Vial) 0 unit SUBCUT QIDACHS [facility]; Protocol Last Admin: 07/23/21 07:38 Dose: Not Given Documented by: GERMAIN Non-Admin Reason: See Note Ondansetron HCl (Ondansetron Hcl 4 Mg/2 Ml Vial) 4 mg IVPUSH Q8H PRN PRN Reason: Nausea and Vomiting Sodium Chloride (0.9 % Sodium Chloride Flush 3 Ml Syringe) 3 ml IVFLUSH QSHIFT [facility] Last Admin: 07/23/21 06:59 Dose: Not Given Documented by: GERMAIN Non-Admin Reason: Med Not Available Labs CBC & Chem 7: 07/23/21 04:59 07/23/21 04:59 Labs: Laboratory Results - last 24 hr 07/22/21 07/22/21 07/22/21 13:57 13:57 13:57 MCV 96.3 MCH 31.8 MCHC 33.0 RDW 14.6 Plt Count 248 D MPV 10.5 Immature Gran % (Auto) 0.6 H Neut % (Auto) 76.6 H Lymph % (Auto) 17.1 L [place] % (Auto) 5.4 Eos % (Auto) 0.2 Baso % (Auto) 0.1 Lymph # (Auto) 2.2 [place] # (Auto) 0.7 Eos # (Auto) 0.0 Baso # (Auto) 0.0 Abs Immat Gran (auto) 0.07 H Absolute Neuts (auto) 9.7 H Absolute Nucleated RBC 0.000 Nucleated RBC % (auto) 0.0 PT INR APTT PTT (Heparin Protocol) Anion Gap 13 Estim Creat Clear Calc 69.7 Estimated GFR > 60 POC Glucose Random Glucose 71 D Lactic Acid Lactic Acid Fup @ 2Hr Lactic Acid Fup @ 4Hr Calcium 9.5 D Magnesium Total Bilirubin 0.6 Direct Bilirubin 0.2 AST 68 H ALT 62 H Alkaline Phosphatase 85 D Total Creatine Kinase 208 H D Troponin I High Sens 714.8 H* D B-Natriuretic Peptide 1550 H Total Protein 6.6 Albumin 3.6 Procalcitonin Urine Color Urine Appearance Urine pH Ur Specific [place] Urine Protein Urine Glucose (UA) Urine Ketones Urine Blood Urine Nitrite Ur Leukocyte Esterase COVID-19 (KELLIE) [employer] 07/22/21 07/22/21 07/22/21 13:57 15:12 15:12 MCV MCH MCHC RDW Plt Count MPV Immature Gran % (Auto) Neut % (Auto) Lymph % (Auto) [place] % (Auto) Eos % (Auto) Baso % (Auto) Lymph # (Auto) [place] # (Auto) Eos # (Auto) Baso # (Auto) Abs Immat Gran (auto) Absolute Neuts (auto) Absolute Nucleated RBC Nucleated RBC % (auto) PT 10.5 INR 0.9 APTT 28.5 PTT (Heparin Protocol) Anion Gap Estim Creat Clear Calc Estimated GFR POC Glucose Random Glucose Lactic Acid 3.0 H* Lactic Acid Fup @ 2Hr Lactic Acid Fup @ 4Hr Calcium Magnesium Total Bilirubin Direct Bilirubin AST ALT Alkaline Phosphatase Total Creatine Kinase Troponin I High Sens B-Natriuretic Peptide Total Protein Albumin Procalcitonin 0.07 Urine Color Urine Appearance Urine pH Ur Specific [place] Urine Protein Urine Glucose (UA) Urine Ketones Urine Blood Urine Nitrite Ur Leukocyte Esterase COVID-19 (KELLIE) COVID-19 [employer] 07/22/21 07/22/21 07/22/21 15:12 17:02 17:41 MCV MCH MCHC RDW Plt Count MPV Immature Gran % (Auto) Neut % (Auto) Lymph % (Auto) [place] % (Auto) Eos % (Auto) Baso % (Auto) Lymph # (Auto) [place] # (Auto) Eos # (Auto) Baso # (Auto) Abs Immat Gran (auto) Absolute Neuts (auto) Absolute Nucleated RBC Nucleated RBC % (auto) PT INR APTT PTT (Heparin Protocol) Anion Gap Estim Creat Clear Calc Estimated GFR POC Glucose Random Glucose Lactic Acid Lactic Acid Fup @ 2Hr 2.6 H* Lactic Acid Fup @ 4Hr Calcium Magnesium Total Bilirubin Direct Bilirubin AST ALT Alkaline Phosphatase Total Creatine Kinase Troponin I High Sens 732.6 H* B-Natriuretic Peptide Total Protein Albumin Procalcitonin Urine Color Urine Appearance Urine pH Ur Specific [place] Urine Protein Urine Glucose (UA) Urine Ketones Urine Blood Urine Nitrite Ur Leukocyte Esterase COVID-19 (KELLIE) Negative COVID-19 Clin Com See Note 07/22/21 07/22/21 07/22/21 17:47 18:26 20:17 MCV MCH MCHC RDW Plt Count MPV Immature Gran % (Auto) Neut % (Auto) Lymph % (Auto) [place] % (Auto) Eos % (Auto) Baso % (Auto) Lymph # (Auto) [place] # (Auto) Eos # (Auto) Baso # (Auto) Abs Immat Gran (auto) Absolute Neuts (auto) Absolute Nucleated RBC Nucleated RBC % (auto) PT INR APTT PTT (Heparin Protocol) Anion Gap Estim Creat Clear Calc Estimated GFR POC Glucose 49 L* 85 Random Glucose Lactic Acid Lactic Acid Fup @ 2Hr Lactic Acid Fup @ 4Hr 2.6 H* Calcium Magnesium Total Bilirubin Direct Bilirubin AST ALT Alkaline Phosphatase Total Creatine Kinase Troponin I High Sens B-Natriuretic Peptide Total Protein Albumin Procalcitonin Urine Color Urine Appearance Urine pH Ur Specific [place] Urine Protein Urine Glucose (UA) Urine Ketones Urine Blood Urine Nitrite Ur Leukocyte Esterase COVID-19 (KELLIE) COVID-19 [facility] 07/22/21 07/22/21 07/22/21 21:49 22:54 23:41 MCV MCH MCHC RDW Plt Count MPV Immature Gran % (Auto) Neut % (Auto) Lymph % (Auto) [place] % (Auto) Eos % (Auto) Baso % (Auto) Lymph # (Auto) [place] # (Auto) Eos # (Auto) Baso # (Auto) Abs Immat Gran (auto) Absolute Neuts (auto) Absolute Nucleated RBC Nucleated RBC % (auto) PT INR APTT PTT (Heparin Protocol) 68.9 Anion Gap Estim Creat Clear Calc Estimated GFR POC Glucose 131 H Random Glucose Lactic Acid Lactic Acid Fup @ 2Hr Lactic Acid Fup @ 4Hr Calcium Magnesium Total Bilirubin Direct Bilirubin AST ALT Alkaline Phosphatase Total Creatine Kinase Troponin I High Sens B-Natriuretic Peptide Total Protein Albumin Procalcitonin Urine Color YELLOW Urine Appearance CLEAR Urine pH 6.0 Ur Specific [place] 1.025 Urine Protein TRACE Urine Glucose (UA) 100 H Urine Ketones NEG Urine Blood NEG Urine Nitrite NEG Ur Leukocyte Esterase NEG COVID-19 (KELLIE) COVID-19 [employer] 07/23/21 07/23/21 07/23/21 04:59 04:59 04:59 MCV 96.8 MCH 32.4 MCHC 33.4 RDW 14.7 Plt Count 203 MPV 10.8 Immature Gran % (Auto) Neut % (Auto) Lymph % (Auto) [place] % (Auto) Eos % (Auto) Baso % (Auto) Lymph # (Auto) [place] # (Auto) Eos # (Auto) Baso # (Auto) Abs Immat Gran (auto) Absolute Neuts (auto) Absolute Nucleated RBC 0.000 Nucleated RBC % (auto) 0.0 PT INR APTT PTT (Heparin Protocol) Anion Gap 14 Estim Creat Clear Calc 65.1 Estimated GFR > 60 POC Glucose Random Glucose 170 H D Lactic Acid Lactic Acid Fup @ 2Hr Lactic Acid Fup @ 4Hr Calcium 8.5 D Magnesium 2.0 Total Bilirubin Direct Bilirubin AST ALT Alkaline Phosphatase Total Creatine Kinase Troponin I High Sens B-Natriuretic Peptide 2955 H Total Protein Albumin Procalcitonin Urine Color Urine Appearance Urine pH Ur Specific [place] Urine Protein Urine Glucose (UA) Urine Ketones Urine Blood Urine Nitrite Ur Leukocyte Esterase COVID-19 (KELLIE) COVID-19 [employer] [facility] 07/23/21 07/23/21 04:59 07:34 MCV MCH MCHC RDW Plt Count MPV Immature Gran % (Auto) Neut % (Auto) Lymph % (Auto) [place] % (Auto) Eos % (Auto) Baso % (Auto) Lymph # (Auto) [place] # (Auto) Eos # (Auto) Baso # (Auto) Abs Immat Gran (auto) Absolute Neuts (auto) Absolute Nucleated RBC Nucleated RBC % (auto) PT INR APTT PTT (Heparin Protocol) 75.9 Anion Gap Estim Creat Clear Calc Estimated GFR POC Glucose 179 H Random Glucose Lactic Acid Lactic Acid Fup @ 2Hr Lactic Acid Fup @ 4Hr Calcium Magnesium Total Bilirubin Direct Bilirubin AST ALT Alkaline Phosphatase Total Creatine Kinase Troponin I High Sens B-Natriuretic Peptide Total Protein Albumin Procalcitonin Urine Color Urine Appearance Urine pH Ur Specific [place] Urine Protein Urine Glucose (UA) Urine Ketones Urine Blood Urine Nitrite Ur Leukocyte Esterase COVID-19 (KELLIE) COVID-19 Clin Com TTE 07/22/21 - The left ventricular systolic function is severely decreased.? The visually estimated ejection fraction is between 25-30%.? ? ? - Wall motion abnormalities from underlying coronary disease.? ? - There is mildly decreased right ventricular systolic function. - No obvious valvular pathology seen on this study.? Assessment and Plan (1) Pneumonia: Status: Acute (2) Non-STEMI (non-ST elevated myocardial infarction): Status: Acute Assessment and Plan: hospital d#2 81yo M with uncontrolled DM2, likely dementia, and malnutrition with recent admission 07/08-07/12/21 for renal insufficiency, hyperglycemia, fall, and inadequate self-care.? He is presenting with subacute chest pain and found to have NSTEMI with acute HFrEF; also febrile with possible pneumonia # NSTEMI - continue heparin gtt, ASA, statin - Cardiology consultation following, likely cath Sunday # acute HFrEF - will give furosemide IV; trend I/O + wt + monitor BMP + BNP + Mg # acute hypoxic resp failure - due to CHF + pneumonia, wean O2 as tolerated # pneumonia - ceftriaxone/doxycycline d#2, follow BCx, trend PCT # DM2, uncontrolled, complicated by hypoglycemia - correction-dose lispro # moderate protein-calorie malnutrition - supplements # H pylori gastritis - will need combination therapy with metronidazole/doxycycline/PPI/bismuth; will start after NSTEMI + pneumonia have resolved # VTE ppx - on UFH infusion Quality Stroke Does the patient have a stroke diagnosis?: No VTE Prior VTE?: No VTE Risk Level:: Medical - moderate - high VTE Device Contraindication: N/A - Device Ordered VTE Drug Contraindication: N/A - Med Ordered
[2021-07-23] MEDS: Furosemide 40 MG/4 ML VIAL IVPUSH ×2 (10:34→18:16)
--- NOTE | 2021-07-23 11:14 | PM.PNCARD ---
Subjective Subjective Date of Service: 07/23/21 Interval history: States that he has throat pain, not clear if this is anginal or not. Review of Systems Review of Systems Yes all other systems are reviewed and are negative Cardiovascular: Reports as per HPI, Reports no additional cardiovascular complaints, Denies acrocyanosis, Denies cool extremities, Denies painful fingertips, Reports chest pain, Reports chest pain at rest, Denies diaphoresis, Denies syncope, Denies irregular heart rhythm, Denies claudication, Denies leg edema, Denies lightheadedness, Denies palpitations and Denies dyspnea Respiratory: Denies dyspnea Denies syncope Endocrine: Denies palpitations Physical Exam Vital Signs: Last Vital Signs Temp 98.7 F 07/23/21 05:26 Pulse 72 07/23/21 06:57 Resp 18 07/23/21 06:57 BP 110/55 L 07/23/21 05:26 Pulse Ox 97 07/23/21 06:57 Body Mass Index 21.7 Const General: cooperative and no acute distress HENMI Other: Unremarkable Neck Neck: Yes normal visual inspection Chest Chest palpation & inspection: normal inspection of the chest Resp Auscultation: crackles and rhonchi (Bilateral.) Cardio Other: no obvious murmurs Jugular venous distension: no JVD Palpation: normal PMI GI Palpation (GI): Soft to palpation Back/Spine/Pelvis Other: unremarkable Skin General skin exam: no rashes or lesions noted Neuro Cranial nerves: Yes Other cranial nerve findings present Extrem General: Yes no clubbing, cyanosis or edema Psych Mental Status: other Results Labs and Meds Result diagrams: 07/23/21 04:59 07/23/21 04:59 Lab results: Laboratory Results - last 24 hr 07/22/21 07/22/21 07/22/21 13:57 13:57 13:57 WBC 12.6 H RBC 3.52 L Hgb 11.2 L Hct 33.9 L MCV 96.3 MCH 31.8 MCHC 33.0 RDW 14.6 Plt Count 248 D MPV 10.5 Immature Gran % (Auto) 0.6 H Neut % (Auto) 76.6 H Lymph % (Auto) 17.1 L [place] % (Auto) 5.4 Eos % (Auto) 0.2 Baso % (Auto) 0.1 Lymph # (Auto) 2.2 [place] # (Auto) 0.7 Eos # (Auto) 0.0 Baso # (Auto) 0.0 Abs Immat Gran (auto) 0.07 H Absolute Neuts (auto) 9.7 H Absolute Nucleated RBC 0.000 Nucleated RBC % (auto) 0.0 PT INR APTT PTT (Heparin Protocol) Sodium 144 Potassium 4.3 Chloride 104 Carbon Dioxide 31 H Anion Gap 13 BUN 23 H D Creatinine 0.79 Estim Creat Clear Calc 69.7 Estimated GFR > 60 POC Glucose Random Glucose 71 D Lactic Acid Lactic Acid Fup @ 2Hr Lactic Acid Fup @ 4Hr Calcium 9.5 D Magnesium Total Bilirubin 0.6 Direct Bilirubin 0.2 AST 68 H ALT 62 H Alkaline Phosphatase 85 D Total Creatine Kinase 208 H D Troponin I High Sens 714.8 H* D B-Natriuretic Peptide 1550 H Total Protein 6.6 Albumin 3.6 Procalcitonin Urine Color Urine Appearance Urine pH Ur Specific [place] Urine Protein Urine Glucose (UA) Urine Ketones Urine Blood Urine Nitrite Ur Leukocyte Esterase COVID-19 ([facility]) COVID-19 [employer] 07/22/21 07/22/21 07/22/21 13:57 15:12 15:12 WBC RBC Hgb Hct MCV MCH MCHC RDW Plt Count MPV Immature Gran % (Auto) Neut % (Auto) Lymph % (Auto) [place] % (Auto) Eos % (Auto) Baso % (Auto) Lymph # (Auto) [place] # (Auto) Eos # (Auto) Baso # (Auto) Abs Immat Gran (auto) Absolute Neuts (auto) Absolute Nucleated RBC Nucleated RBC % (auto) PT 10.5 INR 0.9 APTT 28.5 PTT (Heparin Protocol) Sodium Potassium Chloride Carbon Dioxide Anion Gap BUN Creatinine Estim Creat Clear Calc Estimated GFR POC Glucose Random Glucose Lactic Acid 3.0 H* Lactic Acid Fup @ 2Hr Lactic Acid Fup @ 4Hr Calcium Magnesium Total Bilirubin Direct Bilirubin AST ALT Alkaline Phosphatase Total Creatine Kinase Troponin I High Sens B-Natriuretic Peptide Total Protein Albumin Procalcitonin 0.07 Urine Color Urine Appearance Urine pH Ur Specific [place] Urine Protein Urine Glucose (UA) Urine Ketones Urine Blood Urine Nitrite Ur Leukocyte Esterase COVID-19 ([facility]) COVID-19 [employer] 07/22/21 07/22/21 07/22/21 15:12 17:02 17:41 WBC RBC Hgb Hct MCV MCH MCHC RDW Plt Count MPV Immature Gran % (Auto) Neut % (Auto) Lymph % (Auto) [place] % (Auto) Eos % (Auto) Baso % (Auto) Lymph # (Auto) [place] # (Auto) Eos # (Auto) Baso # (Auto) Abs Immat Gran (auto) Absolute Neuts (auto) Absolute Nucleated RBC Nucleated RBC % (auto) PT INR APTT PTT (Heparin Protocol) Sodium Potassium Chloride Carbon Dioxide Anion Gap BUN Creatinine Estim Creat Clear Calc Estimated GFR POC Glucose Random Glucose Lactic Acid Lactic Acid Fup @ 2Hr 2.6 H* Lactic Acid Fup @ 4Hr Calcium Magnesium Total Bilirubin Direct Bilirubin AST ALT Alkaline Phosphatase Total Creatine Kinase Troponin I High Sens 732.6 H* B-Natriuretic Peptide Total Protein Albumin Procalcitonin Urine Color Urine Appearance Urine pH Ur Specific [place] Urine Protein Urine Glucose (UA) Urine Ketones Urine Blood Urine Nitrite Ur Leukocyte Esterase COVID-19 ([facility]IE) Negative COVID-[employer] See Note 07/22/21 07/22/21 07/22/21 17:47 18:26 20:17 WBC RBC Hgb Hct MCV MCH MCHC RDW Plt Count MPV Immature Gran % (Auto) Neut % (Auto) Lymph % (Auto) [place] % (Auto) Eos % (Auto) Baso % (Auto) Lymph # (Auto) [place] # (Auto) Eos # (Auto) Baso # (Auto) Abs Immat Gran (auto) Absolute Neuts (auto) Absolute Nucleated RBC Nucleated RBC % (auto) PT INR APTT PTT (Heparin Protocol) Sodium Potassium Chloride Carbon Dioxide Anion Gap BUN Creatinine Estim Creat Clear Calc Estimated GFR POC Glucose 49 L* 85 Random Glucose Lactic Acid Lactic Acid Fup @ 2Hr Lactic Acid Fup @ 4Hr 2.6 H* Calcium Magnesium Total Bilirubin Direct Bilirubin AST ALT Alkaline Phosphatase Total Creatine Kinase Troponin I High Sens B-Natriuretic Peptide Total Protein Albumin Procalcitonin Urine Color Urine Appearance Urine pH Ur Specific [place] Urine Protein Urine Glucose (UA) Urine Ketones Urine Blood Urine Nitrite Ur Leukocyte Esterase COVID-19 ([facility]IE) COVID-[employer] 07/22/21 07/22/21 07/22/21 21:49 22:54 23:41 WBC RBC Hgb Hct MCV MCH MCHC RDW Plt Count MPV Immature Gran % (Auto) Neut % (Auto) Lymph % (Auto) [place] % (Auto) Eos % (Auto) Baso % (Auto) Lymph # (Auto) [place] # (Auto) Eos # (Auto) Baso # (Auto) Abs Immat Gran (auto) Absolute Neuts (auto) Absolute Nucleated RBC Nucleated RBC % (auto) PT INR APTT PTT (Heparin Protocol) 68.9 Sodium Potassium Chloride Carbon Dioxide Anion Gap BUN Creatinine Estim Creat Clear Calc Estimated GFR POC Glucose 131 H Random Glucose Lactic Acid Lactic Acid Fup @ 2Hr Lactic Acid Fup @ 4Hr Calcium Magnesium Total Bilirubin Direct Bilirubin AST ALT Alkaline Phosphatase Total Creatine Kinase Troponin I High Sens B-Natriuretic Peptide Total Protein Albumin Procalcitonin Urine Color YELLOW Urine Appearance CLEAR Urine pH 6.0 Ur Specific [place] 1.025 Urine Protein TRACE Urine Glucose (UA) 100 H Urine Ketones NEG Urine Blood NEG Urine Nitrite NEG Ur Leukocyte Esterase NEG COVID-19 (KELLIE) [employer] 07/23/21 07/23/21 07/23/21 04:59 04:59 04:59 WBC 11.5 H RBC 3.09 L Hgb 10.0 L Hct 29.9 L MCV 96.8 MCH 32.4 MCHC 33.4 RDW 14.7 Plt Count 203 MPV 10.8 Immature Gran % (Auto) Neut % (Auto) Lymph % (Auto) [place] % (Auto) Eos % (Auto) Baso % (Auto) Lymph # (Auto) [place] # (Auto) Eos # (Auto) Baso # (Auto) Abs Immat Gran (auto) Absolute Neuts (auto) Absolute Nucleated RBC 0.000 Nucleated RBC % (auto) 0.0 PT INR APTT PTT (Heparin Protocol) Sodium 140 Potassium 4.3 Chloride 104 Carbon Dioxide 26 Anion Gap 14 BUN 22 H Creatinine 0.80 Estim Creat Clear Calc 65.1 Estimated GFR > 60 POC Glucose Random Glucose 170 H D Lactic Acid Lactic Acid Fup @ 2Hr Lactic Acid Fup @ 4Hr Calcium 8.5 D Magnesium 2.0 Total Bilirubin Direct Bilirubin AST ALT Alkaline Phosphatase Total Creatine Kinase Troponin I High Sens B-Natriuretic Peptide 2955 H Total Protein Albumin Procalcitonin Urine Color Urine Appearance Urine pH Ur Specific [place] Urine Protein Urine Glucose (UA) Urine Ketones Urine Blood Urine Nitrite Ur Leukocyte Esterase COVID-19 (KELLIE) COVID-[employer] 07/23/21 07/23/21 04:59 07:34 WBC RBC Hgb Hct MCV MCH MCHC RDW Plt Count MPV Immature Gran % (Auto) Neut % (Auto) Lymph % (Auto) [place] % (Auto) Eos % (Auto) Baso % (Auto) Lymph # (Auto) [place] # (Auto) Eos # (Auto) Baso # (Auto) Abs Immat Gran (auto) Absolute Neuts (auto) Absolute Nucleated RBC Nucleated RBC % (auto) PT INR APTT PTT (Heparin Protocol) 75.9 Sodium Potassium Chloride Carbon Dioxide Anion Gap BUN Creatinine Estim Creat Clear Calc Estimated GFR POC Glucose 179 H Random Glucose Lactic Acid Lactic Acid Fup @ 2Hr Lactic Acid Fup @ 4Hr Calcium Magnesium Total Bilirubin Direct Bilirubin AST ALT Alkaline Phosphatase Total Creatine Kinase Troponin I High Sens B-Natriuretic Peptide Total Protein Albumin Procalcitonin Urine Color Urine Appearance Urine pH Ur Specific [place] Urine Protein Urine Glucose (UA) Urine Ketones Urine Blood Urine Nitrite Ur Leukocyte Esterase COVID-19 ([facility]LLIE) COVID-19 Clin Com Imaging Radiologist's impression: Impressions Chest X-Ray 07/22/21 15:02 IMPRESSION: Abnormal exam. Diffuse opacities which could represent diffuse areas of infiltrate. Of course pulmonary edema would be in the differential. Correlation recommended clinically Progress Note: A&P Assessment and plan (1) Non-STEMI (non-ST elevated myocardial infarction): Status: Acute (2) Acute systolic (congestive) heart failure: Status: Acute Assessment and Plan: Elevated troponins noted. Echocardiogram with markedly diminished LVEF and evidence of wall motion abnormalities consistent with underlying coronary artery disease. Possible recent STEMI and now having congestive heart failure +/-NSTEMI. Clinically, in heart failure. May use IV diuretics. IV heparin, aspirin, statins. Eventually diagnostic cardiac catheterization. Fall Risk Details Current Medications: Current Medications Acetaminophen (Acetaminophen 325 Mg Tablet) 650 mg PO Q6H PRN PRN Reason: Pain, Mild (Pain Scale 1-3) Last Admin: 07/22/21 23:51 Dose: 650 mg Documented by: Aspirin (Aspirin 81 Mg Tab.Chew) 81 mg PO DAILY [facility] Last Admin: 07/23/21 09:13 Dose: 81 mg Documented by: Atorvastatin Calcium (Atorvastatin Calcium 80 Mg Tablet) 80 mg PO BEDTIME [facility] Last Admin: 07/22/21 20:00 Dose: 80 mg Documented by: Dextrose (Dextrose 50 % 25 Gm/50 Ml Vial) 25 gm IVPUSH Q15M PRN; Protocol PRN Reason: per Hypoglycemia Standing Ord. Last Admin: 07/22/21 18:05 Dose: 25 gm Documented by: Furosemide (Furosemide 40 Mg/4 Ml Vial) 40 mg IVPUSH BID@0900,1800 [facility]; Protocol Glucose (Glucose Gel 15 Gm Gel..Gram.) 15 gm PO Q15M PRN; Protocol PRN Reason: per Hypoglycemia Standing Ord. Heparin Sodium (Porcine) (Heparin Sodium,Porcine 5,000 Unit/Ml Vial) 2,600 unit 40 unit/kg (2600 unit) IVPUSH PROTOCOL BOLUS PRN; Protocol PRN Reason: 40 unit/kg - Heparin Protocol Heparin Sodium (Porcine) (Heparin Sodium,Porcine 5,000 Unit/Ml Vial) 5,200 unit 80 unit/kg (5200 unit) IVPUSH PROTOCOL BOLUS PRN; Protocol PRN Reason: 80 unit/kg - Heparin Protocol Heparin Sodium/Sodium Chloride () 25,000 unit in 250 mls @ 0 mls/hr IVCONT .Q0M [facility]; Protocol Doxycycline Hyclate 100 mg/ (Sodium Chloride) 250 mls @ 166.67 mls/hr IV Q12H [facility] Last Infusion: 07/23/21 06:58 Dose: Infused Documented by: Ceftriaxone Sodium 1 gm/ (Sodium Chloride) 50 mls @ 100 mls/hr IV Q24H [facility] Last Admin: 07/22/21 18:33 Dose: Not Given Documented by: Insulin Human Lispro (Insulin Lispro 100 Unit/Ml 3 Ml Vial) 0 unit SUBCUT QIDACHS [facility]; Protocol Last Admin: 07/23/21 07:38 Dose: Not Given Documented by: Ondansetron HCl (Ondansetron Hcl 4 Mg/2 Ml Vial) 4 mg IVPUSH Q8H PRN PRN Reason: Nausea and Vomiting Sodium Chloride (0.9 % Sodium Chloride Flush 3 Ml Syringe) 3 ml IVFLUSH QSHIFT [facility] Last Admin: 07/23/21 06:59 Dose: Not Given Documented by: Time Spent With Patient Time: Total time spent is greater than 50% in coordination of care (as documented) at patient's floor/unit and/or counseling patient: Time with patient: less than 15 minutes Progress Note: Quality Stroke Does the patient have a stroke diagnosis?: No Procedures Date of Service Date of Service: 07/23/21
[2021-07-23 11:45] LABS: Glucose, Whole Blood 253 mg/dL (60-115)
[2021-07-23 11:58] LABS: PTT Heparin Drip 64.7 SEC (53-77.9)
[2021-07-23] MEDS: Insulin Lispro 100 UNIT/ML 3 ML VIAL SUBCUT ×2 (11:59→17:02)
--- NOTE | 2021-07-23 14:03 | MHC.CM.PN ---
CM SPOKE TO PTS SON/HCP, SAMUEL ([phone]) WHO REPORTS WHEN THE PT DISCHAR[place] [facility] [place] HE WENT TO [place] FOR [place] BUT WAS ONLY THERE A FEW DAYS. SAMUEL REPORTS WHEN THE PT RETURNED HOME HE WAS GOOD FOR A FEW DAYS AND THEN BEGAN COMPLAINING OF THIS COMPLETELY DIFFERENT SYMPTOM. SAMUEL CONFIRMS PT LIVES ALONE BUT SAMUEL CHECKS IN WHENEVER HE CAN AND ASSISTS MUCH POSSIBLE. SAMUEL REPORTS HE WILL BE IN THIS EVENING TO SEE PT AND REQUESTS HE BE CALLED TOMORROW HE IS WORKING A 12 HR SHIFT TODAY. CM WILL CONTACT SAMUEL AGAIN TOMORROW TO COMPLETE [employer] PLAN TBD, LIKELY HOME FAMILY TO TRANSPORT
[2021-07-23 16:24] LABS: Glucose, Whole Blood 263 mg/dL (60-115)
[2021-07-23] MEDS: Heparin Sodium,Porcine/1/2NS 25,000 UNIT/250 ML IV.SOLN 7.76 UNIT IVCONT (16:58)
[2021-07-23] MEDS: cefTRIAXone sodium 1 GM in 0.9 % Sodium Chloride 50 ML IV (17:02)
[2021-07-23] MEDS: Acetaminophen 325 MG TABLET 650 MG PO (17:08)
[2021-07-23] MEDS: Atorvastatin Calcium 80 MG TABLET PO (21:17)
[2021-07-23 21:36] LABS: Glucose, Whole Blood 105 mg/dL (60-115)
[2021-07-24] VITALS (8 sets, daily range): BP systolic 92–106; BP diastolic 50–60; PULSE 63–74; RESP 16–18; TEMP 36.2–37.7; O2SAT 90–99
[2021-07-24] MEDS: Acetaminophen 325 MG TABLET 650 MG PO ×2 (03:44→18:13)
[2021-07-24] MEDS: Doxycycline Hyclate 100 MG in 0.9 % Sodium Chloride 250 ML 166.67 MG IV ×2 (05:26→17:59)
[2021-07-24 06:46] LABS: PTT Heparin Drip 41.8 SEC (53-77.9)
[2021-07-24] MEDS: Heparin Sodium,Porcine 5,000 UNIT/ML VIAL 2600 UNIT IVPUSH (06:56)
[2021-07-24 06:59] LABS: B Type Natriuretic Peptide 2749 pg/mL (<100)
[2021-07-24 07:03] LABS: Anion Gap 12 (12-20); Blood Urea Nitrogen 29 mg/dL (9-16); Calcium 8.4 mg/dL (8.4-10.2); Carbon Dioxide 29 mmol/L (22-29); Chloride 103 mmol/L (96-108); Creatinine Clr Calc Pharmacy 57.9; Estimated Glomerular Filt Rate > 60; Glucose Random 224 mg/dL (60-115); Potassium 3.9 mmol/L (3.3-5.1); Sodium 140 mmol/L (135-145)
[2021-07-24 07:16] LABS: Procalcitonin 0.13 ng/mL
[2021-07-24 07:29] LABS: Glucose, Whole Blood 210 mg/dL (60-115)
[2021-07-24] MEDS: Furosemide 40 MG/4 ML VIAL IVPUSH ×2 (08:04→17:59)
[2021-07-24] MEDS: Aspirin 81 MG TAB.CHEW PO (08:05)
[2021-07-24] MEDS: 0.9 % Sodium Chloride Flush 3 ML SYRINGE IVFLUSH ×2 (08:05→20:01)
[2021-07-24] MEDS: Insulin Lispro 100 UNIT/ML 3 ML VIAL SUBCUT ×3 (08:05→20:01)
[2021-07-24 11:25] LABS: Glucose, Whole Blood 118 mg/dL (60-115)
--- NOTE | 2021-07-24 12:33 | P.PNCA_ITS ---
Subjective Subjective Date of Service: 07/24/21 Interval history: Very sleepy. Denies any new complaints. Review of Systems Review of Systems Yes all other systems are reviewed and are negative Cardiovascular: Reports as per HPI, Reports no additional cardiovascular complaints, Denies acrocyanosis, Denies cool extremities, Denies painful fingertips, Reports chest pain, Reports chest pain at rest, Denies diaphoresis, Denies syncope, Denies irregular heart rhythm, Denies claudication, Denies leg edema, Denies lightheadedness, Denies palpitations and Denies dyspnea Respiratory: Denies dyspnea Denies syncope Endocrine: Denies palpitations Physical Exam Vital Signs: Last Vital Signs Temp 97.7 F 07/24/21 11:48 Pulse 70 07/24/21 11:48 Resp 18 07/24/21 11:48 BP 98/50 L 07/24/21 11:48 Pulse Ox 98 07/24/21 11:48 Body Mass Index 21.7 Const General: cooperative and no acute distress HENMT Other: Unremarkable Neck Neck: Yes normal visual inspection Chest Chest palpation & inspection: normal inspection of the chest Resp Auscultation: crackles Cardio Other: no obvious murmurs Jugular venous distension: no JVD Palpation: normal PMI GI Palpation (GI): Soft to palpation Back/Spine/Pelvis Other: unremarkable Skin General skin exam: no rashes or lesions noted Neuro Cranial nerves: Yes Other cranial nerve findings present Extrem General: Yes no clubbing, cyanosis or edema Psych Mental Status: other Results Labs and Meds Result diagrams: 07/23/21 04:59 07/24/21 06:09 Lab results: Laboratory Results - last 24 hr 07/23/21 07/23/21 07/24/21 16:19 21:32 06:09 PTT (Heparin Protocol) Sodium Potassium Chloride Carbon Dioxide Anion Gap BUN Creatinine Estim Creat Clear Calc Estimated GFR POC Glucose 263 H 105 Random Glucose Calcium Magnesium B-Natriuretic Peptide Procalcitonin 0.13 07/24/21 07/24/21 07/24/21 06:09 06:09 06:09 PTT (Heparin Protocol) 41.8 L D Sodium 140 Potassium 3.9 Chloride 103 Carbon Dioxide 29 Anion Gap 12 BUN 29 H Creatinine 0.90 Estim Creat Clear Calc 57.9 Estimated GFR > 60 POC Glucose Random Glucose 224 H Calcium 8.4 Magnesium 2.0 B-Natriuretic Peptide 2749 H Procalcitonin 07/24/21 07/24/21 07:22 11:14 PTT (Heparin Protocol) Sodium Potassium Chloride Carbon Dioxide Anion Gap BUN Creatinine Estim Creat Clear Calc Estimated GFR POC Glucose 210 H 118 H Random Glucose Calcium Magnesium B-Natriuretic Peptide Procalcitonin Progress Note: A&P Assessment and plan (1) Non-STEMI (non-ST elevated myocardial infarction): Status: Acute (2) Acute systolic (congestive) heart failure: Status: Acute Assessment and Plan: Elevated troponins noted. Echocardiogram with markedly diminished LVEF and evidence of wall motion abnormalities consistent with underlying coronary artery disease. Possible recent STEMI and now having congestive heart failure +/- NSTEMI. Clinically, in heart failure. May use IV diuretics. IV heparin, aspirin, statins. Will discuss with interventional about cardiac c atheterization. Fall Risk Details Current Medications: Current Medications Acetaminophen (Acetaminophen 325 Mg Tablet) 650 mg PO Q6H PRN PRN Reason: Pain, Mild (Pain Scale 1-3) Last Admin: 07/24/21 03:44 Dose: 650 mg Documented by: Aspirin (Aspirin 81 Mg Tab.Chew) 81 mg PO DAILY [facility] Last Admin: 07/24/21 08:05 Dose: 81 mg Documented by: Atorvastatin Calcium (Atorvastatin Calcium 80 Mg Tablet) 80 mg PO BEDTIME [facility] Last Admin: 07/23/21 21:17 Dose: 80 mg Documented by: Dextrose (Dextrose 50 % 25 Gm/50 Ml Vial) 25 gm IVPUSH Q15M PRN; Protocol PRN Reason: per Hypoglycemia Standing Ord. Last Admin: 07/22/21 18:05 Dose: 25 gm Documented by: Furosemide (Furosemide 40 Mg/4 Ml Vial) 40 mg IVPUSH BID@0900,1800 [facility]; Protocol Last Admin: 07/24/21 08:04 Dose: 40 mg Documented by: Glucose (Glucose Gel 15 Gm Gel..Gram.) 15 gm PO Q15M PRN; Protocol PRN Reason: per Hypoglycemia Standing Ord. Heparin Sodium (Porcine) (Heparin Sodium,Porcine 5,000 Unit/Ml Vial) 2,600 unit 40 unit/kg (2600 unit) IVPUSH PROTOCOL BOLUS PRN; Protocol PRN Reason: 40 unit/kg - Heparin Protocol Last Admin: 07/24/21 06:56 Dose: 2,600 unit Documented by: Heparin Sodium (Porcine) (Heparin Sodium,Porcine 5,000 Unit/Ml Vial) 5,200 unit 80 unit/kg (5200 unit) IVPUSH PROTOCOL BOLUS PRN; Protocol PRN Reason: 80 unit/kg - Heparin Protocol Heparin Sodium/Sodium Chloride () 25,000 unit in 250 mls @ 0 mls/hr IVCONT .Q0M [facility]; Protocol Last Titration: 07/24/21 06:57 Dose: 14 units/kg/hr, 9.06 mls/hr Documented by: Doxycycline Hyclate 100 mg/ (Sodium Chloride) 250 mls @ 166.67 mls/hr IV Q12H [facility] Last Infusion: 07/24/21 07:01 Dose: Infused Documented by: Ceftriaxone Sodium 1 gm/ (Sodium Chloride) 50 mls @ 100 mls/hr IV Q24H [facility] Last Infusion: 07/23/21 18:30 Dose: Infused Documented by: Insulin Human Lispro (Insulin Lispro 100 Unit/Ml 3 Ml Vial) 0 unit SUBCUT QIDACHS [facility]; Protocol Last Admin: 07/24/21 11:39 Dose: Not Given Documented by: Ondansetron HCl (Ondansetron Hcl 4 Mg/2 Ml Vial) 4 mg IVPUSH Q8H PRN PRN Reason: Nausea and Vomiting Sodium Chloride (0.9 % Sodium Chloride Flush 3 Ml Syringe) 3 ml IVFLUSH QSHIFT [facility] Last Admin: 07/24/21 08:05 Dose: 3 ml Documented by: Time Spent With Patient Time: Total time spent is greater than 50% in coordination of care (as documented) at patient's floor/unit and/or counseling patient: Time with patient: less than 15 minutes Progress Note: Quality Stroke Does the patient have a stroke diagnosis?: No Procedures Date of Service Date of Service: 07/24/21
--- NOTE | 2021-07-24 13:19 | MHC.CM.PN ---
with interpertaor attempted to see pt he was very sleepy called and spoke with pts sonand hcp alfredito alejandroqhligia explins that pt was recently dcd from [facility] and was home only 3 days before he was readmitted he was sent home with a vna he will get let us know the agencey dc plan is for pt ,to return juan carlos e with vna pt lives alone with support from family
--- NOTE | 2021-07-24 13:25 | HO.PM.IMPN ---
Subjective Subjective Date of Service: 07/24/21 Interval History: Denies chest pain or dyspnea Review of Systems Review of Systems: Yes all other systems are reviewed and are negative Physical Exam Vital Signs: Vital Signs: Last Vital Signs Temp 97.7 F 07/24/21 11:48 Pulse 70 07/24/21 11:48 Resp 18 07/24/21 11:48 BP 98/50 L 07/24/21 11:48 Pulse Ox 98 07/24/21 11:48 Body Mass Index 21.7 Gen: in no acute distress HEENT: sclera anicteric, edentulous, moist membranes Neck: supple Lungs:? no resp distress, coarse inspiratory crackles at bases bilaterally Heart: regular rate and rhythm, no murmurs Abd: soft, non-tender, non-distended Ext: no edema Skin: warm/well-perfused Neuro: alert and oriented x3, no focal findings Psych: appropriate affect Objective Data Active Medications Acetaminophen (Acetaminophen 325 Mg Tablet) 650 mg PO Q6H PRN PRN Reason: Pain, Mild (Pain Scale 1-3) Last Admin: 07/24/21 03:44 Dose: 650 mg Documented by: MARK Aspirin (Aspirin 81 Mg Tab.Chew) 81 mg PO DAILY [facility] Last Admin: 07/24/21 08:05 Dose: 81 mg Documented by: ARMANDO Atorvastatin Calcium (Atorvastatin Calcium 80 Mg Tablet) 80 mg PO BEDTIME [facility] Last Admin: 07/23/21 21:17 Dose: 80 mg Documented by: MARK Dextrose (Dextrose 50 % 25 Gm/50 Ml Vial) 25 gm IVPUSH Q15M PRN; Protocol PRN Reason: per Hypoglycemia Standing Ord. Last Admin: 07/22/21 18:05 Dose: 25 gm Documented by: RADHA Furosemide (Furosemide 40 Mg/4 Ml Vial) 40 mg IVPUSH BID@0900,1800 [facility]; Protocol Last Admin: 07/24/21 08:04 Dose: 40 mg Documented by: ARMANDO Glucose (Glucose Gel 15 Gm Gel..Gram.) 15 gm PO Q15M PRN; Protocol PRN Reason: per Hypoglycemia Standing Ord. Heparin Sodium (Porcine) (Heparin Sodium,Porcine 5,000 Unit/Ml Vial) 2,600 unit 40 unit/kg (2600 unit) IVPUSH PROTOCOL BOLUS PRN; Protocol PRN Reason: 40 unit/kg - Heparin Protocol Last Admin: 07/24/21 06:56 Dose: 2,600 unit Documented by: MARK Heparin Sodium (Porcine) (Heparin Sodium,Porcine 5,000 Unit/Ml Vial) 5,200 unit 80 unit/kg (5200 unit) IVPUSH PROTOCOL BOLUS PRN; Protocol PRN Reason: 80 unit/kg - Heparin Protocol Heparin Sodium/Sodium Chloride () 25,000 unit in 250 mls @ 0 mls/hr IVCONT .Q0M [facility]; Protocol Last Titration: 07/24/21 06:57 Dose: 14 units/kg/hr, 9.06 mls/hr Documented by: MARK Cosigned by: ARMANDO Doxycycline Hyclate 100 mg/ (Sodium Chloride) 250 mls @ 166.67 mls/hr IV Q12H [facility] Last Infusion: 07/24/21 07:01 Dose: 0 mls/hr Documented by: MARK Ceftriaxone Sodium 1 gm/ (Sodium Chloride) 50 mls @ 100 mls/hr IV Q24H [facility] Last Infusion: 07/23/21 18:30 Dose: 0 mls/hr Documented by: ARMANDO Insulin Human Lispro (Insulin Lispro 100 Unit/Ml 3 Ml Vial) 0 unit SUBCUT QIDACHS [facility]; Protocol Last Admin: 07/24/21 11:39 Dose: Not Given Documented by: ARMANDO Non-Admin Reason: No Insulin Coverage Ondansetron HCl (Ondansetron Hcl 4 Mg/2 Ml Vial) 4 mg IVPUSH Q8H PRN PRN Reason: Nausea and Vomiting Sodium Chloride (0.9 % Sodium Chloride Flush 3 Ml Syringe) 3 ml IVFLUSH QSHIFT [facility] Last Admin: 07/24/21 08:05 Dose: 3 ml Documented by: ARMANDO Labs CBC & Chem 7: 07/23/21 04:59 07/24/21 06:09 Labs: Laboratory Results - last 24 hr 07/23/21 07/23/21 07/24/21 16:19 21:32 06:09 PTT (Heparin Protocol) Anion Gap Estim Creat Clear Calc Estimated GFR POC Glucose 263 H 105 Random Glucose Calcium Magnesium B-Natriuretic Peptide Procalcitonin 0.13 07/24/21 07/24/21 07/24/21 06:09 06:09 06:09 PTT (Heparin Protocol) 41.8 L D Anion Gap 12 Estim Creat Clear Calc 57.9 Estimated GFR > 60 POC Glucose Random Glucose 224 H Calcium 8.4 Magnesium 2.0 B-Natriuretic Peptide 2749 H Procalcitonin 07/24/21 07/24/21 07:22 11:14 PTT (Heparin Protocol) Anion Gap Estim Creat Clear Calc Estimated GFR POC Glucose 210 H 118 H Random Glucose Calcium Magnesium B-Natriuretic Peptide Procalcitonin Microbiology Microbiology Results: Microbiology 07/22/21 17:02 Blood Culture - Preliminary Blood - Venous No growth after 24 hours. 07/22/21 15:12 Blood Culture - Preliminary Blood - Venous No growth after 24 hours. Assessment and Plan (1) Pneumonia: Status: Acute (2) Non-STEMI (non-ST elevated myocardial infarction): Status: Acute Assessment and Plan: hospital d#3 81yo M with uncontrolled DM2, likely dementia, and malnutrition with recent admission 07/08-07/12/21 for renal insufficiency, hyperglycemia, fall, and inadequate self-care.? He is presenting with subacute chest pain and found to have NSTEMI with acute HFrEF; also was febrile and being treated for possible pneumonia # NSTEMI - continue heparin gtt, ASA, statin - Cardiology following, likely transfer for cath tomorrow # acute HFrEF - continue furosemide IV # acute hypoxic resp failure - due to CHF + pneumonia - wean O2 as tolerated # pneumonia - ceftriaxone/doxycycline d#3, follow BCx, trend PCT # DM2, uncontrolled [A1c >14], complicated by hypoglycemia - correction-dose lispro # moderate protein-calorie malnutrition - supplements # H pylori gastritis - will need combination therapy with metronidazole/doxycycline/PPI/bismuth; will start after NSTEMI + pneumonia have resolved # VTE ppx - on UFH infusion Quality Stroke Does the patient have a stroke diagnosis?: No VTE Prior VTE?: No VTE Risk Level:: Medical - moderate - high VTE Device Contraindication: N/A - Device Ordered VTE Drug Contraindication: N/A - Med Ordered
[2021-07-24 13:31] LABS: PTT Heparin Drip 80.7 SEC (53-77.9)
[2021-07-24 16:12] LABS: Glucose, Whole Blood 156 mg/dL (60-115)
[2021-07-24] MEDS: cefTRIAXone sodium 1 GM in 0.9 % Sodium Chloride 50 ML IV (16:40)
[2021-07-24] MEDS: Heparin Sodium,Porcine/1/2NS 25,000 UNIT/250 ML IV.SOLN 7.76 UNIT IVCONT (16:41)
[2021-07-24 19:54] LABS: Glucose, Whole Blood 279 mg/dL (60-115)
[2021-07-24] MEDS: Atorvastatin Calcium 80 MG TABLET PO (20:01)
[2021-07-24 20:04] LABS: PTT Heparin Drip 55.8 SEC (53-77.9)
[2021-07-25] VITALS (8 sets, daily range): BP systolic 96–117; BP diastolic 51–59; PULSE 63–70; RESP 16–20; TEMP 36.4–37.3; O2SAT 90–98; BMI 21.7
[2021-07-25 02:13] LABS: PTT Heparin Drip 51.7 SEC (53-77.9)
[2021-07-25] MEDS: Heparin Sodium,Porcine 5,000 UNIT/ML VIAL 2600 UNIT IVPUSH (02:33)
[2021-07-25] MEDS: Acetaminophen 325 MG TABLET 650 MG PO (06:16)
[2021-07-25] MEDS: Doxycycline Hyclate 100 MG in 0.9 % Sodium Chloride 250 ML 166.67 MG IV ×2 (06:17→17:42)
[2021-07-25 07:42] LABS: Glucose, Whole Blood 173 mg/dL (60-115)
[2021-07-25] MEDS: Furosemide 40 MG/4 ML VIAL IVPUSH (07:59)
[2021-07-25] MEDS: Insulin Lispro 100 UNIT/ML 3 ML VIAL SUBCUT ×4 (07:59→21:04)
[2021-07-25] MEDS: Aspirin 81 MG TAB.CHEW PO (07:59)
[2021-07-25 08:47] LABS: Hematocrit 27.6 % (42-52); Mean Corpuscular HGB Conc 32.6 g/dl (31.0-36.0); Mean Corpuscular Hemoglobin 31.8 pg (27.0-33.0); Mean Corpuscular Volume 97.5 fL (80-98); Mean Platelet Volume 11.1 fL (9.4-12.4); Platelet Count 231 X10*3/uL (160-400); Red Blood Count 2.83 X10*6/uL (4.60-5.80); Red Cell Distribution Width 14.2 % (11.0-16.0); White Blood Count 7.2 X10*3/uL (4.8-10.8)
[2021-07-25 08:55] LABS: PTT Heparin Drip 85.4 SEC (53-77.9)
[2021-07-25 09:43] LABS: Anion Gap 16 (12-20); Blood Urea Nitrogen 30 mg/dL (9-16); Calcium 8.2 mg/dL (8.4-10.2); Carbon Dioxide 25 mmol/L (22-29); Chloride 104 mmol/L (96-108); Estimated Glomerular Filt Rate > 60; Glucose Random 178 mg/dL (60-115); Potassium 3.5 mmol/L (3.3-5.1); Sodium 141 mmol/L (135-145)
[2021-07-25 09:56] LABS: Procalcitonin 0.11 ng/mL
--- NOTE | 2021-07-25 09:58 | P.CDIC_ITS ---
CDI Concurrent Query Documentation Clarification: PHYSICIAN'S DOCUMENTATION REQUEST Date of Query: 07/25/21 0959 Patient Name: Eugene Delarosa Admit Date: 07/22/21 Dear Doctor, A review of the medical record indicates additional documentation may be needed. Please review below and update the documentation accordingly. Clinical Indicators: Risk Factors/Clinical Indicators/Treatments T 100.8 WBC 12.6 LA 3.0 CXR: Bilateral infiltrate H&P: Pneumonia Acute Hypoxic Respiratory Failure Please clarify which, if any, of the following is the most likely etiology of the above symptoms and treatment rendered: * Sepsis, present on admission * Systemic manifestations of infection, with 2 or more SIRS criteria which include: - Fever > 100.4F or hypothermia < 96.8 F - Leukocytosis - WBC > 12,000 or leukopenia, WBC < 4,000 or > 10% bands - Tachycardia > 90 beats/minute - Tachypnea - RR > 20 breaths/minute or PaCO2 < 32mmHg (Source: Merck Manual 2013) * Indicate the known or suspected organism * Indicate the known or suspected underlying infection, such as UTI, pneumonia, or cellulitis * Indicate if a suspected bacterial infection of unknown source * Indicate if associated with an implanted device such as a F/C, PICC line, orthopedic hardware, etc. * Severe Sepsis * Sepsis with associated acute organ dysfunction, such as renal or respiratory failure * Other (please specify) * Unable to determine Use of terms such as suspected, likely, concern for, or probable (associated with a specific diagnosis that is being evaluated, monitored, or treated as if it exists) are acceptable and can be coded in the inpatient setting, when documented at the time of discharge. Thank you, Katie Trinidad , BARI Extension: [phone] Please use your independent medical judgment in providing your response. THIS QUERY IS PART OF THE PERMANENT MEDICAL RECORD Provider Response: Other Other Diagnosis: Not septic Does not meet SIRS criteria Temperature criteria is T>100.9, NOT T>100.4
[2021-07-25 11:39] LABS: Glucose, Whole Blood 224 mg/dL (60-115)
--- NOTE | 2021-07-25 12:03 | P.PNCA_ITS ---
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 Denying any symptoms right now. Laying flat in bed without any shortness of breath. Physical Exam Vital Signs: Last Vital Signs Temp 99.2 F 07/25/21 11:52 Pulse 69 07/25/21 11:52 Resp 20 07/25/21 11:52 BP 96/51 L 07/25/21 11:52 Pulse Ox 91 L 07/25/21 11:52 Body Mass Index 21.7 GENERAL APPEARANCE: in no acute distress, pleasant. NECK: no carotid bruit, no jugular venous distention. SKIN: no suspicious lesions, warm and dry. HEART: no murmurs, regular rate and rhythm. LUNGS: clear to auscultation bilaterally. ABDOMEN: soft, nontender. EXTREMITIES: no edema. PERIPHERAL PULSES: equal. NEUROLOGIC: No gross deficits, AAO X 3 Results Labs and Meds Result diagrams: 07/25/21 08:39 07/25/21 08:39 Lab results: Laboratory Results - last 24 hr 07/24/21 07/24/21 07/24/21 13:00 16:08 19:45 WBC RBC Hgb Hct MCV MCH MCHC RDW Plt Count MPV Absolute Nucleated RBC Nucleated RBC % (auto) PTT (Heparin Protocol) 80.7 H D 55.8 D Sodium Potassium Chloride Carbon Dioxide Anion Gap BUN Creatinine Estim Creat Clear Calc Estimated GFR POC Glucose 156 H Random Glucose Calcium Procalcitonin 07/24/21 07/25/21 07/25/21 19:47 01:38 07:15 WBC RBC Hgb Hct MCV MCH MCHC RDW Plt Count MPV Absolute Nucleated RBC Nucleated RBC % (auto) PTT (Heparin Protocol) 51.7 L Sodium Potassium Chloride Carbon Dioxide Anion Gap BUN Creatinine Estim Creat Clear Calc Estimated GFR POC Glucose 279 H 173 H Random Glucose Calcium Procalcitonin 07/25/21 07/25/21 07/25/21 08:39 08:39 08:39 WBC 7.2 RBC 2.83 L Hgb 9.0 L Hct 27.6 L MCV 97.5 MCH 31.8 MCHC 32.6 RDW 14.2 Plt Count 231 MPV 11.1 Absolute Nucleated RBC 0.000 Nucleated RBC % (auto) 0.0 PTT (Heparin Protocol) Sodium 141 Potassium 3.5 Chloride 104 Carbon Dioxide 25 Anion Gap 16 BUN 30 H Creatinine 0.84 Estim Creat Clear Calc 62.0 Estimated GFR > 60 POC Glucose Random Glucose 178 H Calcium 8.2 L Procalcitonin 0.11 07/25/21 07/25/21 08:39 11:35 WBC RBC Hgb Hct MCV MCH MCHC RDW Plt Count MPV Absolute Nucleated RBC Nucleated RBC % (auto) PTT (Heparin Protocol) 85.4 H D Sodium Potassium Chloride Carbon Dioxide Anion Gap BUN Creatinine Estim Creat Clear Calc Estimated GFR POC Glucose 224 H Random Glucose Calcium Procalcitonin Progress Note: A&P Assessment and plan (1) Acute systolic (congestive) heart failure: Status: Acute (2) Non-STEMI (non-ST elevated myocardial infarction): Status: Acute (3) Dementia: Status: Acute (4) Neuropathy: Status: Acute Assessment and Plan: 81-year-old gentleman who is presenting with acute systolic heart failure. Echocardiography has shown moderate to severely reduced ejection fraction with EF of 25-30% with wall motion abnormalities pointing to likely underlying cor onary artery disease. Clinically stable. He has no chest discomfort shortness of breath. Euvolemic right now. Can be changed to oral Lasix 40 mg once a day. Please add Plavix 75 mg once a day along with aspirin. Add lisinopril 2.5 mg once a day. Would not start beta-niels yet. I think currently does not need to be transferred to [facility] for urgent cardiac catheterization. I think we try medical management right now and reassess him as outpatient to decide that. Obviously if he has any chest discomfort or any change in status then we can rediscuss this. Thank you for allowing me to participate in the care of your patient. Please feel free to contact me if you have any questions. Fall Risk Details Current Medications: Current Medications Acetaminophen (Acetaminophen 325 Mg Tablet) 650 mg PO Q6H PRN PRN Reason: Pain, Mild (Pain Scale 1-3) Last Admin: 07/25/21 06:16 Dose: 650 mg Documented by: Aspirin (Aspirin 81 Mg Tab.Chew) 81 mg PO DAILY [facility] Last Admin: 07/25/21 07:59 Dose: 81 mg Documented by: Atorvastatin Calcium (Atorvastatin Calcium 80 Mg Tablet) 80 mg PO BEDTIME [facility] Last Admin: 07/24/21 20:01 Dose: 80 mg Documented by: Clopidogrel Bisulfate (Clopidogrel Bisulfate 75 Mg Tablet) 75 mg PO DAILY [facility] Dextrose (Dextrose 50 % 25 Gm/50 Ml Vial) 25 gm IVPUSH Q15M PRN; Protocol PRN Reason: per Hypoglycemia Standing Ord. Last Admin: 07/22/21 18:05 Dose: 25 gm Documented by: Furosemide (Furosemide 40 Mg Tablet) 40 mg PO DAILY [facility]; Protocol Glucose (Glucose Gel 15 Gm Gel..Gram.) 15 gm PO Q15M PRN; Protocol PRN Reason: per Hypoglycemia Standing Ord. Doxycycline Hyclate 100 mg/ (Sodium Chloride) 250 mls @ 166.67 mls/hr IV Q12H [facility] Last Infusion: 07/25/21 07:56 Dose: Infused Documented by: Ceftriaxone Sodium 1 gm/ (Sodium Chloride) 50 mls @ 100 mls/hr IV Q24H [facility] Last Infusion: 07/24/21 17:59 Dose: Infused Documented by: Insulin Human Lispro (Insulin Lispro 100 Unit/Ml 3 Ml Vial) 0 unit SUBCUT QIDACHS [facility]; Protocol Last Admin: 07/25/21 11:39 Dose: 4 unit Documented by: Lisinopril (Lisinopril 2.5 Mg Tablet) 2.5 mg PO DAILY [facility]; Protocol Ondansetron HCl (Ondansetron Hcl 4 Mg/2 Ml Vial) 4 mg IVPUSH Q8H PRN PRN Reason: Nausea and Vomiting Sodium Chloride (0.9 % Sodium Chloride Flush 3 Ml Syringe) 3 ml IVFLUSH QSHIFT [facility] Last Admin: 07/25/21 07:25 Dose: Not Given Documented by: Time Spent With Patient Time: Total time spent is greater than 50% in coordination of care (as documented) at patient's floor/unit and/or counseling patient: Time with patient: 25 - 35 minutes Progress Note: Quality Stroke Does the patient have a stroke diagnosis?: No Procedures Date of Service Date of Service: 07/25/21
[2021-07-25] MEDS: lisinopriL 2.5 MG TABLET PO (12:09)
[2021-07-25] MEDS: Clopidogrel Bisulfate 75 MG TABLET PO (12:09)
--- NOTE | 2021-07-25 13:05 | P.PNIM_ITS ---
Subjective Subjective Date of Service: 07/25/21 Interval History: no chest pain c/o neuropathic pain of feet Review of Systems Review of Systems: Yes all other systems are reviewed and are negative Physical Exam Vital Signs: Vital Signs: Last Vital Signs Temp 99.2 F 07/25/21 11:52 Pulse 69 07/25/21 12:09 Resp 20 07/25/21 11:52 BP 96/51 L 07/25/21 12:09 Pulse Ox 91 L 07/25/21 11:52 Body Mass Index 21.7 Gen: in no acute distress HEENT: sclera anicteric, edentulous, moist membranes Neck: supple Lungs:? no resp distress, coarse inspiratory crackles at bases bilaterally Heart: regular rate and rhythm, no murmurs Abd: soft, non-tender, non-distended Ext: no edema Skin: warm/well-perfused Neuro: alert and oriented x3, no focal findings Psych: appropriate affect Objective Data Active Medications Acetaminophen (Acetaminophen 325 Mg Tablet) 650 mg PO Q6H PRN PRN Reason: Pain, Mild (Pain Scale 1-3) Last Admin: 07/25/21 06:16 Dose: 650 mg Documented by: ANTOIC Aspirin (Aspirin 81 Mg Tab.Chew) 81 mg PO DAILY [facility] Last Admin: 07/25/21 07:59 Dose: 81 mg Documented by: NATHALY Atorvastatin Calcium (Atorvastatin Calcium 80 Mg Tablet) 80 mg PO BEDTIME [facility] Last Admin: 07/24/21 20:01 Dose: 80 mg Documented by: ANTOIC Clopidogrel Bisulfate (Clopidogrel Bisulfate 75 Mg Tablet) 75 mg PO DAILY [facility] Last Admin: 07/25/21 12:09 Dose: 75 mg Documented by: NATHALY Dextrose (Dextrose 50 % 25 Gm/50 Ml Vial) 25 gm IVPUSH Q15M PRN; Protocol PRN Reason: per Hypoglycemia Standing Ord. Last Admin: 07/22/21 18:05 Dose: 25 gm Documented by: RADHA Furosemide (Furosemide 40 Mg Tablet) 40 mg PO DAILY [facility]; Protocol Glucose (Glucose Gel 15 Gm Gel..Gram.) 15 gm PO Q15M PRN; Protocol PRN Reason: per Hypoglycemia Standing Ord. Doxycycline Hyclate 100 mg/ (Sodium Chloride) 250 mls @ 166.67 mls/hr IV Q12H [facility] Last Infusion: 07/25/21 07:56 Dose: 0 mls/hr Documented by: NATHALY Ceftriaxone Sodium 1 gm/ (Sodium Chloride) 50 mls @ 100 mls/hr IV Q24H [facility] Last Infusion: 07/24/21 17:59 Dose: 0 mls/hr Documented by: DOBROB Insulin Human Lispro (Insulin Lispro 100 Unit/Ml 3 Ml Vial) 0 unit SUBCUT QIDACHS [facility]; Protocol Last Admin: 07/25/21 11:39 Dose: 4 unit Documented by: NATHALY Lisinopril (Lisinopril 2.5 Mg Tablet) 2.5 mg PO DAILY [facility]; Protocol Last Admin: 07/25/21 12:09 Dose: 2.5 mg Documented by: NATHALY Ondansetron HCl (Ondansetron Hcl 4 Mg/2 Ml Vial) 4 mg IVPUSH Q8H PRN PRN Reason: Nausea and Vomiting Sodium Chloride (0.9 % Sodium Chloride Flush 3 Ml Syringe) 3 ml IVFLUSH QSHIFT [facility] Last Admin: 07/25/21 07:25 Dose: Not Given Documented by: NATHALY Non-Admin Reason: IV Running Labs CBC & Chem 7: 07/25/21 08:39 07/25/21 08:39 Labs: Laboratory Results - last 24 hr 07/24/21 07/24/21 07/24/21 13:00 16:08 19:45 MCV MCH MCHC RDW Plt Count MPV Absolute Nucleated RBC Nucleated RBC % (auto) PTT (Heparin Protocol) 80.7 H D 55.8 D Anion Gap Estim Creat Clear Calc Estimated GFR POC Glucose 156 H Random Glucose Calcium Procalcitonin 07/24/21 07/25/21 07/25/21 19:47 01:38 07:15 MCV MCH MCHC RDW Plt Count MPV Absolute Nucleated RBC Nucleated RBC % (auto) PTT (Heparin Protocol) 51.7 L Anion Gap Estim Creat Clear Calc Estimated GFR POC Glucose 279 H 173 H Random Glucose Calcium Procalcitonin 07/25/21 07/25/21 07/25/21 08:39 08:39 08:39 MCV 97.5 MCH 31.8 MCHC 32.6 RDW 14.2 Plt Count 231 MPV 11.1 Absolute Nucleated RBC 0.000 Nucleated RBC % (auto) 0.0 PTT (Heparin Protocol) Anion Gap 16 Estim Creat Clear Calc 62.0 Estimated GFR > 60 POC Glucose Random Glucose 178 H Calcium 8.2 L Procalcitonin 0.11 07/25/21 07/25/21 08:39 11:35 MCV MCH MCHC RDW Plt Count MPV Absolute Nucleated RBC Nucleated RBC % (auto) PTT (Heparin Protocol) 85.4 H D Anion Gap Estim Creat Clear Calc Estimated GFR POC Glucose 224 H Random Glucose Calcium Procalcitonin Microbiology Microbiology Results: Microbiology 07/22/21 17:02 Blood Culture - Preliminary Blood - Venous No growth after 48 hours. 07/22/21 15:12 Blood Culture - Preliminary Blood - Venous No growth after 48 hours. Assessment and Plan (1) Pneumonia: Status: Acute (2) Non-STEMI (non-ST elevated myocardial infarction): Status: Acute Assessment and Plan: hospital d#4 81yo M with uncontrolled DM2, likely dementia, and malnutrition with recent admission 07/08-07/12/21 for renal insufficiency, hyperglycemia, fall, and inadequate self-care.? He is presenting with subacute chest pain and found to have NSTEMI with acute HFrEF; also was febrile and being treated for possible pneumonia # NSTEMI - d/c heparin gtt [48 h completed]. add clopidogrel to ASA for DAPT. continue statin. - per Cardiology, medical management at this point as pt has already developed Q waves and does not have active angina. to decide on ischemic workup as outpt. # acute HFrEF # ischemic cardiomyopathy - change IV to PO furosemide - started low-dose lisinopril - hold off on b-niels for now # acute hypoxic resp failure - due to CHF + pneumonia - wean O2 as tolerated # pneumonia - ceftriaxone/doxycycline d#4, BCx NGTD, trend PCT # normocytic anemia - check iron studies, FOBT # DM2, uncontrolled [A1c >14], complicated by hypoglycemia - correction-dose lispro # DM neuropathy - resume gabapentin # moderate protein-calorie malnutrition - supplements # H pylori gastritis - will need combination therapy with metronidazole/doxycycline/PPI/bismuth; will start after NSTEMI + pneumonia have resolved # VTE ppx - LMWH # dispo - PT consult Quality Stroke Does the patient have a stroke diagnosis?: No VTE Prior VTE?: No VTE Risk Level:: Medical - moderate - high VTE Device Contraindication: N/A - Device Ordered VTE Drug Contraindication: N/A - Med Ordered
--- NOTE | 2021-07-25 13:06 | MHC.CM.PN ---
Patient has not yet been medically cleared for dc and may need to go to [facility] for cardiac cath (Also, IV Ceftriaxone and IV Doxycycline). CM will follow for dc planning.
[2021-07-25 13:23] LABS: Immature Retic Fraction 18.9 % (2.3-13.4); Retic HGB Equivalent 26.6 pg (30.0-35.0); Reticulocyte Percent 2.7 % (0.5-1.8); Reticulocytes Absolute 0.076 X10*6/uL (0.026-0.095)
[2021-07-25 13:33] LABS: Iron 36 mcg/dL (45-160); Lactate Dehydrogenase 446 U/L (118-273); Percent Iron Saturation 17 % (15-50); Total Iron Binding Capacity 206 mcg/dL (228-428); Unsaturated Iron Binding 170 ug/dL
[2021-07-25 13:52] LABS: Ferritin 603 ng/mL (20-250)
[2021-07-25] MEDS: 0.9 % Sodium Chloride Flush 3 ML SYRINGE IVFLUSH ×2 (14:11→19:58)
[2021-07-25] MEDS: Gabapentin 100 MG CAPSULE PO ×2 (14:11→19:58)
[2021-07-25] MEDS: Enoxaparin Sodium 40 MG/0.4 ML SYRINGE SUBCUT (14:11)
[2021-07-25 15:21] LABS: PTT Heparin Drip 36.5 SEC (53-77.9)
[2021-07-25 16:17] LABS: Glucose, Whole Blood 237 mg/dL (60-115)
[2021-07-25] MEDS: cefTRIAXone sodium 1 GM in 0.9 % Sodium Chloride 50 ML IV (16:31)
[2021-07-25] MEDS: Atorvastatin Calcium 80 MG TABLET PO (19:58)
[2021-07-25 20:23] LABS: Glucose, Whole Blood 205 mg/dL (60-115)
[2021-07-26] VITALS (11 sets, daily range): BP systolic 90–103; BP diastolic 50–67; PULSE 63–107; RESP 16–20; TEMP 36.5–37.3; O2SAT 90–97
--- NOTE | 2021-07-26 | ECG_ITS ---
Test Reason : CHEST PRESSURE Blood Pressure : / mmHG Vent. Rate : 067 BPM Atrial Rate : 067 BPM P-R Int : 166 ms QRS Dur : 096 ms QT Int : 410 ms P-R-T Axes : 027 024 -03 degrees QTc Int : 433 ms Normal sinus rhythm Low voltage QRS Cannot rule out Anterior infarct (cited on or before 08-JUL-2021) Abnormal ECG When compared with ECG of 22-JUL-2021 13:39, QRS duration has increased ST elevation now present in Anterior leads T wave inversion now evident in Anterior leads Referred By: Bolivar Garrison Electronically Signed By:ROLAND DAVID
[2021-07-26] MEDS: Doxycycline Hyclate 100 MG in 0.9 % Sodium Chloride 250 ML 166.67 MG IV ×2 (05:28→15:20)
[2021-07-26 06:55] LABS: Anion Gap 14 (12-20); Blood Urea Nitrogen 30 mg/dL (9-16); Calcium 7.9 mg/dL (8.4-10.2); Carbon Dioxide 27 mmol/L (22-29); Chloride 103 mmol/L (96-108); Creatinine Clr Calc Pharmacy 60.6; Estimated Glomerular Filt Rate > 60; Glucose Random 211 mg/dL (60-115); Potassium 3.5 mmol/L (3.3-5.1); Sodium 140 mmol/L (135-145)
[2021-07-26 07:00] LABS: B Type Natriuretic Peptide 3029 pg/mL (<100)
[2021-07-26 07:24] LABS: Glucose, Whole Blood 190 mg/dL (60-115)
[2021-07-26] MEDS: 0.9 % Sodium Chloride Flush 3 ML SYRINGE IVFLUSH ×3 (07:58→22:01)
[2021-07-26] MEDS: Insulin Lispro 100 UNIT/ML 3 ML VIAL SUBCUT ×3 (07:58→22:01)
[2021-07-26] MEDS: Clopidogrel Bisulfate 75 MG TABLET PO (07:59)
[2021-07-26] MEDS: Aspirin 81 MG TAB.CHEW PO (07:59)
[2021-07-26] MEDS: Furosemide 40 MG TABLET PO (07:59)
[2021-07-26] MEDS: Gabapentin 100 MG CAPSULE PO ×2 (07:59→22:01)
[2021-07-26] MEDS: lisinopriL 2.5 MG TABLET PO (07:59)
[2021-07-26 09:06] LABS: Hematocrit 28.4 % (42-52); Hemoglobin 9.3 g/dl (14.0-18.0); Mean Corpuscular HGB Conc 32.7 g/dl (31.0-36.0); Mean Corpuscular Volume 97.6 fL (80-98); Mean Platelet Volume 11.3 fL (9.4-12.4); Platelet Count 244 X10*3/uL (160-400); Red Blood Count 2.91 X10*6/uL (4.60-5.80); Red Cell Distribution Width 14.1 % (11.0-16.0); White Blood Count 6.3 X10*3/uL (4.8-10.8)
[2021-07-26 09:24] LABS: Bilirubin Total 0.4 mg/dL (0.0-1.0); Lactate Dehydrogenase 378 U/L (118-273)
--- NOTE | 2021-07-26 10:40 | HO.PM.IMPN ---
Subjective Subjective Date of Service: 07/26/21 Interval History: interviewed in Maltese no chest pain endorses cough + mild dyspnea foot pain improved no fever Review of Systems Review of Systems: Yes all other systems are reviewed and are negative Physical Exam Vital Signs: Vital Signs: Last Vital Signs Temp 99.2 F 07/26/21 07:10 Pulse 70 07/26/21 08:14 Resp 16 07/26/21 07:10 BP 97/60 07/26/21 08:14 Pulse Ox 90 L 07/26/21 07:10 Body Mass Index 21.7 Gen: in no acute distress HEENT: sclera anicteric, edentulous, moist membranes Neck: supple Lungs:? no resp distress, coarse inspiratory crackles at bases bilaterally Heart: regular rate and rhythm, no murmurs Abd: soft, non-tender, non-distended Ext: no edema Skin: warm/well-perfused Neuro: alert and oriented x3, no focal findings Psych: appropriate affect Objective Data Active Medications Acetaminophen (Acetaminophen 325 Mg Tablet) 650 mg PO Q6H PRN PRN Reason: Pain, Mild (Pain Scale 1-3) Last Admin: 07/25/21 06:16 Dose: 650 mg Documented by: CINTHYAOIC Aspirin (Aspirin 81 Mg Tab.Chew) 81 mg PO DAILY [facility] Last Admin: 07/26/21 07:59 Dose: 81 mg Documented by: BLAIR Atorvastatin Calcium (Atorvastatin Calcium 80 Mg Tablet) 80 mg PO BEDTIME [facility] Last Admin: 07/25/21 19:58 Dose: 80 mg Documented by: SHIELA Bisoprolol Fumarate (Bisoprolol Fumarate 5 Mg Tablet) 2.5 mg PO DAILY [facility] Clopidogrel Bisulfate (Clopidogrel Bisulfate 75 Mg Tablet) 75 mg PO DAILY [facility] Last Admin: 07/26/21 07:59 Dose: 75 mg Documented by: BLAIR Dextrose (Dextrose 50 % 25 Gm/50 Ml Vial) 25 gm IVPUSH Q15M PRN; Protocol PRN Reason: per Hypoglycemia Standing Ord. Last Admin: 07/22/21 18:05 Dose: 25 gm Documented by: RADHA Enoxaparin Sodium (Enoxaparin Sodium 40 Mg/0.4 Ml Syringe) 40 mg SUBCUT Q24H [facility] Last Admin: 07/25/21 14:11 Dose: 40 mg Documented by: HO.COTEMA Furosemide (Furosemide 40 Mg/4 Ml Vial) 40 mg IVPUSH BID@0900,1800 [facility]; Protocol Last Admin: 07/26/21 10:39 Dose: Not Given Documented by: BLAIR Non-Admin Reason: already administered morning 40mg dose Gabapentin (Gabapentin 100 Mg Capsule) 100 mg PO TID [facility] Last Admin: 07/26/21 07:59 Dose: 100 mg Documented by: BLAIR Glucose (Glucose Gel 15 Gm Gel..Gram.) 15 gm PO Q15M PRN; Protocol PRN Reason: per Hypoglycemia Standing Ord. Doxycycline Hyclate 100 mg/ (Sodium Chloride) 250 mls @ 166.67 mls/hr IV Q12H [facility] Last Infusion: 07/26/21 07:06 Dose: 0 mls/hr Documented by: ANTOIC Ceftriaxone Sodium 1 gm/ (Sodium Chloride) 50 mls @ 100 mls/hr IV Q24H [facility] Last Infusion: 07/25/21 17:14 Dose: 0 mls/hr Documented by: NATHALY Insulin Human Lispro (Insulin Lispro 100 Unit/Ml 3 Ml Vial) 0 unit SUBCUT QIDACHS [facility]; Protocol Last Admin: 07/26/21 07:58 Dose: 2 unit Documented by: BLAIR Lisinopril (Lisinopril 2.5 Mg Tablet) 2.5 mg PO DAILY [facility]; Protocol Last Admin: 07/26/21 07:59 Dose: 2.5 mg Documented by: BLAIR Ondansetron HCl (Ondansetron Hcl 4 Mg/2 Ml Vial) 4 mg IVPUSH Q8H PRN PRN Reason: Nausea and Vomiting Sodium Chloride (0.9 % Sodium Chloride Flush 3 Ml Syringe) 3 ml IVFLUSH QSHIFT [facility] Last Admin: 07/26/21 07:58 Dose: 3 ml Documented by: BLAIR Labs CBC & Chem 7: 07/26/21 08:43 07/26/21 06:01 Labs: Laboratory Results - last 24 hr 07/25/21 07/25/21 07/25/21 08:39 08:39 11:35 MCV MCH MCHC RDW Plt Count MPV Absolute Nucleated RBC Nucleated RBC % (auto) Absolute Retic 0.076 Percent Retic 2.7 H Immature Retic Fraction 18.9 H Retic Hgb Equivalent 26.6 L PTT (Heparin Protocol) Anion Gap Estim Creat Clear Calc Estimated GFR POC Glucose 224 H Random Glucose Calcium Iron 36 L TIBC 206 L % Saturation 17 Unsat Iron Binding 170 Ferritin 603 H Total Bilirubin Lactate Dehydrogenase 446 H B-Natriuretic Peptide 07/25/21 07/25/21 07/25/21 15:05 16:10 20:17 MCV MCH MCHC RDW Plt Count MPV Absolute Nucleated RBC Nucleated RBC % (auto) Absolute Retic Percent Retic Immature Retic Fraction Retic Hgb Equivalent PTT (Heparin Protocol) 36.5 L D Anion Gap Estim Creat Clear Calc Estimated GFR POC Glucose 237 H 205 H Random Glucose Calcium Iron TIBC % Saturation Unsat Iron Binding Ferritin Total Bilirubin Lactate Dehydrogenase B-Natriuretic Peptide 07/26/21 07/26/21 07/26/21 06:01 06:01 07:21 MCV MCH MCHC RDW Plt Count MPV Absolute Nucleated RBC Nucleated RBC % (auto) Absolute Retic Percent Retic Immature Retic Fraction Retic Hgb Equivalent PTT (Heparin Protocol) Anion Gap 14 Estim Creat Clear Calc 60.6 Estimated GFR > 60 POC Glucose 190 H Random Glucose 211 H Calcium 7.9 L Iron TIBC % Saturation Unsat Iron Binding Ferritin Total Bilirubin Lactate Dehydrogenase B-Natriuretic Peptide 3029 H 07/26/21 07/26/21 08:43 08:43 MCV 97.6 MCH 32.0 MCHC 32.7 RDW 14.1 Plt Count 244 MPV 11.3 Absolute Nucleated RBC 0.000 Nucleated RBC % (auto) 0.0 Absolute Retic Percent Retic Immature Retic Fraction Retic Hgb Equivalent PTT (Heparin Protocol) Anion Gap Estim Creat Clear Calc Estimated GFR POC Glucose Random Glucose Calcium Iron TIBC % Saturation Unsat Iron Binding Ferritin Total Bilirubin 0.4 Lactate Dehydrogenase 378 H B-Natriuretic Peptide Assessment and Plan (1) Pneumonia: Status: Acute (2) Non-STEMI (non-ST elevated myocardial infarction): Status: Acute Assessment and Plan: hospital d#5 81yo M with uncontrolled DM2, likely dementia, and malnutrition with recent admission 07/08-07/12/21 for renal insufficiency, hyperglycemia, fall, and inadequate self-care.? He is presenting with subacute chest pain and found to have NSTEMI with acute HFrEF; also was febrile and being treated for possible pneumonia # NSTEMI - d/c heparin gtt [48 h completed]. add clopidogrel to ASA for DAPT. continue statin. - per Cardiology, medical management at this point as pt has already developed Q waves and does not have active angina. to plan schemic workup as outpt. # acute HFrEF # ischemic cardiomyopathy - will place back on IV furosemide- seems more overloaded - started low-dose lisinopril and bisoprolol for neurohormonal modulation # acute hypoxic resp failure - due to CHF + pneumonia - wean O2 as tolerated # pneumonia - ceftriaxone/doxycycline d#02/23, BCx NGTD, PCT low # normocytic anemia - check iron studies, FOBT # DM2, uncontrolled [A1c >14], complicated by hypoglycemia - correction-dose lispro # DM neuropathy - resumed gabapentin # moderate protein-calorie malnutrition - supplements # H pylori gastritis - will need combination therapy with metronidazole/doxycycline/PPI/bismuth; will start as outpt # VTE ppx - LMWH # dispo - STR Quality Stroke Does the patient have a stroke diagnosis?: No VTE Prior VTE?: No VTE Risk Level:: Medical - moderate - high VTE Device Contraindication: N/A - Device Ordered VTE Drug Contraindication: N/A - Med Ordered
[2021-07-26 11:15] LABS: Glucose, Whole Blood 188 mg/dL (60-115)
[2021-07-26] MEDS: Enoxaparin Sodium 40 MG/0.4 ML SYRINGE SUBCUT (12:04)
--- NOTE | 2021-07-26 12:20 | P.PNCA_ITS ---
Subjective Subjective Date of Service: 07/26/21 Interval history: Patient seen with sign language interpreter. Complaining of some shortness of breath and pressure in his chest. Review of Systems Review of Systems Shortness of breath. Physical Exam Vital Signs: Last Vital Signs Temp 98.2 F 07/26/21 11:20 Pulse 69 07/26/21 11:20 Resp 16 07/26/21 11:20 BP 102/56 L 07/26/21 11:20 Pulse Ox 95 07/26/21 11:20 Body Mass Index 21.7 GENERAL APPEARANCE: in no acute distress. NECK: no carotid bruit, no obvious jugular venous distention. SKIN: no suspicious lesions, warm and dry. HEART: no murmurs, regular rate and rhythm. LUNGS: Bilateral expiratory wheezes. ABDOMEN: soft, nontender. EXTREMITIES: no edema. PERIPHERAL PULSES: equal. NEUROLOGIC: No gross deficits, AAO X 3 Results Labs and Meds Result diagrams: 07/26/21 08:43 07/26/21 06:01 Lab results: Laboratory Results - last 24 hr 07/25/21 07/25/21 07/25/21 08:39 08:39 15:05 WBC RBC Hgb Hct MCV MCH MCHC RDW Plt Count MPV Absolute Nucleated RBC Nucleated RBC % (auto) Absolute Retic 0.076 Percent Retic 2.7 H Immature Retic Fraction 18.9 H Retic Hgb Equivalent 26.6 L PTT (Heparin Protocol) 36.5 L D Sodium Potassium Chloride Carbon Dioxide Anion Gap BUN Creatinine Estim Creat Clear Calc Estimated GFR POC Glucose Random Glucose Calcium Iron 36 L TIBC 206 L % Saturation 17 Unsat Iron Binding 170 Ferritin 603 H Total Bilirubin Lactate Dehydrogenase 446 H B-Natriuretic Peptide ARMANI, Polyspecific Positive ARMANI Work-up 07/25/21 07/25/21 07/26/21 16:10 20:17 06:01 WBC RBC Hgb Hct MCV MCH MCHC RDW Plt Count MPV Absolute Nucleated RBC Nucleated RBC % (auto) Absolute Retic Percent Retic Immature Retic Fraction Retic Hgb Equivalent PTT (Heparin Protocol) Sodium 140 Potassium 3.5 Chloride 103 Carbon Dioxide 27 Anion Gap 14 BUN 30 H Creatinine 0.86 Estim Creat Clear Calc 60.6 Estimated GFR > 60 POC Glucose 237 H 205 H Random Glucose 211 H Calcium 7.9 L Iron TIBC % Saturation Unsat Iron Binding Ferritin Total Bilirubin Lactate Dehydrogenase B-Natriuretic Peptide ARMANI, Polyspecific Positive ARMANI Work-up 07/26/21 07/26/21 07/26/21 06:01 07:21 08:43 WBC 6.3 RBC 2.91 L Hgb 9.3 L Hct 28.4 L MCV 97.6 MCH 32.0 MCHC 32.7 RDW 14.1 Plt Count 244 MPV 11.3 Absolute Nucleated RBC 0.000 Nucleated RBC % (auto) 0.0 Absolute Retic Percent Retic Immature Retic Fraction Retic Hgb Equivalent PTT (Heparin Protocol) Sodium Potassium Chloride Carbon Dioxide Anion Gap BUN Creatinine Estim Creat Clear Calc Estimated GFR POC Glucose 190 H Random Glucose Calcium Iron TIBC % Saturation Unsat Iron Binding Ferritin Total Bilirubin Lactate Dehydrogenase B-Natriuretic Peptide 3029 H ARMANI, Polyspecific Positive ARMANI Work-up 07/26/21 07/26/21 07/26/21 08:43 08:43 11:06 WBC RBC Hgb Hct MCV MCH MCHC RDW Plt Count MPV Absolute Nucleated RBC Nucleated RBC % (auto) Absolute Retic Percent Retic Immature Retic Fraction Retic Hgb Equivalent PTT (Heparin Protocol) Sodium Potassium Chloride Carbon Dioxide Anion Gap BUN Creatinine Estim Creat Clear Calc Estimated GFR POC Glucose 188 H Random Glucose Calcium Iron TIBC % Saturation Unsat Iron Binding Ferritin Total Bilirubin 0.4 Lactate Dehydrogenase 378 H B-Natriuretic Peptide ARMANI, Polyspecific NEGATIVE Positive ARMANI Work-up Not Reportable Imaging Radiologist's impression: Impressions Chest X-Ray 07/26/21 08:33 IMPRESSION: Increasing bilateral diffuse airspace disease and pleural effusions. Differential would include CHF and pneumonia. Progress Note: A&P Assessment and plan (1) Acute systolic (congestive) heart failure: Status: Acute (2) Non-STEMI (non-ST elevated myocardial infarction): Status: Acute Assessment and Plan: 81-year-old gentleman with dementia, chronic kidney disease and peripheral neuropathy who presented for acute onset congestive heart failure. Echocardiography showed moderate to severely reduced ejection fraction with wall motion abnormalities consistent with ischemic heart disease. Complaining of some shortness of breath and chest tightness today. He was started on beta-niels bisoprolol 2.5 mg today. Agree with IV diuretics. Would repeat EKG. Continue aspirin Plavix. Continue lisinopril 2.5 mg once a day. I am dec reasing the bisoprolol to 1.25 mg daily. Thank you for allowing me to participate in the care of your patient. Please feel free to contact me if you have any questions. Fall Risk Details Current Medications: Current Medications Acetaminophen (Acetaminophen 325 Mg Tablet) 650 mg PO Q6H PRN PRN Reason: Pain, Mild (Pain Scale 1-3) Last Admin: 07/25/21 06:16 Dose: 650 mg Documented by: Aspirin (Aspirin 81 Mg Tab.Chew) 81 mg PO DAILY [facility] Last Admin: 07/26/21 07:59 Dose: 81 mg Documented by: Atorvastatin Calcium (Atorvastatin Calcium 80 Mg Tablet) 80 mg PO BEDTIME [facility] Last Admin: 07/25/21 19:58 Dose: 80 mg Documented by: Bisoprolol Fumarate (Bisoprolol Fumarate 5 Mg Tablet) 1.25 mg PO DAILY [facility] Clopidogrel Bisulfate (Clopidogrel Bisulfate 75 Mg Tablet) 75 mg PO DAILY [facility] Last Admin: 07/26/21 07:59 Dose: 75 mg Documented by: Dextrose (Dextrose 50 % 25 Gm/50 Ml Vial) 25 gm IVPUSH Q15M PRN; Protocol PRN Reason: per Hypoglycemia Standing Ord. Last Admin: 07/22/21 18:05 Dose: 25 gm Documented by: Enoxaparin Sodium (Enoxaparin Sodium 40 Mg/0.4 Ml Syringe) 40 mg SUBCUT Q24H [facility] Last Admin: 07/26/21 12:04 Dose: 40 mg Documented by: Furosemide (Furosemide 40 Mg/4 Ml Vial) 40 mg IVPUSH BID@0900,1800 [facility]; Protocol Last Admin: 07/26/21 10:39 Dose: Not Given Documented by: Gabapentin (Gabapentin 100 Mg Capsule) 100 mg PO TID [facility] Last Admin: 07/26/21 07:59 Dose: 100 mg Documented by: Glucose (Glucose Gel 15 Gm Gel..Gram.) 15 gm PO Q15M PRN; Protocol PRN Reason: per Hypoglycemia Standing Ord. Doxycycline Hyclate 100 mg/ (Sodium Chloride) 250 mls @ 166.67 mls/hr IV Q12H [facility] Stop: 07/27/21 07:29 Last Infusion: 07/26/21 07:06 Dose: Infused Documented by: Ceftriaxone Sodium 1 gm/ (Sodium Chloride) 50 mls @ 100 mls/hr IV Q24H [facility] Stop: 07/26/21 17:29 Last Infusion: 07/25/21 17:14 Dose: Infused Documented by: Insulin Human Lispro (Insulin Lispro 100 Unit/Ml 3 Ml Vial) 0 unit SUBCUT QIDACHS [facility]; Protocol Last Admin: 07/26/21 12:02 Dose: 2 unit Documented by: Lisinopril (Lisinopril 2.5 Mg Tablet) 2.5 mg PO DAILY [facility]; Protocol Last Admin: 07/26/21 07:59 Dose: 2.5 mg Documented by: Ondansetron HCl (Ondansetron Hcl 4 Mg/2 Ml Vial) 4 mg IVPUSH Q8H PRN PRN Reason: Nausea and Vomiting Sodium Chloride (0.9 % Sodium Chloride Flush 3 Ml Syringe) 3 ml IVFLUSH QSHIFT [facility] Last Admin: 07/26/21 07:58 Dose: 3 ml Documented by: Time Spent With Patient Time: Total time spent is greater than 50% in coordination of care (as documented) at patient's floor/unit and/or counseling patient: Time with patient: 25 - 35 minutes Progress Note: Quality Stroke Does the patient have a stroke diagnosis?: No Procedures Date of Service Date of Service: 07/26/21
[2021-07-26] MEDS: Isosorbide Mononitrate 30 MG TAB.ER.24H 15 MG PO (15:19)
[2021-07-26] MEDS: cefTRIAXone sodium 1 GM in 0.9 % Sodium Chloride 50 ML IV (15:20)
--- NOTE | 2021-07-26 15:21 | MHC.CM.PN ---
spoke with son alfredito [phone] wgho is in agreement with physical therapys recommendation for str ..first choicer Fahad ARELLANO
[2021-07-26] MEDS: Furosemide 40 MG/4 ML VIAL IVPUSH (16:35)
[2021-07-26 16:36] LABS: Glucose, Whole Blood 137 mg/dL (60-115)
[2021-07-26 16:44] LABS: Glucose, Whole Blood 155 mg/dL (60-115)
[2021-07-26 21:10] LABS: Glucose, Whole Blood 188 mg/dL (60-115)
[2021-07-26] MEDS: Atorvastatin Calcium 80 MG TABLET PO (22:01)
[2021-07-27 03:31] VITALS: BP 100/55; PULSE 67; RESP 20; TEMP 36.8; O2SAT 94
[2021-07-27 05:47] LABS: COVID-19 Test Negative (Negative)
[2021-07-27] MEDS: Doxycycline Hyclate 100 MG in 0.9 % Sodium Chloride 250 ML 166.67 MG IV (06:02)
[2021-07-27 06:57] LABS: Anion Gap 12 (12-20); Blood Urea Nitrogen 25 mg/dL (9-16); Calcium 7.9 mg/dL (8.4-10.2); Carbon Dioxide 28 mmol/L (22-29); Chloride 103 mmol/L (96-108); Creatinine Clr Calc Pharmacy 63.5; Estimated Glomerular Filt Rate > 60; Glucose Random 240 mg/dL (60-115); Magnesium 1.9 mg/dL (1.6-2.6); Potassium 3.6 mmol/L (3.3-5.1); Sodium 139 mmol/L (135-145)
[2021-07-27 07:03] LABS: Hemoglobin 8.4 g/dl (14.0-18.0); Mean Corpuscular HGB Conc 33.6 g/dl (31.0-36.0); Mean Corpuscular Hemoglobin 32.4 pg (27.0-33.0); Mean Corpuscular Volume 96.5 fL (80-98); Mean Platelet Volume 11.3 fL (9.4-12.4); Platelet Count 251 X10*3/uL (160-400); Red Blood Count 2.59 X10*6/uL (4.60-5.80); Red Cell Distribution Width 14.2 % (11.0-16.0)
[2021-07-27 07:04] LABS: B Type Natriuretic Peptide 2521 pg/mL (<100)
[2021-07-27 07:28] LABS: Glucose, Whole Blood 201 mg/dL (60-115)
[2021-07-27 07:47] VITALS: BP 119/63; PULSE 68; RESP 18; TEMP 36.8; O2SAT 97
--- NOTE | 2021-07-27 07:49 | PC.NURSE ---
Patient did not have any urine output in [place] cath overnight. Bladder scan shows 880ml, Dr. Cassidy notified and ordered straight cath. Pt straight cath for 900ml of yellow urine, tolerated well. [place] cath back in place.
[2021-07-27] MEDS: Insulin Lispro 100 UNIT/ML 3 ML VIAL SUBCUT ×4 (07:59→20:35)
[2021-07-27] MEDS: lisinopriL 2.5 MG TABLET PO (11:00)
[2021-07-27] MEDS: 0.9 % Sodium Chloride Flush 3 ML SYRINGE IVFLUSH ×3 (11:00→23:50)
[2021-07-27] MEDS: Gabapentin 100 MG CAPSULE PO ×3 (11:01→20:30)
[2021-07-27] MEDS: Clopidogrel Bisulfate 75 MG TABLET PO (11:01)
[2021-07-27] MEDS: Aspirin 81 MG TAB.CHEW PO (11:01)
[2021-07-27] MEDS: Bisoprolol Fumarate 5 MG TABLET 1.25 MG PO (11:01)
[2021-07-27] MEDS: Furosemide 40 MG/4 ML VIAL IVPUSH ×2 (11:02→16:59)
[2021-07-27] MEDS: Isosorbide Mononitrate 30 MG TAB.ER.24H 15 MG PO (11:02)
[2021-07-27 11:14] LABS: Glucose, Whole Blood 181 mg/dL (60-115)
[2021-07-27 11:20] VITALS: BP 108/56; PULSE 66; RESP 18; TEMP 36.7; O2SAT 98
[2021-07-27] MEDS: Enoxaparin Sodium 40 MG/0.4 ML SYRINGE SUBCUT (11:38)
--- NOTE | 2021-07-27 11:56 | MHC.CLN ---
F/U PT PREVIOUS DX WITH MODERATE MALNUTRITION R/T LIMITED PO INTAKE WITH MILDLY DEPLETED SUBCUTANEOUS FAT AND MUSCLE MASS PT DOES NOT TRIGGER FOR SIGNIFICANT WT LOSS AT THIS TIME DIET RX: 2200DM CARDIAC CHOPPED-APPROPRIATE PO INTAKE 100% X 1 MEAL NOTED AIC ON PREVIOUS ADMISSION >14% PT RECEIVING GLUCERNA TID PROVIDES 711KCALS (37% EST KCAL NEEDS), 30G PROTEIN (46% EST PROTEIN NEEDS) MONITOR PO INTAKE CLOSELY
--- NOTE | 2021-07-27 14:00 | HO.PM.IMPN ---
Subjective Subjective Date of Service: 07/27/21 Interval History: Interviewed in Arabic Endorses dyspnea + wheezing but not chest pain/pressure Review of Systems Review of Systems: Yes all other systems are reviewed and are negative Physical Exam Vital Signs: Vital Signs: Last Vital Signs Temp 98.0 F 07/27/21 11:20 Pulse 66 07/27/21 11:20 Resp 18 07/27/21 11:20 BP 108/56 L 07/27/21 11:20 Pulse Ox 98 07/27/21 11:20 Body Mass Index 21.7 Gen: in no acute distress HEENT: sclera anicteric, edentulous, moist membranes Neck: supple Lungs:? no resp distress, coarse inspiratory crackles at bases bilaterally Heart: regular rate and rhythm, no murmurs Abd: soft, non-tender, non-distended Ext: no edema Skin: warm/well-perfused Neuro: alert and oriented x3, no focal findings Psych: appropriate affect Objective Data Active Medications Acetaminophen (Acetaminophen 325 Mg Tablet) 650 mg PO Q6H PRN PRN Reason: Pain, Mild (Pain Scale 1-3) Last Admin: 07/25/21 06:16 Dose: 650 mg Documented by: CINTHYAOIC Aspirin (Aspirin 81 Mg Tab.Chew) 81 mg PO DAILY [facility] Last Admin: 07/27/21 11:01 Dose: 81 mg Documented by: STIVEN Atorvastatin Calcium (Atorvastatin Calcium 80 Mg Tablet) 80 mg PO BEDTIME [facility] Last Admin: 07/26/21 22:01 Dose: 80 mg Documented by: TEE Bisoprolol Fumarate (Bisoprolol Fumarate 5 Mg Tablet) 1.25 mg PO DAILY [facility] Last Admin: 07/27/21 11:01 Dose: 1.25 mg Documented by: STIVEN Clopidogrel Bisulfate (Clopidogrel Bisulfate 75 Mg Tablet) 75 mg PO DAILY [facility] Last Admin: 07/27/21 11:01 Dose: 75 mg Documented by: STIVEN Dextrose (Dextrose 50 % 25 Gm/50 Ml Vial) 25 gm IVPUSH Q15M PRN; Protocol PRN Reason: per Hypoglycemia Standing Ord. Last Admin: 07/22/21 18:05 Dose: 25 gm Documented by: RADHA Enoxaparin Sodium (Enoxaparin Sodium 40 Mg/0.4 Ml Syringe) 40 mg SUBCUT Q24H [facility] Last Admin: 07/27/21 11:38 Dose: 40 mg Documented by: STIVEN Furosemide (Furosemide 40 Mg/4 Ml Vial) 40 mg IVPUSH BID@0900,1800 [facility]; Protocol Last Admin: 07/27/21 11:02 Dose: 40 mg Documented by: STIVEN Gabapentin (Gabapentin 100 Mg Capsule) 100 mg PO TID [facility] Last Admin: 07/27/21 11:01 Dose: 100 mg Documented by: STIVEN Glucose (Glucose Gel 15 Gm Gel..Gram.) 15 gm PO Q15M PRN; Protocol PRN Reason: per Hypoglycemia Standing Ord. Insulin Human Lispro (Insulin Lispro 100 Unit/Ml 3 Ml Vial) 0 unit SUBCUT QIDACHS [facility]; Protocol Last Admin: 07/27/21 11:38 Dose: 2 unit Documented by: STIVEN Isosorbide Mononitrate (Isosorbide Mononitrate 30 Mg Tab.Er.24h) 15 mg PO DAILY [facility]; Protocol Last Admin: 07/27/21 11:02 Dose: 15 mg Documented by: STIVEN Lisinopril (Lisinopril 2.5 Mg Tablet) 2.5 mg PO DAILY [facility]; Protocol Last Admin: 07/27/21 11:00 Dose: 2.5 mg Documented by: STIVEN Ondansetron HCl (Ondansetron Hcl 4 Mg/2 Ml Vial) 4 mg IVPUSH Q8H PRN PRN Reason: Nausea and Vomiting Sodium Chloride (0.9 % Sodium Chloride Flush 3 Ml Syringe) 3 ml IVFLUSH QSHIFT [facility] Last Admin: 07/27/21 11:00 Dose: 3 ml Documented by: STIVEN Labs CBC & Chem 7: 07/27/21 06:09 07/27/21 06:09 Labs: Laboratory Results - last 24 hr 07/26/21 07/26/21 07/26/21 16:05 16:33 21:07 MCV MCH MCHC RDW Plt Count MPV Absolute Nucleated RBC Nucleated RBC % (auto) Anion Gap Estim Creat Clear Calc Estimated GFR POC Glucose 155 H 137 H 188 H Random Glucose Calcium Magnesium B-Natriuretic Peptide COVID-19 ([facility]) COVID-19 Clin Com 07/27/21 07/27/21 07/27/21 04:30 06:09 06:09 MCV 96.5 MCH 32.4 MCHC 33.6 RDW 14.2 Plt Count 251 MPV 11.3 Absolute Nucleated RBC 0.000 Nucleated RBC % (auto) 0.0 Anion Gap 12 Estim Creat Clear Calc 63.5 Estimated GFR > 60 POC Glucose Random Glucose 240 H Calcium 7.9 L Magnesium 1.9 B-Natriuretic Peptide COVID-19 ([facility]) Negative COVID-19 Clin Com See Note 07/27/21 07/27/21 07/27/21 06:09 07:10 11:07 MCV MCH MCHC RDW Plt Count MPV Absolute Nucleated RBC Nucleated RBC % (auto) Anion Gap Estim Creat Clear Calc Estimated GFR POC Glucose 201 H 181 H Random Glucose Calcium Magnesium B-Natriuretic Peptide 2521 H COVID-19 ([facility]) COVID-19 Clin Com Assessment and Plan (1) Pneumonia: Status: Acute (2) Non-STEMI (non-ST elevated myocardial infarction): Status: Acute Assessment and Plan: hospital d#6 81yo M with uncontrolled DM2, likely dementia, and malnutrition with recent admission 07/08-07/12/21 for renal insufficiency, hyperglycemia, fall, and inadequate self-care.? He is presenting with subacute chest pain and found to have NSTEMI with acute HFrEF; also was febrile and being treated for possible pneumonia # NSTEMI - d/c'ed heparin gtt [48 h completed]. added clopidogrel to ASA for DAPT. continue statin. - per Cardiology, medical management at this point as pt has already developed Q waves and does not have active angina. to plan schemic workup as outpt. # acute HFrEF # ischemic cardiomyopathy - continue IV diuresis - continue lisinopril + bisprolol; also started on Imdur # normocytic anemia - replete iron - check FOBT; caution with DAPT + LMWH - if Hb drops <8, consider transfusion # acute hypoxic resp failure - due to CHF + pneumonia - wean O2 as tolerated # pneumonia - completed 5d of ceftriaxone/doxycycline, BCx negative, PCT low # DM2, uncontrolled [A1c >14], complicated by hypoglycemia - correction-dose lispro # DM neuropathy - continuegabapentin # moderate protein-calorie malnutrition - supplements # H pylori gastritis - found on biopsy from EGD last admission - will need combination therapy with metronidazole/doxycycline/PPI/bismuth; will start upon discharge # VTE ppx - LMWH # dispo - STR Quality Stroke Does the patient have a stroke diagnosis?: No VTE Prior VTE?: No VTE Risk Level:: Medical - moderate - high VTE Device Contraindication: N/A - Device Ordered VTE Drug Contraindication: N/A - Med Ordered
[2021-07-27 14:20] LABS: Troponin-I High Sensitivity 718.6 ng/L (<3.5-35.0)
--- NOTE | 2021-07-27 15:18 | PM.PNCARD ---
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 He is saying he was having some breathing problems and chest tightness yesterday. He is saying he is feeling better today. Monitor read checked and has been flat. EKG done which showed mild ST elevation anteriorly but he Q-waves in the precordial leads. Clinically he was in heart failure and his diuretics were resumed yesterday. He was also noticed to be wheezing after starting bisoprolol. Physical Exam Vital Signs: Last Vital Signs Temp 98.0 F 07/27/21 11:20 Pulse 66 07/27/21 11:20 Resp 18 07/27/21 11:20 BP 108/56 L 07/27/21 11:20 Pulse Ox 98 07/27/21 11:20 Body Mass Index 21.7 GENERAL APPEARANCE: in no acute distress. NECK: no carotid bruit, no obvious jugular venous distention. SKIN: no suspicious lesions, warm and dry. HEART: no murmurs, regular rate and rhythm. LUNGS:? Bilateral crackles at bases. ABDOMEN: soft, nontender. EXTREMITIES: no edema. PERIPHERAL PULSES: equal. Results Labs and Meds Result diagrams: 07/27/21 06:09 07/27/21 06:09 Lab results: Laboratory Results - last 24 hr 07/26/21 07/26/21 07/26/21 16:05 16:33 21:07 WBC RBC Hgb Hct MCV MCH MCHC RDW Plt Count MPV Absolute Nucleated RBC Nucleated RBC % (auto) Sodium Potassium Chloride Carbon Dioxide Anion Gap BUN Creatinine Estim Creat Clear Calc Estimated GFR POC Glucose 155 H 137 H 188 H Random Glucose Calcium Magnesium Troponin I High Sens B-Natriuretic Peptide COVID-19 ([facility]) COVID-19 Clin Com 07/27/21 07/27/21 07/27/21 04:30 06:09 06:09 WBC 6.0 RBC 2.59 L Hgb 8.4 L Hct 25.0 L MCV 96.5 MCH 32.4 MCHC 33.6 RDW 14.2 Plt Count 251 MPV 11.3 Absolute Nucleated RBC 0.000 Nucleated RBC % (auto) 0.0 Sodium 139 Potassium 3.6 Chloride 103 Carbon Dioxide 28 Anion Gap 12 BUN 25 H Creatinine 0.82 Estim Creat Clear Calc 63.5 Estimated GFR > 60 POC Glucose Random Glucose 240 H Calcium 7.9 L Magnesium 1.9 Troponin I High Sens B-Natriuretic Peptide COVID-19 ([facility]) Negative COVID-19 Clin Com See Note 07/27/21 07/27/21 07/27/21 06:09 07:10 11:07 WBC RBC Hgb Hct MCV MCH MCHC RDW Plt Count MPV Absolute Nucleated RBC Nucleated RBC % (auto) Sodium Potassium Chloride Carbon Dioxide Anion Gap BUN Creatinine Estim Creat Clear Calc Estimated GFR POC Glucose 201 H 181 H Random Glucose Calcium Magnesium Troponin I High Sens B-Natriuretic Peptide 2521 H COVID-19 ([facility]) COVID-19 Clin Com 07/27/21 13:14 WBC RBC Hgb Hct MCV MCH MCHC RDW Plt Count MPV Absolute Nucleated RBC Nucleated RBC % (auto) Sodium Potassium Chloride Carbon Dioxide Anion Gap BUN Creatinine Estim Creat Clear Calc Estimated GFR POC Glucose Random Glucose Calcium Magnesium Troponin I High Sens 718.6 H* B-Natriuretic Peptide COVID-19 ([facility]) COVID-19 Clin Com Progress Note: A&P Assessment and plan (1) Acute systolic (congestive) heart failure: Status: Acute (2) Non-STEMI (non-ST elevated myocardial infarction): Status: Acute (3) Dementia: Status: Acute Assessment and Plan: 81-year-old gentleman with dementia, chronic kidney disease, diabetes and peripheral neuropathy with poor functional status who presented with acute systolic heart failure. It appears he had previous SC and presented late. Echocardiography has shown monitor severely reduced ejection fraction. He has been started on neurohormonal blockade. He continues to have some symptoms. He is still congested. I think we should continue diuretics IV. Decreased his bisoprolol to 1.25 mg daily. If BP stable and increase Imdur to 30 mg once a day. He has been progressively becoming more anemic. His hemoglobin has dropped to 8.4 today. I think he may need blood transfusion because he is quite symptomatic from heart failure right now. If in fact he gets a blood transfusion then he should get an extra dose of diuretics. We need to understand why he is he becoming anemic and he may need GI input. I think we may have to stop his aspirin and leave him on Plavix only. 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 He clearly has presented late and ST elevations in mid June on the EKG. Currently he has congestive heart failure due to SC. He is also anemic and no intervention will be possible in case we find significant coronary disease. I think we medically treat him as we were. Thank you for allowing me to participate in the care of your patient. Please feel free to contact me if you have any questions. Fall Risk Details Current Medications: Current Medications Acetaminophen (Acetaminophen 325 Mg Tablet) 650 mg PO Q6H PRN PRN Reason: Pain, Mild (Pain Scale 1-3) Last Admin: 07/25/21 06:16 Dose: 650 mg Documented by: Albuterol Sulfate (Albuterol Sulfate (0.083%) 2.5 Mg/3 Ml Vial.Neb) 2.5 mg INHALE Q2H PRN PRN Reason: Shortness of Breath/Wheezing Aspirin (Aspirin 81 Mg Tab.Chew) 81 mg PO DAILY [facility] Last Admin: 07/27/21 11:01 Dose: 81 mg Documented by: Atorvastatin Calcium (Atorvastatin Calcium 80 Mg Tablet) 80 mg PO BEDTIME [facility] Last Admin: 07/26/21 22:01 Dose: 80 mg Documented by: Bisoprolol Fumarate (Bisoprolol Fumarate 5 Mg Tablet) 1.25 mg PO DAILY [facility] Last Admin: 07/27/21 11:01 Dose: 1.25 mg Documented by: Clopidogrel Bisulfate (Clopidogrel Bisulfate 75 Mg Tablet) 75 mg PO DAILY [facility] Last Admin: 07/27/21 11:01 Dose: 75 mg Documented by: Dextrose (Dextrose 50 % 25 Gm/50 Ml Vial) 25 gm IVPUSH Q15M PRN; Protocol PRN Reason: per Hypoglycemia Standing Ord. Last Admin: 07/22/21 18:05 Dose: 25 gm Documented by: Enoxaparin Sodium (Enoxaparin Sodium 40 Mg/0.4 Ml Syringe) 40 mg SUBCUT Q24H [facility] Last Admin: 07/27/21 11:38 Dose: 40 mg Documented by: Ferrous Sulfate (Ferrous Sulfate 324 Mg Tablet.Dr) 324 mg PO DAILY [facility] Furosemide (Furosemide 40 Mg/4 Ml Vial) 40 mg IVPUSH BID@0900,1800 [facility]; Protocol Last Admin: 07/27/21 11:02 Dose: 40 mg Documented by: Gabapentin (Gabapentin 100 Mg Capsule) 100 mg PO TID [facility] Last Admin: 07/27/21 15:14 Dose: 100 mg Documented by: Glucose (Glucose Gel 15 Gm Gel..Gram.) 15 gm PO Q15M PRN; Protocol PRN Reason: per Hypoglycemia Standing Ord. Insulin Human Lispro (Insulin Lispro 100 Unit/Ml 3 Ml Vial) 0 unit SUBCUT QIDACHS [facility]; Protocol Last Admin: 07/27/21 11:38 Dose: 2 unit Documented by: Isosorbide Mononitrate (Isosorbide Mononitrate 30 Mg Tab.Er.24h) 15 mg PO DAILY [facility]; Protocol Last Admin: 07/27/21 11:02 Dose: 15 mg Documented by: Lisinopril (Lisinopril 2.5 Mg Tablet) 2.5 mg PO DAILY [facility]; Protocol Last Admin: 07/27/21 11:00 Dose: 2.5 mg Documented by: Ondansetron HCl (Ondansetron Hcl 4 Mg/2 Ml Vial) 4 mg IVPUSH Q8H PRN PRN Reason: Nausea and Vomiting Sodium Chloride (0.9 % Sodium Chloride Flush 3 Ml Syringe) 3 ml IVFLUSH QSHIFT [facility] Last Admin: 07/27/21 15:14 Dose: 3 ml Documented by: Time Spent With Patient Time: Total time spent is greater than 50% in coordination of care (as documented) at patient's floor/unit and/or counseling patient: Time with patient: 25 - 35 minutes Progress Note: Quality Stroke Does the patient have a stroke diagnosis?: No Procedures Date of Service Date of Service: 07/27/21
[2021-07-27 15:27] VITALS: BP 100/57; PULSE 57; RESP 18; TEMP 36.4; O2SAT 97
[2021-07-27 15:58] LABS: Glucose, Whole Blood 221 mg/dL (60-115)
[2021-07-27 19:40] VITALS: BP 111/63; PULSE 60; RESP 18; TEMP 36.8; O2SAT 100
[2021-07-27] MEDS: Atorvastatin Calcium 80 MG TABLET PO (20:30)
[2021-07-27 20:42] LABS: Glucose, Whole Blood 193 mg/dL (60-115)
[2021-07-27] MEDS: Acetaminophen 325 MG TABLET 650 MG PO (23:09)
[2021-07-27 23:57] VITALS: BP 106/59; PULSE 63; RESP 18; TEMP 36.8; O2SAT 98
[2021-07-28] VITALS (7 sets, daily range): BP systolic 92–103; BP diastolic 47–57; PULSE 57–66; RESP 14–20; TEMP 36.3–37.1; O2SAT 94–98
[2021-07-28 06:06] LABS: Hematocrit 26.6 % (42-52); Hemoglobin 8.9 g/dl (14.0-18.0); Mean Corpuscular HGB Conc 33.5 g/dl (31.0-36.0); Mean Corpuscular Hemoglobin 32.2 pg (27.0-33.0); Mean Corpuscular Volume 96.4 fL (80-98); Mean Platelet Volume 11.4 fL (9.4-12.4); Platelet Count 285 X10*3/uL (160-400); Red Blood Count 2.76 X10*6/uL (4.60-5.80); Red Cell Distribution Width 14.1 % (11.0-16.0); White Blood Count 7.1 X10*3/uL (4.8-10.8)
[2021-07-28 06:30] LABS: B Type Natriuretic Peptide 2729 pg/mL (<100)
[2021-07-28 06:31] LABS: Anion Gap 13 (12-20); Blood Urea Nitrogen 30 mg/dL (9-16); Calcium 8.2 mg/dL (8.4-10.2); Carbon Dioxide 28 mmol/L (22-29); Chloride 104 mmol/L (96-108); Estimated Glomerular Filt Rate > 60; Glucose Random 161 mg/dL (60-115); Potassium 3.8 mmol/L (3.3-5.1); Sodium 141 mmol/L (135-145)
[2021-07-28 07:28] LABS: Glucose, Whole Blood 141 mg/dL (60-115)
[2021-07-28] MEDS: Aspirin 81 MG TAB.CHEW PO (08:01)
[2021-07-28] MEDS: Ferrous Sulfate 324 MG TABLET.DR PO (08:02)
[2021-07-28] MEDS: Gabapentin 100 MG CAPSULE PO ×3 (08:02→21:40)
[2021-07-28] MEDS: Clopidogrel Bisulfate 75 MG TABLET PO (08:02)
[2021-07-28] MEDS: 0.9 % Sodium Chloride Flush 3 ML SYRINGE IVFLUSH ×3 (08:03→21:40)
--- NOTE | 2021-07-28 09:58 | PM.PNCARD ---
Subjective Subjective Date of Service: 07/28/21 <JIN Youssef - Last Filed: 07/28/21 10:11> 07/28/21 <Bolivar Garrison MD - Last Filed: 07/28/21 11:58> Principal diagnosis: Systolic CHF, hx anterior [place], Ischemic CMP <JIN Youssef - Last Filed: 07/28/21 10:11> Interval history: Cardiology follow up for the above. Seen at 0900. Certified inspector watch assembly used. Pt awake, sitting in bed eating breakfast. Seems appropriate and answering questions. Reports not sleeping well due to reported neuropathy in lower legs. States yes when asked if he feels sob. Wearing O2 with nasal cannula, sat 97% on 2 liter. Denies have chest pains, palpitation, lightheadedness. <JIN Youssef - Last Filed: 07/28/21 10:11> Review of Systems Review of Systems As above <JIN Youssef - Last Filed: 07/28/21 10:11> Yes all other systems are reviewed and are negative <JIN Youssef - Last Filed: 07/28/21 10:11> Physical Exam Vital Signs: Last Vital Signs Temp 97.7 F 07/28/21 07:10 Pulse 59 07/28/21 08:03 Resp 18 07/28/21 07:10 BP 92/48 L 07/28/21 08:03 Pulse Ox 97 07/28/21 07:10 Body Mass Index 21.7 <JIN Youssef - Last Filed: 07/28/21 10:11> Const General: cooperative, no acute distress, alert and awake <JIN Youssef - Last Filed: 07/28/21 10:11> Neck Neck: Yes normal visual inspection and Yes no JVD <JIN Youssef Last Filed: 07/28/21 10:11> Resp Effort & Inspection: normal respiratory effort, able to speak in complete sentences and not labored <JIN Youssef - Last Filed: 07/28/21 10:11> Auscultation: rales (fine rales audible anterior and posterior, left > right), no rhonchi and no wheezes <JIN Youssef - Last Filed: 07/28/21 10:11> Cardio Jugular venous distension: JVD present <JIN Youssef - Last Filed: 07/28/21 10:11> Rate: regular rate <JIN Youssef - Last Filed: 07/28/21 10:11> Rhythm: regular rhythm <JIN Youssef - Last Filed: 07/28/21 10:11> Heart sounds: S1 normal heart sound present and S2 normal heart sound present <JIN Youssef - Last Filed: 07/28/21 10:11> Peripheral pulses: Peripheral pulses 2+ throughout <JIN Youssef - Last Filed: 07/28/21 10:11> GI Inspection: Yes normal to inspection <JIN Youssef - Last Filed: 07/28/21 10:11> Extrem Other: trace edema in lower legs bilaterally <JIN Youssef - Last Filed: 07/28/21 10:11> General: Yes normal to inspection <JIN Youssef - Last Filed: 07/28/21 10:11> Results Labs and Meds Result diagrams: : 07/28/21 05:23 07/28/21 05:23 <JIN Youssef - Last Filed: 07/28/21 10:11> Lab results: Laboratory Results - last 24 hr 07/27/21 07/27/21 07/27/21 11:07 13:14 15:47 WBC RBC Hgb Hct MCV MCH MCHC RDW Plt Count MPV Absolute Nucleated RBC Nucleated RBC % (auto) Sodium Potassium Chloride Carbon Dioxide Anion Gap BUN Creatinine Estim Creat Clear Calc Estimated GFR POC Glucose 181 H 221 H Random Glucose Calcium Magnesium Troponin I High Sens 718.6 H* B-Natriuretic Peptide 07/27/21 07/28/21 07/28/21 20:32 05:23 05:23 WBC 7.1 RBC 2.76 L Hgb 8.9 L Hct 26.6 L MCV 96.4 MCH 32.2 MCHC 33.5 RDW 14.1 Plt Count 285 MPV 11.4 Absolute Nucleated RBC 0.000 Nucleated RBC % (auto) 0.0 Sodium 141 Potassium 3.8 Chloride 104 Carbon Dioxide 28 Anion Gap 13 BUN 30 H Creatinine 0.84 Estim Creat Clear Calc 62.0 Estimated GFR > 60 POC Glucose 193 H Random Glucose 161 H Calcium 8.2 L Magnesium 2.0 Troponin I High Sens B-Natriuretic Peptide 07/28/21 07/28/21 05:23 07:11 WBC RBC Hgb Hct MCV MCH MCHC RDW Plt Count MPV Absolute Nucleated RBC Nucleated RBC % (auto) Sodium Potassium Chloride Carbon Dioxide Anion Gap BUN Creatinine Estim Creat Clear Calc Estimated GFR POC Glucose 141 H Random Glucose Calcium Magnesium Troponin I High Sens B-Natriuretic Peptide 2729 H <JIN Youssef - Last Filed: 07/28/21 10:11> Progress Note: A&P Assessment and plan (1) Acute systolic (congestive) heart failure: Status: Acute <JIN Youssef - Last Filed: 07/28/21 10:11> Assessment and Plan: Being treated for acute systolic heart failure. Echocardiogram shows EF 25-30% with positive wall motion abnormality. EKG indicative prior anterior wall KY. being diuresed with IV Lasix with fluid balance -1 L in the last day. Overall fluid balance remains positive 2 L since admission. Chest x-ray yesterday showed increased bilateral airspace disease, pleural effusion, Congestive heart failure versus pneumonia. On exam today he has fine rales noted anteriorly and posteriorly, JVD, trace edema. He needs ongoing diuresing. Continue IV Lasix. Will stop bisoprolol. Continue Imdur at 15 mg daily. Ongoing strict I&O monitoring. Close monitoring of electrolytes and kidney function with electrolyte replacement as warranted. Oxygen supplement as needed for saturation greater than 90%. We will follow <JIN Youssef - Last Filed: 07/28/21 10:11> (2) Troponin level elevated: Status: Acute <JIN Youssef - Last Filed: 07/28/21 10:11> Assessment and Plan: Troponin elevation in the 700s but has been flat since admission. This elevation is likely related to congestive heart failure. Not felt to be acute coronary syndrome. He does have evidence of old anterior KY, unclear when this occurred. Q-waves are present. No plan for cardiac catheterization at this time. Patient does have history of dementia. He denies having chest discomfort. Will continue to manage coronary disease medically. He has anemia for unknown reason. Recommend GI evaluation. Will stop daily aspirin. Continue Plavix 75 mg daily, continue Imdur, atorvastatin. Stopping beta-niels as above <JIN Youssef - Last Filed: 07/28/21 10:11> (3) Old anterior myocardial infarction: Status: Acute <JIN Youssef - Last Filed: 07/28/21 10:11> Fall Risk Details Current Medications: Current Medications Acetaminophen (Acetaminophen 325 Mg Tablet) 650 mg PO Q6H PRN PRN Reason: Pain, Mild (Pain Scale 1-3) Last Admin: 07/27/21 23:09 Dose: 650 mg Documented by: Albuterol Sulfate (Albuterol Sulfate (0.083%) 2.5 Mg/3 Ml Vial.Neb) 2.5 mg INHALE Q2H PRN PRN Reason: Shortness of Breath/Wheezing Atorvastatin Calcium (Atorvastatin Calcium 80 Mg Tablet) 80 mg PO BEDTIME [facility] Last Admin: 07/27/21 20:30 Dose: 80 mg Documented by: Clopidogrel Bisulfate (Clopidogrel Bisulfate 75 Mg Tablet) 75 mg PO DAILY [facility] Last Admin: 07/28/21 08:02 Dose: 75 mg Documented by: Dextrose (Dextrose 50 % 25 Gm/50 Ml Vial) 25 gm IVPUSH Q15M PRN; Protocol PRN Reason: per Hypoglycemia Standing Ord. Last Admin: 07/22/21 18:05 Dose: 25 gm Documented by: Enoxaparin Sodium (Enoxaparin Sodium 40 Mg/0.4 Ml Syringe) 40 mg SUBCUT Q24H [facility] Last Admin: 07/27/21 11:38 Dose: 40 mg Documented by: Ferrous Sulfate (Ferrous Sulfate 324 Mg Tablet.) 324 mg PO DAILY [facility] Last Admin: 07/28/21 08:02 Dose: 324 mg Documented by: Furosemide (Furosemide 40 Mg/4 Ml Vial) 40 mg IVPUSH BID@0900,1800 [facility]; Protocol Last Admin: 07/28/21 08:37 Dose: Not Given Documented by: Gabapentin (Gabapentin 100 Mg Capsule) 100 mg PO TID [facility] Last Admin: 07/28/21 08:02 Dose: 100 mg Documented by: Glucose (Glucose Gel 15 Gm Gel..Gram.) 15 gm PO Q15M PRN; Protocol PRN Reason: per Hypoglycemia Standing Ord. Insulin Human Lispro (Insulin Lispro 100 Unit/Ml 3 Ml Vial) 0 unit SUBCUT QIDACHS [facility]; Protocol Last Admin: 07/28/21 07:32 Dose: Not Given Documented by: Isosorbide Mononitrate (Isosorbide Mononitrate 30 Mg Tab.Er.24h) 15 mg PO DAILY [facility]; Protocol Last Admin: 07/28/21 08:03 Dose: Not Given Documented by: Lisinopril (Lisinopril 2.5 Mg Tablet) 2.5 mg PO DAILY [facility]; Protocol Last Admin: 07/28/21 08:03 Dose: Not Given Documented by: Ondansetron HCl (Ondansetron Hcl 4 Mg/2 Ml Vial) 4 mg IVPUSH Q8H PRN PRN Reason: Nausea and Vomiting Sodium Chloride (0.9 % Sodium Chloride Flush 3 Ml Syringe) 3 ml IVFLUSH QSHIFT [facility] Last Admin: 07/28/21 08:03 Dose: 3 ml Documented by: <JIN Youssef - Last Filed: 07/28/21 10:11> Time Spent With Patient Time: Total time spent is greater than 50% in coordination of care (as documented) at patient's floor/unit and/or counseling patient: 24 <JIN Youssef - Last Filed: 07/28/21 10:11> Time with patient: 15 - 24 minutes <JIN Youssef Last Filed: 07/28/21 10:11> Progress Note: Quality Stroke Does the patient have a stroke diagnosis?: No <JIN Youssef - Last Filed: 07/28/21 10:11> Procedures Date of Service Date of Service: 07/28/21 <JIN Youssef - Last Filed: 07/28/21 10:11>
[2021-07-28 11:29] LABS: Glucose, Whole Blood 206 mg/dL (60-115)
[2021-07-28] MEDS: Insulin Lispro 100 UNIT/ML 3 ML VIAL SUBCUT ×3 (12:26→21:40)
[2021-07-28] MEDS: Enoxaparin Sodium 40 MG/0.4 ML SYRINGE SUBCUT (12:27)
--- NOTE | 2021-07-28 16:30 | HO.PM.IMPN ---
Subjective Subjective Date of Service: 07/28/21 Interval History: seen and examined this morning Follow-up for NSTEMI reporting shortness of breath at night denies sob, cp at this time Review of Systems Review of Systems: Yes all other systems are reviewed and are negative Constitutional Constitutional: Denies chills and Denies fever(s) Cardiovascular Cardiovascular: Denies chest pain Respiratory Respiratory: Denies cough Gastrointestinal Gastrointestinal: Denies abdominal pain Physical Exam Vital Signs: Vital Signs: Last Vital Signs Temp 98.2 F 07/28/21 15:36 Pulse 64 07/28/21 15:36 Resp 18 07/28/21 15:36 BP 102/56 L 07/28/21 15:36 Pulse Ox 98 07/28/21 15:36 Body Mass Index 21.7 Const: Nutritional Appearance: well nourished HENMT: Head: Yes normocephalic and Yes atraumatic Eyes: Sclerae: sclerae normal Chest: Chest palpation & inspection: normal inspection of the chest Resp: Effort & Inspection: normal respiratory effort and no respiratory distress Cardio: Jugular venous distension: JVD Rate: regular rate Rhythm: regular rhythm GI: Palpation (GI): Soft to palpation and nontender Neuro: Cranial nerves: Yes CN's II-XII intact bilaterally and Yes Bilaterally intact EOM present Extrem: Other: no leg edema Objective Data Active Medications Acetaminophen (Acetaminophen 325 Mg Tablet) 650 mg PO Q6H PRN PRN Reason: Pain, Mild (Pain Scale 1-3) Last Admin: 07/27/21 23:09 Dose: 650 mg Documented by: RANDI Albuterol Sulfate (Albuterol Sulfate (0.083%) 2.5 Mg/3 Ml Vial.Neb) 2.5 mg INHALE Q2H PRN PRN Reason: Shortness of Breath/Wheezing Atorvastatin Calcium (Atorvastatin Calcium 80 Mg Tablet) 80 mg PO BEDTIME [facility] Last Admin: 07/27/21 20:30 Dose: 80 mg Documented by: RANDI Clopidogrel Bisulfate (Clopidogrel Bisulfate 75 Mg Tablet) 75 mg PO DAILY [facility] Last Admin: 07/28/21 08:02 Dose: 75 mg Documented by: CHECO Dextrose (Dextrose 50 % 25 Gm/50 Ml Vial) 25 gm IVPUSH Q15M PRN; Protocol PRN Reason: per Hypoglycemia Standing Ord. Last Admin: 07/22/21 18:05 Dose: 25 gm Documented by: RADHA Enoxaparin Sodium (Enoxaparin Sodium 40 Mg/0.4 Ml Syringe) 40 mg SUBCUT Q24H [facility] Last Admin: 07/28/21 12:27 Dose: 40 mg Documented by: CHECO Ferrous Sulfate (Ferrous Sulfate 324 Mg Tablet.Dr) 324 mg PO DAILY [facility] Last Admin: 07/28/21 08:02 Dose: 324 mg Documented by: CHECO Furosemide (Furosemide 40 Mg/4 Ml Vial) 40 mg IVPUSH BID@0900,1800 [facility]; Protocol Last Admin: 07/28/21 08:37 Dose: Not Given Documented by: MARCO-ASKEP Non-Admin Reason: Decreased Blood Pressure Gabapentin (Gabapentin 100 Mg Capsule) 100 mg PO TID [facility] Last Admin: 07/28/21 14:36 Dose: 100 mg Documented by: LOBITO Glucose (Glucose Gel 15 Gm Gel..Gram.) 15 gm PO Q15M PRN; Protocol PRN Reason: per Hypoglycemia Standing Ord. Insulin Human Lispro (Insulin Lispro 100 Unit/Ml 3 Ml Vial) 0 unit SUBCUT QIDACHS [facility]; Protocol Last Admin: 07/28/21 12:26 Dose: 4 unit Documented by: CHECO Isosorbide Mononitrate (Isosorbide Mononitrate 30 Mg Tab.Er.24h) 15 mg PO DAILY [facility]; Protocol Last Admin: 07/28/21 08:03 Dose: Not Given Documented by: CHECO Non-Admin Reason: bp low Lisinopril (Lisinopril 2.5 Mg Tablet) 2.5 mg PO DAILY [facility]; Protocol Last Admin: 07/28/21 08:03 Dose: Not Given Documented by: CHECO Non-Admin Reason: held bp low Ondansetron HCl (Ondansetron Hcl 4 Mg/2 Ml Vial) 4 mg IVPUSH Q8H PRN PRN Reason: Nausea and Vomiting Sodium Chloride (0.9 % Sodium Chloride Flush 3 Ml Syringe) 3 ml IVFLUSH QSHIFT [facility] Last Admin: 07/28/21 08:03 Dose: 3 ml Documented by: CHECO Labs CBC & Chem 7: 07/28/21 05:23 07/28/21 05:23 Labs: Laboratory Results - last 24 hr 07/27/21 07/28/21 07/28/21 20:32 05:23 05:23 MCV 96.4 MCH 32.2 MCHC 33.5 RDW 14.1 Plt Count 285 MPV 11.4 Absolute Nucleated RBC 0.000 Nucleated RBC % (auto) 0.0 Anion Gap 13 Estim Creat Clear Calc 62.0 Estimated GFR > 60 POC Glucose 193 H Random Glucose 161 H Calcium 8.2 L Magnesium 2.0 B-Natriuretic Peptide 07/28/21 07/28/21 07/28/21 05:23 07:11 11:03 MCV MCH MCHC RDW Plt Count MPV Absolute Nucleated RBC Nucleated RBC % (auto) Anion Gap Estim Creat Clear Calc Estimated GFR POC Glucose 141 H 206 H Random Glucose Calcium Magnesium B-Natriuretic Peptide 2729 H Microbiology Microbiology Results: Microbiology 07/22/21 17:02 Blood Culture - Final Blood - Venous No growth after 5 days. 07/22/21 15:12 Blood Culture - Final Blood - Venous No growth after 5 days. Assessment and Plan (1) Non-STEMI (non-ST elevated myocardial infarction): Status: Acute Assessment and Plan: hospital d#6 81yo M with uncontrolled DM2, likely dementia, and malnutrition with recent admission 07/08-07/12/21 for renal insufficiency, hyperglycemia, fall, and inadequate self-care.? He is presenting with subacute chest pain and found to have NSTEMI with acute HFrEF; also was febrile and being treated for possible pneumonia NSTEMI - d/c'ed heparin gtt [48 h completed]. continue plavix, statin. ASA d/c given anemia - per Cardiology, medical management at this point as pt has already developed Q waves and does not have active angina. - not likely candidate for invasive workup at this time. acute HFrEF ischemic cardiomyopathy BNP still elevated with signs of volume overload - continue IV diuresis as BP allows - continue lisinopril, Imdur - d/c BB normocytic anemia H/H stable but significant drop since - replete iron - check FOBT - if Hb drops <8, consider transfusion - follow CBC -will consult GI acute hypoxic resp failure down to 1L NC - due to CHF + pneumonia - wean O2 as tolerated pneumonia - completed 5d of ceftriaxone/doxycycline, BCx negative, PCT low DM2, uncontrolled [A1c >14], complicated by hypoglycemia - correction-dose lispro DM neuropathy - continue gabapentin moderate protein-calorie malnutrition - supplements H pylori gastritis - found on biopsy from EGD last admission - will need combination therapy with metronidazole/doxycycline/PPI/bismuth; will start upon discharge VTE ppx - LMWH dispo - STR attending: dr. waldron Quality Stroke Does the patient have a stroke diagnosis?: No VTE Prior VTE?: No VTE Risk Level:: Medical - moderate - high VTE Device Contraindication: N/A - Device Ordered VTE Drug Contraindication: N/A - Med Ordered
[2021-07-28 17:39] LABS: Glucose, Whole Blood 181 mg/dL (60-115)
[2021-07-28] MEDS: Furosemide 40 MG/4 ML VIAL IVPUSH (17:41)
[2021-07-28 20:33] LABS: Glucose, Whole Blood 171 mg/dL (60-115)
[2021-07-28] MEDS: Atorvastatin Calcium 80 MG TABLET PO (21:40)
[2021-07-29] VITALS (9 sets, daily range): BP systolic 93–121; BP diastolic 45–58; PULSE 67–97; RESP 18–19; TEMP 36.3–37.2; O2SAT 94–98
[2021-07-29] MEDS: Magnesium Hydrox/Alum Hydrox 30 ML ORAL.SUSP 15 ML PO (05:48)
[2021-07-29 07:21] LABS: Glucose, Whole Blood 177 mg/dL (60-115)
[2021-07-29] MEDS: Furosemide 40 MG/4 ML VIAL IVPUSH (09:02)
[2021-07-29] MEDS: 0.9 % Sodium Chloride Flush 3 ML SYRINGE IVFLUSH ×3 (09:02→21:22)
[2021-07-29] MEDS: Clopidogrel Bisulfate 75 MG TABLET PO (09:03)
[2021-07-29] MEDS: Insulin Lispro 100 UNIT/ML 3 ML VIAL SUBCUT ×4 (09:03→21:21)
[2021-07-29] MEDS: Ferrous Sulfate 324 MG TABLET.DR PO (09:03)
[2021-07-29] MEDS: Gabapentin 100 MG CAPSULE PO ×3 (09:03→21:21)
[2021-07-29] MEDS: Isosorbide Mononitrate 30 MG TAB.ER.24H 15 MG PO (09:03)
[2021-07-29 10:27] LABS: OBS Int Ctl Valid YES; OBS1 NEGATIVE (NEGATIVE)
[2021-07-29 11:09] LABS: Glucose, Whole Blood 228 mg/dL (60-115)
[2021-07-29] MEDS: Enoxaparin Sodium 40 MG/0.4 ML SYRINGE SUBCUT (11:42)
--- NOTE | 2021-07-29 11:58 | P.PNCA_ITS ---
Subjective Subjective Date of Service: 07/29/21 Principal diagnosis: Systolic CHF, hx anterior WA, Ischemic CMP Interval history: Seen with language interpreter. He is saying he is feeling better. Physical Exam Vital Signs: Last Vital Signs Temp 97.7 F 07/29/21 11:37 Pulse 70 07/29/21 11:37 Resp 18 07/29/21 11:37 BP 99/54 L 07/29/21 11:37 Pulse Ox 96 07/29/21 11:37 Body Mass Index 21.7 GENERAL APPEARANCE: in no acute distress. NECK: no carotid bruit, no obvious jugular venous distention. SKIN: no suspicious lesions, warm and dry. HEART: no murmurs, regular rate and rhythm. LUNGS:? Few crackles at bases. ABDOMEN: soft, nontender. EXTREMITIES: no edema. PERIPHERAL PULSES: equal. Results Labs and Meds Result diagrams: 07/28/21 05:23 07/28/21 05:23 Lab results: Laboratory Results - last 24 hr 07/28/21 07/28/21 07/29/21 17:35 20:24 07:17 POC Glucose 181 H 171 H 177 H Stool Occult Blood 07/29/21 07/29/21 09:10 11:02 POC Glucose 228 H Stool Occult Blood NEGATIVE Progress Note: A&P Assessment and plan (1) Old anterior myocardial infarction: Status: Acute (2) Acute systolic (congestive) heart failure: Status: Acute Assessment and Plan: 81-year-old gentleman who presented with late presenting anterior myocardial infarction with cardiomyopathy and congestive heart failure. He seems euvolemic today. I think we can start him on oral diuretics today. I would not give any bisoprolol because he could not tolerated. If BP is low then isosorbide can be stopped and lisinopril should be favored instead because it will help with cardiomyopathy and remodeling. Thank you for allowing me to participate in the care of your patient. Please feel free to contact me if you have any questions. Fall Risk Details Current Medications: Current Medications Acetaminophen (Acetaminophen 325 Mg Tablet) 650 mg PO Q6H PRN PRN Reason: Pain, Mild (Pain Scale 1-3) Last Admin: 07/27/21 23:09 Dose: 650 mg Documented by: Albuterol Sulfate (Albuterol Sulfate (0.083%) 2.5 Mg/3 Ml Vial.Neb) 2.5 mg INHALE Q2H PRN PRN Reason: Shortness of Breath/Wheezing Atorvastatin Calcium (Atorvastatin Calcium 80 Mg Tablet) 80 mg PO BEDTIME [facility] Last Admin: 07/28/21 21:40 Dose: 80 mg Documented by: Clopidogrel Bisulfate (Clopidogrel Bisulfate 75 Mg Tablet) 75 mg PO DAILY [facility] Last Admin: 07/29/21 09:03 Dose: 75 mg Documented by: Dextrose (Dextrose 50 % 25 Gm/50 Ml Vial) 25 gm IVPUSH Q15M PRN; Protocol PRN Reason: per Hypoglycemia Standing Ord. Last Admin: 07/22/21 18:05 Dose: 25 gm Documented by: Enoxaparin Sodium (Enoxaparin Sodium 40 Mg/0.4 Ml Syringe) 40 mg SUBCUT Q24H [facility] Last Admin: 07/29/21 11:42 Dose: 40 mg Documented by: Ferrous Sulfate (Ferrous Sulfate 324 Mg Tablet.) 324 mg PO DAILY [facility] Last Admin: 07/29/21 09:03 Dose: 324 mg Documented by: Furosemide (Furosemide 40 Mg/4 Ml Vial) 40 mg IVPUSH BID@0900,1800 CHRISTIANE; Prot ocol Last Admin: 07/29/21 09:02 Dose: 40 mg Documented by: Gabapentin (Gabapentin 100 Mg Capsule) 100 mg PO TID [facility] Last Admin: 07/29/21 09:03 Dose: 100 mg Documented by: Glucose (Glucose Gel 15 Gm Gel..Gram.) 15 gm PO Q15M PRN; Protocol PRN Reason: per Hypoglycemia Standing Ord. Insulin Human Lispro (Insulin Lispro 100 Unit/Ml 3 Ml Vial) 0 unit SUBCUT QIDACHS [facility]; Protocol Last Admin: 07/29/21 11:41 Dose: 4 unit Documented by: Isosorbide Mononitrate (Isosorbide Mononitrate 30 Mg Tab.Er.24h) 15 mg PO DAILY [facility]; Protocol Last Admin: 07/29/21 09:03 Dose: 15 mg Documented by: Lisinopril (Lisinopril 2.5 Mg Tablet) 2.5 mg PO DAILY [facility]; Protocol Last Admin: 07/28/21 08:03 Dose: Not Given Documented by: Ondansetron HCl (Ondansetron Hcl 4 Mg/2 Ml Vial) 4 mg IVPUSH Q8H PRN PRN Reason: Nausea and Vomiting Sodium Chloride (0.9 % Sodium Chloride Flush 3 Ml Syringe) 3 ml IVFLUSH QSHIFT [facility] Last Admin: 07/29/21 09:02 Dose: 3 ml Documented by: Time Spent With Patient Time: Total time spent is greater than 50% in coordination of care (as documented) at patient's floor/unit and/or counseling patient: Time with patient: 15 - 24 minutes Progress Note: Quality Stroke Does the patient have a stroke diagnosis?: No Procedures Date of Service Date of Service: 07/29/21
--- NOTE | 2021-07-29 12:10 | P.PNIM_ITS ---
Subjective Subjective Date of Service: 07/29/21 Interval History: Seen and examined this morning No overnight events Denies shortness of breath, chest pain Blood pressure continues to be on lower side. No dizziness Review of Systems Review of Systems: Yes all other systems are reviewed and are negative Constitutional Constitutional: Denies chills and Denies fever(s) Cardiovascular Cardiovascular: Denies chest pain Respiratory Respiratory: Denies cough Gastrointestinal Gastrointestinal: Denies abdominal pain Physical Exam Vital Signs: Vital Signs: Last Vital Signs Temp 97.7 F 07/29/21 11:37 Pulse 70 07/29/21 11:37 Resp 18 07/29/21 11:37 BP 99/54 L 07/29/21 11:37 Pulse Ox 96 07/29/21 11:37 Body Mass Index 21.7 Const: Nutritional Appearance: well nourished HENMT: Head: Yes normocephalic and Yes atraumatic Eyes: Sclerae: sclerae normal Chest: Chest palpation & inspection: normal inspection of the chest Resp: Effort & Inspection: normal respiratory effort and no respiratory distress Cardio: Jugular venous distension: no JVD Rate: regular rate Rhythm: regular rhythm GI: Palpation (GI): Soft to palpation and nontender Neuro: Cranial nerves: Yes CN's II-XII intact bilaterally and Yes Bilaterally intact EOM present Extrem: Other: no leg edema Objective Data Active Medications Acetaminophen (Acetaminophen 325 Mg Tablet) 650 mg PO Q6H PRN PRN Reason: Pain, Mild (Pain Scale 1-3) Last Admin: 07/27/21 23:09 Dose: 650 mg Documented by: RANDI Albuterol Sulfate (Albuterol Sulfate (0.083%) 2.5 Mg/3 Ml Vial.Neb) 2.5 mg INHALE Q2H PRN PRN Reason: Shortness of Breath/Wheezing Atorvastatin Calcium (Atorvastatin Calcium 80 Mg Tablet) 80 mg PO BEDTIME [facility] Last Admin: 07/28/21 21:40 Dose: 80 mg Documented by: MARK Clopidogrel Bisulfate (Clopidogrel Bisulfate 75 Mg Tablet) 75 mg PO DAILY [facility] Last Admin: 07/29/21 09:03 Dose: 75 mg Documented by: JAKE Dextrose (Dextrose 50 % 25 Gm/50 Ml Vial) 25 gm IVPUSH Q15M PRN; Protocol PRN Reason: per Hypoglycemia Standing Ord. Last Admin: 07/22/21 18:05 Dose: 25 gm Documented by: RADHA Enoxaparin Sodium (Enoxaparin Sodium 40 Mg/0.4 Ml Syringe) 40 mg SUBCUT Q24H [facility] Last Admin: 07/29/21 11:42 Dose: 40 mg Documented by: JAKE Ferrous Sulfate (Ferrous Sulfate 324 Mg Tablet.Dr) 324 mg PO DAILY [facility] Last Admin: 07/29/21 09:03 Dose: 324 mg Documented by: JAKE Furosemide (Furosemide 40 Mg Tablet) 40 mg PO BID@0900,1800 [facility]; Protocol Gabapentin (Gabapentin 100 Mg Capsule) 100 mg PO TID [facility] Last Admin: 07/29/21 09:03 Dose: 100 mg Documented by: JAKE Glucose (Glucose Gel 15 Gm Gel..Gram.) 15 gm PO Q15M PRN; Protocol PRN Reason: per Hypoglycemia Standing Ord. Insulin Human Lispro (Insulin Lispro 100 Unit/Ml 3 Ml Vial) 0 unit SUBCUT QIDACHS [facility]; Protocol Last Admin: 07/29/21 11:41 Dose: 4 unit Documented by: JAKE Lisinopril (Lisinopril 2.5 Mg Tablet) 2.5 mg PO DAILY [facility]; Protocol Last Admin: 07/28/21 08:03 Dose: Not Given Documented by: CHECO Non-Admin Reason: held bp low Ondansetron HCl (Ondansetron Hcl 4 Mg/2 Ml Vial) 4 mg IVPUSH Q8H PRN PRN Reason: Nausea and Vomiting Sodium Chloride (0.9 % Sodium Chloride Flush 3 Ml Syringe) 3 ml IVFLUSH QSHIFT [facility] Last Admin: 07/29/21 09:02 Dose: 3 ml Documented by: JAKE Labs CBC & Chem 7: 07/28/21 05:23 07/28/21 05:23 Labs: Laboratory Results - last 24 hr 07/28/21 07/28/21 07/29/21 17:35 20:24 07:17 POC Glucose 181 H 171 H 177 H Stool Occult Blood 07/29/21 07/29/21 09:10 11:02 POC Glucose 228 H Stool Occult Blood NEGATIVE Assessment and Plan (1) Non-STEMI (non-ST elevated myocardial infarction): Status: Acute Assessment and Plan: hospital d#6 81yo M with uncontrolled DM2, likely dementia, and malnutrition with recent admission 07/08-07/12/21 for renal insufficiency, hyperglycemia, fall, and inadequate self-care.? He is presenting with subacute chest pain and found to have NSTEMI with acute HFrEF; also was febrile and being treated for possible pneumonia NSTEMI - d/c'ed heparin gtt [48 h completed]. continue plavix, statin. ASA d/c given anemia - per Cardiology, medical management at this point as pt has already developed Q waves and does not have active angina. - not likely candidate for invasive workup at this time. acute HFrEF ischemic cardiomyopathy improving - transition to PO lasix - continue lisinopril, d/c imdur due to low BB - avoid BB normocytic anemia H/H stable but significant drop recently last admission had EGD + for gastritis FOBT negative - replete iron - if Hb drops <8, consider transfusion - follow CBC acute hypoxic resp failure down to 1L NC - due to CHF + pneumonia - wean O2 as tolerated pneumonia - completed 5d of ceftriaxone/doxycycline, BCx negative, PCT low DM2, uncontrolled [A1c >14], complicated by hypoglycemia - correction-dose lispro DM neuropathy - continue gabapentin moderate protein-calorie malnutrition - supplements H pylori gastritis - found on biopsy from EGD last admission - will need combination therapy with metronidazole/doxycycline/PPI/bismuth; will start upon discharge VTE ppx - LMWH dispo - STR - likely tomorrow attending: dr. waldron Quality Stroke Does the patient have a stroke diagnosis?: No VTE Prior VTE?: No VTE Risk Level:: Medical - moderate - high VTE Device Contraindication: N/A - Device Ordered VTE Drug Contraindication: N/A - Med Ordered
--- NOTE | 2021-07-29 12:10 | MHC.CLN ---
F/U PO INTAKE VARIABLE DIET RX: 2200DM CARDIAC CHOPPED-APPROPRIATE PT RECEIVING GLUCERNA TID PROVIDES 711KCALS (37% EST KCAL NEEDS), 30G PROTEIN (46% EST PROTEIN NEEDS) MONITOR PO INTAKE CLOSELY
--- NOTE | 2021-07-29 13:37 | CONS_ITS ---
DATE OF SERVICE: 07/29/2021 REFERRING PHYSICIAN: CICI Mejia REASON FOR CONSULTATION: Anemia. HISTORY OF PRESENT ILLNESS: The patient is an 81-year-old man, known to me from previous evaluation. He was hospitalized earlier in June and underwent upper endoscopy because of complaints of dysphagia and epigastric pain. Findings at that time included a gastritis without ulcers. Biopsies were obtained and pathology showed inactive inflammation in the stomach with intestinal metaplasia and H pylori. Esophagitis was noted on biopsies from the esophagus. The patient was admitted to the hospital on July 22 with chest pressure and found to have a [id number] myocardial infarction. He was treated with heparin and aspirin and has had development of anemia with his hematocrit dropping to 26.6 from 33.9 on admission. Stool occult blood testing is negative. The patient denies any abdominal pain. There has been no reported rectal bleeding. PAST MEDICAL HISTORY: 1. Coronary artery disease with OR as above. 2. Diabetes type 2. 3. Gastritis. 4. Anemia. 5. Pneumonia. 6. Neuropathy. 7. Dementia. CURRENT MEDICATIONS: His current medication list is reviewed in the chart. ALLERGIES: THERE ARE NONE KNOWN. FAMILY HISTORY: This is reviewed in the electronic medical record. SOCIAL HISTORY: The patient has been residing at the rehab facility and is not reported to smoke or abuse alcohol currently. REVIEW OF SYSTEMS: This is not reliably obtainable. PHYSICAL EXAMINATION: GENERAL: Shows an elderly male, sitting in a chair. He appears comfortable. VITAL SIGNS: Stable. SKIN: Anicteric. HEENT: Shows no scleral icterus. NECK: Without lymphadenopathy or thyromegaly. LUNGS: Clear. HEART: Shows a regular rate and rhythm. S1, S2. No murmur. ABDOMEN: Soft without focal masses or tenderness. Bowel sounds are present. No organomegaly is noted. EXTREMITIES: Without edema. LABORATORY DATA: Shows a white blood cell count of 7.1, hematocrit 26.6. Iron saturation is 17% with a ferritin of 603. IMPRESSION: Anemia. At this time, his anemia is likely at least on the basis of some blood draws while in the hospital. He does have some renal insufficiency, which may be contributing. Stool occult blood testing has been negative and there has been no reported GI bleeding, so does not seem that his anemia is due to significant GI blood loss. I would recommend continuing his proton pump inhibitor for treatment of his gastritis. H pylori will be treated as an outpatient. Colonoscopy could be considered at some point, however, he is at high risk given his recent OR and this should be deferred at this time as stools are negative for occult blood. Thanks for asking me to see him. I will follow him in the hospital with you. MD DIPESH Sawant/TRES / [id number]
[2021-07-29 16:54] LABS: Glucose, Whole Blood 205 mg/dL (60-115)
[2021-07-29] MEDS: Furosemide 40 MG TABLET PO (17:18)
[2021-07-29 20:54] LABS: Glucose, Whole Blood 254 mg/dL (60-115)
[2021-07-29] MEDS: ondansetron HCL 4 MG/2 ML VIAL IVPUSH (21:20)
[2021-07-29] MEDS: Atorvastatin Calcium 80 MG TABLET PO (21:20)
[2021-07-29] MEDS: Acetaminophen 325 MG TABLET 650 MG PO (21:21)
[2021-07-30] VITALS (8 sets, daily range): BP systolic 100–118; BP diastolic 52–65; PULSE 60–76; RESP 16–20; TEMP 36.1–37.3; O2SAT 92–96
[2021-07-30 05:41] LABS: Haptoglobin 361 mg/dL (43-212)
[2021-07-30 07:43] LABS: Glucose, Whole Blood 147 mg/dL (60-115)
--- NOTE | 2021-07-30 08:09 | ECG_ITS ---
Test Reason : CHEST PAIN Blood Pressure : / mmHG Vent. Rate : 064 BPM Atrial Rate : 064 BPM P-R Int : 178 ms QRS Dur : 084 ms QT Int : 422 ms P-R-T Axes : 023 060 040 degrees QTc Int : 435 ms Normal sinus rhythm Low voltage QRS Nonspecific T wave abnormality Abnormal ECG No significant changes seen Referred By: Adwoa Potts Electronically Signed By:JADYN AREVALO MD
[2021-07-30] MEDS: Clopidogrel Bisulfate 75 MG TABLET PO (09:29)
[2021-07-30] MEDS: 0.9 % Sodium Chloride Flush 3 ML SYRINGE IVFLUSH ×3 (09:29→22:14)
[2021-07-30] MEDS: lisinopriL 2.5 MG TABLET PO (09:29)
[2021-07-30] MEDS: Furosemide 40 MG TABLET PO (09:30)
[2021-07-30] MEDS: Ferrous Sulfate 324 MG TABLET.DR PO (09:30)
[2021-07-30] MEDS: Gabapentin 100 MG CAPSULE PO ×3 (09:30→22:10)
[2021-07-30 11:02] LABS: Glucose, Whole Blood 201 mg/dL (60-115)
[2021-07-30] MEDS: Enoxaparin Sodium 40 MG/0.4 ML SYRINGE SUBCUT (12:57)
[2021-07-30] MEDS: Insulin Lispro 100 UNIT/ML 3 ML VIAL SUBCUT ×3 (12:57→22:10)
--- NOTE | 2021-07-30 14:37 | HO.PM.IMPN ---
Subjective Subjective Date of Service: 07/30/21 Interval History: Seen examined this morning No overnight events Complaining of some central chest pain. No shortness of breath Review of Systems Review of Systems: Yes all other systems are reviewed and are negative Constitutional Constitutional: Denies chills and Denies fever(s) Cardiovascular Cardiovascular: Denies chest pain Respiratory Respiratory: Denies cough Gastrointestinal Gastrointestinal: Denies abdominal pain Physical Exam Vital Signs: Vital Signs: Last Vital Signs Temp 98.6 F 07/30/21 11:12 Pulse 69 07/30/21 11:12 Resp 18 07/30/21 11:12 BP 107/57 L 07/30/21 11:12 Pulse Ox 92 07/30/21 11:12 Body Mass Index 21.7 Const: Nutritional Appearance: well nourished HENMT: Head: Yes normocephalic and Yes atraumatic Eyes: Sclerae: sclerae normal Chest: Chest palpation & inspection: normal inspection of the chest Resp: Effort & Inspection: normal respiratory effort and no respiratory distress Cardio: Jugular venous distension: no JVD Rate: regular rate Rhythm: regular rhythm GI: Palpation (GI): Soft to palpation and nontender Neuro: Cranial nerves: Yes CN's II-XII intact bilaterally and Yes Bilaterally intact EOM present Extrem: Other: no leg edema Objective Data Active Medications Acetaminophen (Acetaminophen 325 Mg Tablet) 650 mg PO Q6H PRN PRN Reason: Pain, Mild (Pain Scale 1-3) Last Admin: 07/29/21 21:21 Dose: 650 mg Documented by: CHUCK Albuterol Sulfate (Albuterol Sulfate (0.083%) 2.5 Mg/3 Ml Vial.Neb) 2.5 mg INHALE Q2H PRN PRN Reason: Shortness of Breath/Wheezing Atorvastatin Calcium (Atorvastatin Calcium 80 Mg Tablet) 80 mg PO BEDTIME [facility] Last Admin: 07/29/21 21:20 Dose: 80 mg Documented by: CHUCK Clopidogrel Bisulfate (Clopidogrel Bisulfate 75 Mg Tablet) 75 mg PO DAILY [facility] Last Admin: 07/30/21 09:29 Dose: 75 mg Documented by: RICARDO Dextrose (Dextrose 50 % 25 Gm/50 Ml Vial) 25 gm IVPUSH Q15M PRN; Protocol PRN Reason: per Hypoglycemia Standing Ord. Last Admin: 07/22/21 18:05 Dose: 25 gm Documented by: RADHA Enoxaparin Sodium (Enoxaparin Sodium 40 Mg/0.4 Ml Syringe) 40 mg SUBCUT Q24H [facility] Last Admin: 07/30/21 12:57 Dose: 40 mg Documented by: RICARDO Ferrous Sulfate (Ferrous Sulfate 324 Mg Tablet.Dr) 324 mg PO DAILY [facility] Last Admin: 07/30/21 09:30 Dose: 324 mg Documented by: RICARDO Furosemide (Furosemide 40 Mg Tablet) 40 mg PO BID@0900,1800 [facility]; Protocol Last Admin: 07/30/21 09:30 Dose: 40 mg Documented by: RICARDO Gabapentin (Gabapentin 100 Mg Capsule) 100 mg PO TID [facility] Last Admin: 07/30/21 09:30 Dose: 100 mg Documented by: RICARDO Glucose (Glucose Gel 15 Gm Gel..Gram.) 15 gm PO Q15M PRN; Protocol PRN Reason: per Hypoglycemia Standing Ord. Insulin Human Lispro (Insulin Lispro 100 Unit/Ml 3 Ml Vial) 0 unit SUBCUT QIDACHS [facility]; Protocol Last Admin: 07/30/21 12:57 Dose: 4 unit Documented by: RICARDO Lisinopril (Lisinopril 2.5 Mg Tablet) 2.5 mg PO DAILY [facility]; Protocol Last Admin: 07/30/21 09:29 Dose: 2.5 mg Documented by: RICARDO Ondansetron HCl (Ondansetron Hcl 4 Mg/2 Ml Vial) 4 mg IVPUSH Q8H PRN PRN Reason: Nausea and Vomiting Last Admin: 07/29/21 21:20 Dose: 4 mg Documented by: CHUCK Sodium Chloride (0.9 % Sodium Chloride Flush 3 Ml Syringe) 3 ml IVFLUSH QSHIFT [facility] Last Admin: 07/30/21 09:29 Dose: 3 ml Documented by: RICARDO Labs CBC & Chem 7: 07/28/21 05:23 07/28/21 05:23 Labs: Laboratory Results - last 24 hr 07/26/21 07/29/21 07/29/21 08:43 16:33 20:50 Haptoglobin 361 H POC Glucose 205 H 254 H Troponin I High Sens 07/30/21 07/30/21 07/30/21 07:22 08:44 10:58 Haptoglobin POC Glucose 147 H 201 H Troponin I High Sens 232.0 H* D Assessment and Plan (1) Non-STEMI (non-ST elevated myocardial infarction): Status: Acute Assessment and Plan: 81yo M with uncontrolled DM2, likely dementia, and malnutrition with recent admission 07/08-07/12/21 for renal insufficiency, hyperglycemia, fall, and inadequate self-care.? He is presenting with subacute chest pain and found to have NSTEMI with acute HFrEF; also was febrile and being treated for possible pneumonia NSTEMI - d/c'ed heparin gtt [48 h completed]. continue plavix, statin. ASA d/c given anemia - per Cardiology, medical management at this point as pt has already developed Q waves and does not have active angina. - not likely candidate for invasive workup at this time. acute HFrEF ischemic cardiomyopathy seems more fluid overloaded today. overall balance + -resume IV lasix -strict Is and Os - continue lisinopril, d/c imdur due to low BB - avoid BB normocytic anemia H/H stable but significant drop recently last admission had EGD + for gastritis FOBT negative - replete iron - if Hb drops <8, consider transfusion - follow CBC acute hypoxic resp failure - due to CHF + pneumonia - wean O2 as tolerated pneumonia - completed 5d of ceftriaxone/doxycycline, BCx negative, PCT low DM2, uncontrolled [A1c >14], complicated by hypoglycemia - correction-dose lispro DM neuropathy - continue gabapentin moderate protein-calorie malnutrition - supplements H pylori gastritis - found on biopsy from EGD last admission - will need combination therapy with metronidazole/doxycycline/PPI/bismuth; will start upon discharge VTE ppx - LMWH dispo - STR attending: dr. dias Quality Stroke Does the patient have a stroke diagnosis?: No VTE Prior VTE?: No VTE Risk Level:: Medical - moderate - high VTE Device Contraindication: N/A - Device Ordered VTE Drug Contraindication: N/A - Med Ordered
[2021-07-30 16:29] LABS: Glucose, Whole Blood 229 mg/dL (60-115)
[2021-07-30] MEDS: Furosemide 40 MG/4 ML VIAL IVPUSH (16:29)
--- NOTE | 2021-07-30 16:34 | PC.NURSE ---
Removed decker cath at ~10:00am, pt hadnt voided through day. States doesnt feel urge to void at this time. Bladder scanned pt at 1600 for 577ml. Pt still unable to void on his own. PA notified, order to place decker cath back into pt.
[2021-07-30 20:40] LABS: Glucose, Whole Blood 195 mg/dL (60-115)
[2021-07-30] MEDS: Atorvastatin Calcium 80 MG TABLET PO (22:10)
[2021-07-31] VITALS (9 sets, daily range): BP systolic 99–117; BP diastolic 52–64; PULSE 66–80; RESP 18–20; TEMP 36.1–37.2; O2SAT 87–98
[2021-07-31 07:19] LABS: Glucose, Whole Blood 292 mg/dL (60-115)
[2021-07-31] MEDS: Insulin Lispro 100 UNIT/ML 3 ML VIAL SUBCUT ×3 (08:00→16:39)
[2021-07-31] MEDS: Clopidogrel Bisulfate 75 MG TABLET PO (08:01)
[2021-07-31] MEDS: 0.9 % Sodium Chloride Flush 3 ML SYRINGE IVFLUSH ×3 (08:01→21:49)
[2021-07-31] MEDS: Gabapentin 100 MG CAPSULE PO ×3 (08:01→21:48)
[2021-07-31] MEDS: lisinopriL 2.5 MG TABLET PO (08:01)
[2021-07-31] MEDS: Furosemide 40 MG/4 ML VIAL IVPUSH ×2 (08:01→16:39)
[2021-07-31] MEDS: Ferrous Sulfate 324 MG TABLET.DR PO (08:02)
[2021-07-31 11:19] LABS: Glucose, Whole Blood 236 mg/dL (60-115)
[2021-07-31] MEDS: Omeprazole 20 MG CAPSULE.DR PO (11:35)
--- NOTE | 2021-07-31 12:52 | HO.PM.IMPN ---
Subjective Subjective Date of Service: 07/31/21 Interval History: seen and examined this morning follow up for chf no sob, chest pain sore throat Review of Systems Review of Systems: Yes all other systems are reviewed and are negative Constitutional Constitutional: Denies chills and Denies fever(s) Cardiovascular Cardiovascular: Denies chest pain Respiratory Respiratory: Denies cough Gastrointestinal Gastrointestinal: Denies abdominal pain Physical Exam Vital Signs: Vital Signs: Last Vital Signs Temp 97 F 07/31/21 11:11 Pulse 71 07/31/21 11:11 Resp 18 07/31/21 11:11 BP 110/55 L 07/31/21 11:11 Pulse Ox 97 07/31/21 11:11 Body Mass Index 21.7 Const: Nutritional Appearance: well nourished HENMT: Head: Yes normocephalic and Yes atraumatic Eyes: Sclerae: sclerae normal Chest: Chest palpation & inspection: normal inspection of the chest Resp: Effort & Inspection: normal respiratory effort and no respiratory distress Cardio: Jugular venous distension: JVD Rate: regular rate Rhythm: regular rhythm GI: Palpation (GI): Soft to palpation and nontender Neuro: Cranial nerves: Yes CN's II-XII intact bilaterally and Yes Bilaterally intact EOM present Extrem: Other: no leg edema Objective Data Active Medications Acetaminophen (Acetaminophen 325 Mg Tablet) 650 mg PO Q6H PRN PRN Reason: Pain, Mild (Pain Scale 1-3) Last Admin: 07/29/21 21:21 Dose: 650 mg Documented by: CHUCK Albuterol Sulfate (Albuterol Sulfate (0.083%) 2.5 Mg/3 Ml Vial.Neb) 2.5 mg INHALE Q2H PRN PRN Reason: Shortness of Breath/Wheezing Atorvastatin Calcium (Atorvastatin Calcium 80 Mg Tablet) 80 mg PO BEDTIME [facility] Last Admin: 07/30/21 22:10 Dose: 80 mg Documented by: CHUCK Benzocaine (Throat Lozenge, Medicated Lozenge) 1 lozenge MUCOUS MEM Q2H PRN PRN Reason: Sore Throat Clopidogrel Bisulfate (Clopidogrel Bisulfate 75 Mg Tablet) 75 mg PO DAILY [facility] Last Admin: 07/31/21 08:01 Dose: 75 mg Documented by: RICARDO Dextrose (Dextrose 50 % 25 Gm/50 Ml Vial) 25 gm IVPUSH Q15M PRN; Protocol PRN Reason: per Hypoglycemia Standing Ord. Last Admin: 07/22/21 18:05 Dose: 25 gm Documented by: RADHA Enoxaparin Sodium (Enoxaparin Sodium 40 Mg/0.4 Ml Syringe) 40 mg SUBCUT Q24H [facility] Last Admin: 07/30/21 12:57 Dose: 40 mg Documented by: RICARDO Ferrous Sulfate (Ferrous Sulfate 324 Mg Tablet.) 324 mg PO DAILY [facility] Last Admin: 07/31/21 08:02 Dose: 324 mg Documented by: RICARDO Furosemide (Furosemide 40 Mg Tablet) 40 mg PO BID@0900,1800 [facility]; Protocol Last Admin: 07/31/21 09:38 Dose: Not Given Documented by: LIZZY Non-Admin Reason: Previously Administered Gabapentin (Gabapentin 100 Mg Capsule) 100 mg PO TID [facility] Last Admin: 07/31/21 08:01 Dose: 100 mg Documented by: RICARDO Glucose (Glucose Gel 15 Gm Gel..Gram.) 15 gm PO Q15M PRN; Protocol PRN Reason: per Hypoglycemia Standing Ord. Insulin Human Lispro (Insulin Lispro 100 Unit/Ml 3 Ml Vial) 0 unit SUBCUT QIDACHS [facility]; Protocol Last Admin: 07/31/21 11:34 Dose: 4 unit Documented by: RICARDO Lisinopril (Lisinopril 2.5 Mg Tablet) 2.5 mg PO DAILY [facility]; Protocol Last Admin: 07/31/21 08:01 Dose: 2.5 mg Documented by: RICARDO Omeprazole (Omeprazole 20 Mg Capsule.) 20 mg PO DAILY@0630 [facility] Last Admin: 07/31/21 11:35 Dose: 20 mg Documented by: RICARDO Ondansetron HCl (Ondansetron Hcl 4 Mg/2 Ml Vial) 4 mg IVPUSH Q8H PRN PRN Reason: Nausea and Vomiting Last Admin: 07/29/21 21:20 Dose: 4 mg Documented by: CHUCK Sodium Chloride (0.9 % Sodium Chloride Flush 3 Ml Syringe) 3 ml IVFLUSH QSHIFT [facility] Last Admin: 07/31/21 08:01 Dose: 3 ml Documented by: RICARDO Labs CBC & Chem 7: 07/28/21 05:23 07/28/21 05:23 Labs: Laboratory Results - last 24 hr 07/30/21 07/30/21 07/31/21 16:25 20:27 07:12 POC Glucose 229 H 195 H 292 H 07/31/21 11:11 POC Glucose 236 H Assessment and Plan (1) Non-STEMI (non-ST elevated myocardial infarction): Status: Acute Assessment and Plan: 81yo M with uncontrolled DM2, likely dementia, and malnutrition with recent admission 07/08-07/12/21 for renal insufficiency, hyperglycemia, fall, and inadequate self-care.? He is presenting with subacute chest pain and found to have NSTEMI with acute HFrEF; also was febrile and being treated for possible pneumonia NSTEMI - d/c'ed heparin gtt [48 h completed]. continue plavix, statin. ASA d/c given anemia - per Cardiology, medical management at this point as pt has already developed Q waves and does not have active angina. - not likely candidate for invasive workup at this time. acute HFrEF ischemic cardiomyopathy - change to PO lasix - strict Is and Os - continue lisinopril, d/c imdur due to low BB - avoid BB normocytic anemia H/H stable but significant drop recently last admission had EGD + for gastritis FOBT negative - replete iron - if Hb drops <8, consider transfusion - follow CBC acute hypoxic resp failure due to CHF + pneumonia resolved on room air pneumonia - completed 5d of ceftriaxone/doxycycline, BCx negative, PCT low DM2, uncontrolled [A1c >14], complicated by hypoglycemia - correction-dose lispro DM neuropathy - continue gabapentin moderate protein-calorie malnutrition - supplements H pylori gastritis - found on biopsy from EGD last admission - will need combination therapy with metronidazole/doxycycline/PPI/bismuth; will start upon discharge VTE ppx - LMWH dispo - STR attending: dr. olson dispo: to SNF when bed availability (2) Acute systolic (congestive) heart failure: Status: Acute Quality Stroke Does the patient have a stroke diagnosis?: No VTE Prior VTE?: No VTE Risk Level:: Medical - moderate - high VTE Device Contraindication: N/A - Device Ordered VTE Drug Contraindication: N/A - Med Ordered
[2021-07-31] MEDS: Enoxaparin Sodium 40 MG/0.4 ML SYRINGE SUBCUT (14:16)
[2021-07-31] MEDS: Throat Lozenge, Medicated LOZENGE 1 LOZENGE MUCOUS MEM (14:16)
[2021-07-31 15:55] LABS: Glucose, Whole Blood 168 mg/dL (60-115)
--- NOTE | 2021-07-31 16:19 | MHC.CM.PN ---
PT IS MEDICALLY READY FOR DC. UPDATES SENT TO SNF'S THAT WERE FOLLOWING. CM CURRENTLY AWAITING RESPONSES TO DETERMINE IF ANY HAVE A BED AVAILABLE FOR TODAY
[2021-07-31] MEDS: oxyCODONE HCl Immed Release 5 MG TABLET PO (16:39)
--- NOTE | 2021-07-31 18:46 | PC.NURSE ---
Pt states groin pain 5/10 and discomfort with decker catheter. 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 Pt was slumped in bed at 16:30 with SaO2 87% RA, drowsy but no visible work of breathing. 1x IV lasix dose administered. PA notified about oxygen sats and pain. Applied nasal cannula oxygen 0.5L and sats improved to 97%. Pt given oxycodone PO and is resting comfortably, vital signs stable.
[2021-07-31 19:43] LABS: Glucose, Whole Blood 132 mg/dL (60-115)
[2021-07-31] MEDS: Atorvastatin Calcium 80 MG TABLET PO (21:48)
[2021-08-01 03:32] VITALS: BP 102/57; PULSE 68; RESP 18; TEMP 36.7; O2SAT 90
[2021-08-01] MEDS: Omeprazole 20 MG CAPSULE.DR PO (06:21)
[2021-08-01 07:22] VITALS: BP 103/55; PULSE 67; RESP 18; TEMP 37.1; O2SAT 93
[2021-08-01 07:56] LABS: Glucose, Whole Blood 164 mg/dL (60-115)
[2021-08-01 10:21] VITALS: BP 103/55; PULSE 67
[2021-08-01] MEDS: Clopidogrel Bisulfate 75 MG TABLET PO (10:21)
[2021-08-01] MEDS: lisinopriL 2.5 MG TABLET PO (10:21)
[2021-08-01] MEDS: Ferrous Sulfate 324 MG TABLET.DR PO (10:21)
[2021-08-01] MEDS: Gabapentin 100 MG CAPSULE PO ×2 (10:21→14:23)
--- NOTE | 2021-08-01 11:13 | MHC.CM.PN ---
Addendum entered by Heather Rodriguez 08/01/21 12:38: CM RECEIVED A RETURN CALL FROM PTS SON, SAMUEL. HE WAS INFORMED OF BED OFFERS AND REPORTED HE WOULD PREFER [facility] BECAUSE HE DID NOT FEEL THEY TOOK CARE OF HIS FATHER AT [facility]. HE IS AWARE PT WILL DC VIA [facility] AT 1600 HOURS TODAY. HE ALSO REPORTS HE WILL CONTACT THE PTS PCP TO DETERMINE IF HOME SERVICES CAN BE ARRANGED. Original Note: CURRENTLY THE ONLY FACILITIES OFFERING A STR BED FOR THIS PT ARE [facility], WHERE HE HAS BEEN IN THE PAST AND STAYED ONLY 3 DAYS, AND [facility]. CM DID ATTEMPT TO CONTACT PTS SON/HCP, SAMUEL ([phone]) TO DETERMINE IF THEY WOULD ACCEPT THIS BED OFFER HOWEVER THE CALL WENT TO . A MESSAGE WAS LEFT WITH ABOVE INFO AND A REQUEST FOR A RETURN CALL
--- NOTE | 2021-08-01 11:18 | PM.IMPN ---
Progress Note: A&P (1) Non-STEMI (non-ST elevated myocardial infarction): Status: Acute (2) Pneumonia: Status: Acute (3) Acute systolic (congestive) heart failure: Status: Acute Assessment and Plan: 81yo M with uncontrolled DM2, likely dementia, and malnutrition with recent admission 07/08-07/12/21 for renal insufficiency, hyperglycemia, fall, and inadequate self-care.? He is presenting with subacute chest pain and found to have NSTEMI with acute HFrEF; also was febrile and being treated for possible pneumonia NSTEMI - completed heparin gtt [48 h completed].? - continue plavix, statin. ASA d/c given anemia - per Cardiology, medical management at this point as pt has already developed Q waves and does not have active angina.? acute HFrEF ischemic cardiomyopathy - change to PO lasix - strict Is and Os - continue lisinopril, d/c imdur due to low BB - avoid BB normocytic anemia H/H stable but significant drop recently last admission had EGD + for gastritis FOBT negative - replete iron - if Hb drops <8, consider transfusion - follow CBC acute hypoxic resp failure due to CHF + pneumonia resolved on room air Community acquired pneumonia - completed 5d of ceftriaxone/doxycycline, BCx negative, PCT low DM2, uncontrolled [A1c >14], complicated by hypoglycemia - correction-dose lispro DM neuropathy - continue gabapentin moderate protein-calorie malnutrition - supplements H pylori gastritis - found on biopsy from EGD last admission - will need combination therapy with metronidazole/doxycycline/PPI/bismuth; will start upon discharge VTE ppx - LMWH dispo - STR attending: Dr. Ferrer DISPO to SNF when bed availability Subjective Subjective Date of Service: 08/01/21 Review of Systems Follow up NSTEMI no chest pain or SOB good appetite Physical Exam Vital Signs: Vital Signs: Last Vital Signs Temp 98.8 F 08/01/21 07:22 Pulse 67 08/01/21 10:21 Resp 18 08/01/21 07:22 BP 103/55 L 08/01/21 10:21 Pulse Ox 93 08/01/21 07:22 Body Mass Index 21.7 Appearing in no acute distress lung sounds are clear to auscultation heart regular rate rhythm, clear S1, S2 positive bowel sounds, abdomen is soft, nontender neuro patient is alert x3, no focal deficits Objective Data Current Medications Acetaminophen (Acetaminophen 325 Mg Tablet) 650 mg PO Q6H PRN PRN Reason: Pain, Mild (Pain Scale 1-3) Last Admin: 07/29/21 21:21 Dose: 650 mg Documented by: Albuterol Sulfate (Albuterol Sulfate (0.083%) 2.5 Mg/3 Ml Vial.Neb) 2.5 mg INHALE Q2H PRN PRN Reason: Shortness of Breath/Wheezing Atorvastatin Calcium (Atorvastatin Calcium 80 Mg Tablet) 80 mg PO BEDTIME [facility] Last Admin: 07/31/21 21:48 Dose: 80 mg Documented by: Benzocaine (Throat Lozenge, Medicated Lozenge) 1 lozenge MUCOUS MEM Q2H PRN PRN Reason: Sore Throat Last Admin: 07/31/21 14:16 Dose: 1 lozenge Documented by: Clopidogrel Bisulfate (Clopidogrel Bisulfate 75 Mg Tablet) 75 mg PO DAILY [facility] Last Admin: 08/01/21 10:21 Dose: 75 mg Documented by: Dextrose (Dextrose 50 % 25 Gm/50 Ml Vial) 25 gm IVPUSH Q15M PRN; Protocol PRN Reason: per Hypoglycemia Standing Ord. Last Admin: 07/22/21 18:05 Dose: 25 gm Documented by: Enoxaparin Sodium (Enoxaparin Sodium 40 Mg/0.4 Ml Syringe) 40 mg SUBCUT Q24H [facility] Last Admin: 07/31/21 14:16 Dose: 40 mg Documented by: Ferrous Sulfate (Ferrous Sulfate 324 Mg Tablet.Dr) 324 mg PO DAILY [facility] Last Admin: 08/01/21 10:21 Dose: 324 mg Documented by: Furosemide (Furosemide 40 Mg Tablet) 40 mg PO BID@0900,1800 [facility]; Protocol Last Admin: 07/31/21 09:38 Dose: Not Given Documented by: Gabapentin (Gabapentin 100 Mg Capsule) 100 mg PO TID [facility] Last Admin: 08/01/21 10:21 Dose: 100 mg Documented by: Glucose (Glucose Gel 15 Gm Gel..Gram.) 15 gm PO Q15M PRN; Protocol PRN Reason: per Hypoglycemia Standing Ord. Insulin Human Lispro (Insulin Lispro 100 Unit/Ml 3 Ml Vial) 0 unit SUBCUT QIDACHS [facility]; Protocol Last Admin: 08/01/21 09:59 Dose: Not Given Documented by: Lisinopril (Lisinopril 2.5 Mg Tablet) 2.5 mg PO DAILY [facility]; Protocol Last Admin: 08/01/21 10:21 Dose: 2.5 mg Documented by: Omeprazole (Omeprazole 20 Mg Capsule.) 20 mg PO DAILY@0630 [facility] Last Admin: 08/01/21 06:21 Dose: 20 mg Documented by: Ondansetron HCl (Ondansetron Hcl 4 Mg/2 Ml Vial) 4 mg IVPUSH Q8H PRN PRN Reason: Nausea and Vomiting Last Admin: 07/29/21 21:20 Dose: 4 mg Documented by: Sodium Chloride (0.9 % Sodium Chloride Flush 3 Ml Syringe) 3 ml IVFLUSH QSHIFT [facility] Last Admin: 08/01/21 07:57 Dose: Not Given Documented by: Labs CBC & Chem 7: 07/28/21 05:23 07/28/21 05:23 Labs: Laboratory Results - last 24 hr 07/31/21 07/31/21 07/31/21 11:11 15:51 19:39 POC Glucose 236 H 168 H 132 H 08/01/21 07:21 POC Glucose 164 H Microbiology Microbiology Results: Microbiology 07/22/21 17:02 Blood - Venous Blood Culture - Final No growth after 5 days. 07/22/21 15:12 Blood - Venous Blood Culture - Final No growth after 5 days. Quality Stroke Does the patient have a stroke diagnosis?: No VTE Prior VTE?: No VTE Risk Level:: Medical - moderate - high VTE Device Contraindication: N/A - Device Ordered VTE Drug Contraindication: N/A - Med Ordered
--- NOTE | 2021-08-01 11:26 | PM.DS ---
DS: Providers Provider Date of Service: 08/01/21 Date of admission: 07/22/21 16:08 Primary care physician: Jailyn Vergara MD Consults: 07/22/21 15:38 Consult to Cardiology Stat Consulting Provider: Jerel Munoz Reason for consultation: Non STEMI 07/22/21 16:06 Consult to Cardiology Stat Consulting Provider: Jerel Munoz Reason for consultation: STEMI/NSTEMI Attending physician on discharge: Madison Ferrer Discharging clinician: Pau Everett DS: Diagnosis Discharge Diagnosis (1) Non-STEMI (non-ST elevated myocardial infarction): Status: Acute (2) Pneumonia: Status: Acute (3) Acute systolic (congestive) heart failure: Status: Acute (4) H pylori ulcer: Status: Acute DS: Summary Hospital Course Hospital Course: HP as per admitting provider This is an 81yo M with uncontrolled DM2, non-adherent with insulin, who was admitted to [facility] 07/08-07/12/21 for renal insufficiency and hyperglycemia after fall.? He was found to be living in [facility] and [facility].? Hospitalization was notable for prerenal azotemia that resolved with IV fluid hydration, uncontrolled DM2 with A1c >14 but complicated by a hypoglycemic episode, candidal balanitis, and likely diagnosis of dementia.? He was noted to be malnourished and started on supplementation.? 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 At rehabiltation, he developed pressure-type chest pain with associated diaphoresis and dyspnea about 3-4 days ago; however, he told the ED physician that this has been going on for 2 months.? The pain radiates up the left arm and into the jaw.? He was given aspirin and nitroglycerin paste and states that currently the pain is 2/10.? Initial troponin-I was 715.? Electrocardiography showed septal Q waves and anterior ST depressions. ? In retrospect, his ED EKG from 07/08/21 was reviewed and showed anterior ST elevations, though he was not complaining of chest pain at that time.? Troponin-I back then was 5.6. ? Echocardiogram today demonstrated regional wall motion abnormalities.? BNP was 1550.? Cardiology was consulted by the ED physician and the patient was started on heparin infusion and given 20 mg of IV furosemide. He does note a cough with thin sputum for the past few days.? He was also noted to be mildly febrile to 100.9 with WBC elevated to 12.6.? Initial lactate was 3.? Chest X-ray demonstrated diffuse infiltrates suspicious for infiltrate versus edema.? He was given ceftriaxone and doxycycline after blood cultures were drawn . NSTEMI - Completed 48hours of heparin drip. continue plavix, statin. - per Cardiology, medical management at this point as pt has already developed Q waves and does not have active angina.? - not likely candidate for invasive workup. acute HFrEF. ischemic cardiomyopathy - initially treated with IV lasix, changed to PO lasix - strict Is and Os - continue lisinopril, imdur stopped due to low Blood pressure - avoid Beta blockers normocytic anemia H/H stable but significant drop recently last admission had EGD + for gastritis FOBT negative - repleted iron, no transfusion required acute hypoxic resp failure secondary to CHF + pneumonia - completed 5d of ceftriaxone/doxycycline, BCx negative DM2, uncontrolled [A1c >14], complicated by hypoglycemia - correction-dose lispro H pylori gastritis - found on biopsy from EGD last admission - will need combination therapy with metronidazole/doxycycline/PPI/bismuth; will start upon discharge - Follow up with gastroenterology as outpatient Less than 30 day stay Time Spent with Patient Time attestation: Total time spent providing and/or coordinating discharge services: Discharge coordination time: Greater than 30 minutes Quality: Stroke Does the patient have a stroke diagnosis?: No Physical Exam Vital Signs: Vital Signs: Last Vital Signs Temp 98.8 F 08/01/21 07:22 Pulse 67 08/01/21 10:21 Resp 18 08/01/21 07:22 BP 103/55 L 08/01/21 10:21 Pulse Ox 93 08/01/21 07:22 Body Mass Index 21.7 Appearing in no acute distress head is normocephalic atraumatic eyes pupils are PERRLA sclera is anicteric mouth throat mucous membranes are intact and moist neck is supple no lymphadenopathy, no JVD noted lung sounds are clear to auscultation heart regular rate rhythm, clear S1, S2 positive bowel sounds, abdomen is soft, nontender neuro patient is alert x3, no focal deficits DS: Data Data Completed and Pending Completed studies during hospitalization [Text1]: Procedures Excision of Esophagus, Via Natural or Artificial Opening Endoscopic, Diagnostic (07/08/21) Excision of Stomach, Pylorus, Via Natural or Artificial Opening Endoscopic, Diagnostic (07/08/21) Labs on day of discharge: Laboratory Results - last 24 hr 07/31/21 07/31/21 08/01/21 15:51 19:39 07:21 POC Glucose 168 H 132 H 164 H Discharge Plan Discharge Anticipated Discharge Date/Time: 08/01/21 12:52 Patient Disposition: Xfer Inpatient Rehab Fac Discharge Diagnosis: NSTEMI VICKY on CKD Acute HFrEF Acute hypoxic respiratory failure secondary to community acquired pneumonia Referrals: Jailyn Vergara MD [Primary Care Provider] - 1 Week Dexter Rosario [Physician] - 1 Week (H. pylori follow up ) Discharge Medications: New albuterol sulfate 2.5 mg /3 mL (0.083 %) Solution For Nebulization 2.5 mg inhalation Q2H PRN (Reason: Shortness Of Breath/Wheezing) Qty: 3 RF: 0 clopidogrel 75 mg Tablet 75 mg PO DAILY Qty: 75 RF: 0 ferrous sulfate 324 mg (65 mg iron) Tablet,Delayed Release (Dr/Ec) 324 mg PO DAILY Qty: 30 RF: 0 furosemide 40 mg Tablet 40 mg PO BID@0900,1800 Qty: 60 RF: 0 atorvastatin 80 mg Tablet 80 mg PO BEDTIME Qty: 30 RF: 0 omeprazole 20 mg Capsule,Delayed Release(Dr/Ec) 20 mg PO DAILY@0630 Qty: 30 RF: 0 gabapentin 100 mg Capsule 100 mg PO TID Qty: 90 RF: 0 lisinopril 2.5 mg Tablet 2.5 mg PO DAILY Qty: 30 RF: 0 bismuth subsalicylate 262 mg tablet,chewable 2 tab PO QID Qty: 56 RF: 0 metronidazole 250 mg tablet 250 mg PO QID Qty: 56 RF: 0 doxycycline hyclate 100 mg tablet 100 mg PO BID Qty: 28 RF: 0 Continued gabapentin 100 mg capsule 2 cap PO BEDTIME RF: 0 Levemir FlexTouch U-100 Insuln 100 unit/mL (3 mL) insulin pen 50 unit subcut DAILY@1300 RF: 0 Hold Instructions: Resume on 07/18/21. hold due to hypoglycemia episodes, slowly introduce in next few days if fingersticks the remain uncontrolled above 200 mg/dL, start on a lower dose of Levemir as per rehab. Discontinued amoxicillin 500 mg capsule 2 cap PO BID RF: 0 clarithromycin 500 mg tablet 1 tab PO Q12H RF: 0 Discharge Orders: Discharge Order (Routine); Ordered 08/01/21 Ordered By: Pau Everett Diet: advance to usual diet Activity on Discharge: As tolerated Stand Alone Forms: Patient Portal Discharge page Care Plan Goals: continue medications at home as prescribed when discharged from rehabilitation Health Concerns: NSTEMI VICKY on CKD Acute HFrEF Acute hypoxic respiratory failure secondary to community acquired pneumonia Plan of Treatment: Follow up with your Primary care provider as needed Assessment: See discharge summary Less than 30 day stay
[2021-08-01 11:40] LABS: Glucose, Whole Blood 314 mg/dL (60-115)
[2021-08-01] MEDS: Enoxaparin Sodium 40 MG/0.4 ML SYRINGE SUBCUT (11:46)
[2021-08-01] MEDS: Insulin Lispro 100 UNIT/ML 3 ML VIAL SUBCUT (11:46)
[2021-08-01 12:00] VITALS: BP 112/65; PULSE 75; RESP 18; TEMP 36.7; O2SAT 95
--- NOTE | 2021-08-01 12:26 | MHC.CLN ---
F/U PO INTAKE 50-100% VARIABLE DIET RX: 2200DM CARDIAC CHOPPED 1200CC F.R.-APPROPRIATE PT RECEIVING GLUCERNA TID PROVIDES 711KCALS (37% EST KCAL NEEDS), 30G PROTEIN (46% EST PROTEIN NEEDS), 606CC FREE WATER FROM SUPPLEMENT (FOR FLUID RESTRICTION) MONITOR PO INTAKE AND WEIGHT CLOSELY
--- NOTE | 2021-08-01 15:37 | PC.NURSE ---
1537. [facility] did flower buncher or picker and report was given.
[2021-08-01 15:56] VITALS: BP 107/58; PULSE 67; RESP 18; TEMP 37.3; O2SAT 94
[2021-08-01 16:29] LABS: Glucose, Whole Blood 155 mg/dL (60-115)
== END 2021-08-01 16:48 | DRG 280 ==
LOC: HO.ED 15:37 → HO.EDOVER 16:58 → HO.IMC 07-23 14:01
PROVIDERS: Hospitalist; Internal Medicine; Internal Medicine Cardiovascular Disease; Physician Assistant Medical; Admitting Provider Family Medicine; Emergency Provider Internal Medicine; PCP Family Medicine; Visit Provider Nurse Practitioner Acute Care
DX: I21.4 Non-ST elevation (NSTEMI) myocardial infarction (principal); J18.9 Pneumonia, unspecified organism; I50.21 Acute systolic (congestive) heart failure; J96.01 Acute respiratory failure with hypoxia; E44.0 Moderate protein-calorie malnutrition; B96.81 Helicobacter pylori [H. pylori] as the cause of diseases classified elsewhere; K29.60 Other gastritis without bleeding; E11.649 Type 2 diabetes mellitus with hypoglycemia without coma; F03.90 Unspecified dementia, unspecified severity, without behavioral disturbance, psychotic disturbance, mood disturbance, and anxiety; E11.40 Type 2 diabetes mellitus with diabetic neuropathy, unspecified; I25.10 Atherosclerotic heart disease of native coronary artery without angina pectoris; I25.5 Ischemic cardiomyopathy; D63.1 Anemia in chronic kidney disease; Z68.21 Body mass index [BMI] 21.0-21.9, adult; Z20.822 Contact with and (suspected) exposure to COVID-19; Z91.14 Patient's other noncompliance with medication regimen; Z87.891 Personal history of nicotine dependence; Z79.02 Long term (current) use of antithrombotics/antiplatelets; Z79.899 Other long term (current) drug therapy
CPT/HCPCS: 36415; 71045; 71046; 80048; 80076; 81003; 82247; 82272; 82550; 82728; 82947; 83010; 83540; 83605; 83615; 83735; 83880; 84145; 84484; 85025; 85027; 85045; 85610; 85730; 86880; 87040; 87635; 93005; 93306; 96365; 96375; 96376; 97110; 97116; 97162; 99285; 99291; C1758; J0696; J1650; J1940; J2405